=== PATIENT | male | born 1980 | race American Indian/Alaskan Native ===

== ENCOUNTER 2020-07-22 21:13 | Inpatient (IN) | payer OTHER ==
[2020-07-22] MEDS ORDERED: SODIUM CHLORIDE 0.9% 1000 ML 1,000 ML IV ONE ×2 (21:16→22:25)
--- NOTE | 2020-07-22 21:19 | Emergency Department Report ---
- General Chief complaint: Weakness Stated complaint: WEAKNESS/TIRED PUI?: No Time Seen by Provider: 07/22/20 21:15 Source: patient, EMS Mode of arrival: Stretcher Limitations: Altered Mental Status - History of Present Illness Initial comments: Patient is a 39-year-old male that presents emergency room with complaints of weakness and lethargy. Patient's family called 911. Patient brought to the ER by EMS. EMS report received. EMS states that the call came out as patient was lethargic. EMS states when they arrived the patient was in the bathtub and unable to get out due to global weakness. EMS states that the patient sugar was checked and and the machine just read high. Patient states he is just been tired all day today. Patient states he has not had energy all day. Patient states his symptoms are worsening. Patient states that he is also been increased urination for 2 weeks. Patient states he has had nocturia for 2 weeks. Patient states she has had increased thirst and hunger as well. Patient denies fall. Patient denies trauma. Patient denies head injury. Patient denies loss of consciousness or syncope. Patient states he does not have a history of diabetes. Patient states he has no past medical history and takes no medications. Patient denies recent travel. Patient denies recent international travel. Patient denies exposure to the novel coronavirus. Patient denies sick contacts. Patient denies fever and chills. Patient denies cough. Patient denies diarrhea. Patient denies coming in contact with anybody with symptoms of the novel coronavirus. MD Complaint: generalized weakness -: Sudden Location: generalized Severity: severe Consistency: constant Improves with: rest Worsens with: movement, exertion Associated Symptoms: loss of appetite. denies: chest pain, confusion, dark stools, diaphoresis, dysuria, easy bruising, fever/chills, headaches, rash, shortness of breath, syncope - Related Data Home Medications Medication Instructions Recorded Confirmed Last Taken Amoxicillin CAP 125 mg PO BID 07/23/20 07/23/20 07/22/20 125 mg Allergies Allergy/AdvReac Type Severity Reaction Status Date / Time No Known Allergies Allergy Unverified 07/22/20 22:27 ED Review of Systems ROS: Stated complaint: WEAKNESS/TIRED Other details as noted in HPI Constitutional: malaise, weakness. denies: chills, fever Eyes: denies: eye pain, eye discharge, vision change ENT: denies: ear pain, throat pain Respiratory: denies: cough, shortness of breath, wheezing Cardiovascular: denies: chest pain, palpitations Endocrine: no symptoms reported, increased hunger, increased thirst, increased urine Gastrointestinal: denies: abdominal pain, nausea, diarrhea Genitourinary: denies: urgency, dysuria Musculoskeletal: denies: back pain, joint swelling, arthralgia Skin: denies: rash, lesions Neurological: denies: headache, weakness, paresthesias Psychiatric: denies: anxiety, depression Hematological/Lymphatic: denies: easy bleeding, easy bruising ED Past Medical Hx - Past Medical History Previous Medical History?: No - Surgical History Past Surgical History?: No - Family History Family history: no significant - Social History Smoking Status: Never Smoker Substance Use Type: None - Medications Home Medications: Home Medications Medication Instructions Recorded Confirmed Last Taken Type Amoxicillin CAP 125 mg PO BID 07/23/20 07/23/20 07/22/20 History 125 mg ED Physical Exam - General General appearance: in no apparent distress, lethargic (But easily arousable) - Head Head exam: Present: atraumatic, normocephalic - Eye Eye exam: Present: normal appearance, PERRL Pupils: Present: normal accommodation - ENT ENT exam: Present: mucous membranes moist - Neck Neck exam: Present: normal inspection - Respiratory Respiratory exam: Present: normal lung sounds bilaterally. Absent: respiratory distress - Cardiovascular Cardiovascular Exam: Present: regular rate, normal rhythm. Absent: systolic murmur, diastolic murmur, rubs, gallop - GI/Abdominal GI/Abdominal exam: Present: soft, normal bowel sounds. Absent: distended, tenderness - Rectal Rectal exam: Present: deferred - Extremities Exam Extremities exam: Present: normal inspection - Back Exam Back exam: Present: normal inspection - Neurological Exam Neurological exam: Present: altered, oriented X3, CN II-XII intact. Absent: motor sensory deficit - Psychiatric Psychiatric exam: Present: normal affect, normal mood - Skin Skin exam: Present: warm, dry, intact, normal color. Absent: rash - Assessment Assessment Interval: Baseline - Level of Consciousness 1a. Level of Consciousness: alert/keenly responsive - LOC Questions 1b. LOC Questions: answers both correctly - LOC Command 1c. LOC Commands: performs tasks correctly - Best Gaze 2. Best Gaze: normal - Visual 3. Visual: no visual loss - Facial Palsy 4. Facial Palsy: normal symmetrical movement - Motor Arm 5a. Motor Arm Left: no drift 5b. Motor Arm Right: no drift - Motor Leg 6a. Motor Leg Left: no drift 6b. Motor Leg Right: no drift - Limb Ataxia 7. Limb Ataxia: absent - Sensory 8. Sensory: normal - Best Language 9. Best Language: no aphasia - Dysarthria 10. Dysarthria: normal - Extinction and Inattention 11. Extinction/Inattention: no abnormality - Scoring Total Score: 0 Stroke Severity: No Stroke Symptoms ED Course Vital Signs 07/22/20 07/22/20 07/22/20 21:26 21:32 21:46 Temperature 98.4 F Pulse Rate 125 H 130 H 126 H Respiratory 22 24 16 Rate Blood Pressure 136/100 Blood Pressure 136/100 [right arm] O2 Sat by Pulse 95 96 Oximetry 07/22/20 07/22/20 07/22/20 22:15 22:30 22:46 Temperature Pulse Rate 130 H 134 H 128 H Respiratory 14 24 16 Rate Blood Pressure 136/100 132/88 132/88 Blood Pressure [right arm] O2 Sat by Pulse 76 L 99 Oximetry 07/22/20 07/22/20 07/22/20 23:00 23:25 23:30 Temperature Pulse Rate 131 H 123 H 126 H Respiratory 19 13 12 Rate Blood Pressure 131/95 131/101 139/100 Blood Pressure [right arm] O2 Sat by Pulse 97 100 Oximetry 07/22/20 07/22/20 07/23/20 23:46 23:54 00:00 Temperature Pulse Rate 132 H 120 H 118 H Respiratory 19 22 28 H Rate Blood Pressure 139/100 139/100 139/100 Blood Pressure [right arm] O2 Sat by Pulse 95 98 98 Oximetry 07/23/20 07/23/20 07/23/20 00:16 00:30 00:45 Temperature Pulse Rate 127 H 115 H Respiratory 15 21 Rate Blood Pressure 131/95 131/95 131/95 Blood Pressure [right arm] O2 Sat by Pulse 99 99 97 Oximetry - Reevaluation(s) Reevaluation #1: Patient receiving fluids. Patient more lucid. Patient more easily aroused. Patient still tachycardic on the pillowcase cleaner. 07/22/20 22:05 Reevaluation #2: Labs reviewed. Patient will be started on insulin drip. Patient agrees with plan of care. 07/22/20 22:20 Reevaluation #3: I discussed all results with patient. I discussed plan of care with patient. Patient agrees with plan of care and admission. Patient to be admitted to the hospitalist service. 07/22/20 22:57 Reevaluation #4: Calcium chloride ordered for hyperkalemia. Patient will also be given a dose of Kayexalate. 07/22/20 23:49 - Consultations Consultation #1: Hospitalist consulted for admission. Hospitalist to admit patient. 07/22/20 22:48 ED Medical Decision Making - Lab Data Result diagrams: 07/22/20 21:21 07/22/20 22:37 - EKG Data -: EKG Interpreted by Me EKG shows normal: sinus rhythm, axis, intervals, QRS complexes, ST-T waves Rate: tachycardia - Radiology Data Radiology results: report reviewed CT HEAD WITHOUT CONTRAST INDICATION : Weakness. TECHNIQUE: Axial, coronal and sagittal CT imaging was performed from the skull apex through the skull base without contrast. All CT scans at this location are performed using CT dose reduction for ALARA by means of automated exposure control. COMPARISON: None available. FINDINGS: PARENCHYMA: No mass, midline shift, hemorrhage, extraaxial collection or acute territorial infarction. VENTRICLES: Symmetric and normal in size. SOFT TISSUES: No significant abnormality of the included soft tissues/orbits. BONES: No acute osseous abnormality. SINUSES: No significant abnormality. ADDITIONAL FINDINGS: None. IMPRESSION: 1. No acute intracranial abnormality. - Medical Decision Making Patient is a 39-year-old male that presents emergency room with complaints of weakness, lethargy, hyperglycemia. Patient brought in by EMS. Patient D stick by EMS was read as high. Patient had fluids started by EMS. Patient given 2 L of fluid in the ER. Patient had labs done which were consistent with renal failure, electrolyte imbalance, DKA, hyperglycemia, dehydration. Patient started on a DKA protocol to include fluids and insulin drip. Patient had a head CT which was negative for acute findings. Patient admitted to the ICU. Patient admitted to the hospitalist service for further evaluation and treatment. - Differential Diagnosis DKA, hyperglycemia, dehydration, electrolyte imbalance, renal failure Critical Care Time: Yes Critical care time in (mins) excluding proc time.: 40 Critical care attestation.: If time is entered above; I have spent that time in minutes in the direct care of this critically ill patient, excluding procedure time. Critical Care Time: 40 minutes ED Disposition Clinical Impression: Lethargic, Metabolic encephalopathy, Weakness, Hyperkalemia DKA (diabetic ketoacidoses) Qualifiers: Diabetes mellitus type: type 2 Diabetes mellitus complication detail: with coma Qualified Code(s): E11.11 - Type 2 diabetes mellitus with ketoacidosis with coma Renal failure Qualifiers: Renal failure chronicity: acute Acute renal failure type: unspecified Qualified Code(s): N17.9 - Acute kidney failure, unspecified Rhabdomyolysis Qualifiers: Rhabdomyolysis type: non-traumatic Qualified Code(s): M62.82 - Rhabdomyolysis Disposition: DC-09 OP ADMIT IP TO THIS HOSP Is pt being admited?: Yes Does the pt Need Aspirin: No Condition: Critical Time of Disposition: 23:52
[2020-07-22 21:34] LABS: Hemoglobin 19.6 gm/dl (11.8-15.2); Mean Corpuscular HGB Conc 34 % (32-34); Mean Corpuscular Volume 85 fl (84-94); Platelet Count 138 K/mm3 (140-440); Red Cell Distribution Width 13.4 % (13.2-15.2)
[2020-07-22 21:55] LABS: Albumin 4.4 g/dL (3.9-5); Calcium 9.5 mg/dL (8.4-10.2)
[2020-07-22 21:59] LABS: Bacteria,Urine 1+ /HPF (Negative); Bilirubin,Urine NEG (Negative); Blood,Urine LG (Negative); Color,Urine Straw (Yellow); Mucus,Urine FEW /HPF; Urobilinogen,Urine < 2.0 mg/dL (<2.0)
--- NOTE | 2020-07-22 22:24 | Cat Scan Report ---
CT HEAD WITHOUT CONTRAST INDICATION : Weakness. TECHNIQUE: Axial, coronal and sagittal CT imaging was performed from the skull apex through the skul l base without contrast. All CT scans at this location are performed using CT dose reduction for ALA RA by means of automated exposure control. COMPARISON: None available. FINDINGS: PARENCHYMA: No mass, midline shift, hemorrhage, extraaxial collection or acute territorial infarctio n. VENTRICLES: Symmetric and normal in size. SOFT TISSUES: No significant abnormality of the included soft tissues/orbits. BONES: No acute osseous abnormality. SINUSES: No significant abnormality. ADDITIONAL FINDINGS: None. IMPRESSION: 1. No acute intracranial abnormality. Signer Name: Major Blake MD Signed: 07/22/2020 10:19 PM Workstation Name: [id number]
[2020-07-22 22:25] LABS: Basophils % (Manual) 0 % (0.0-1.8); Eosinophils % (Manual) 0 % (0.0-4.3); RBC Morphology Normal; Total Cells Counted 100
[2020-07-22] MEDS ORDERED: DEXTROSE 50% IN WATER (25GM) 50 ML SYRINGE IV PRN (22:25)
[2020-07-22] MEDS ORDERED: D5W/0.45% NACL/KCL 20 MEQ 20 MEQ/1,000 ML BAG IV SCH (23:00)
[2020-07-22] MEDS: INSULIN REGULAR, HUMAN 100 UNITS in SODIUM CHLORIDE 0.9% 99 ML IV SCH ×2 (23:20→23:59)
[2020-07-22 23:26] LABS: Calcium 9.3 mg/dL (8.4-10.2)
[2020-07-22] MEDS ORDERED: CALCIUM CHLORIDE 1,000 MG/10 ML SYRINGE IV ONE ×2 (23:45→23:52)
[2020-07-22] MEDS ORDERED: CALCIUM CHLORIDE 1,000 MG/10 ML SDV IVP ONE (23:47)
[2020-07-22] MEDS ORDERED: SODIUM POLYSTYRENE 15 GM/60 ML ORAL LIQD PO ONE (23:50)
[2020-07-23] MEDS ORDERED: SODIUM CHLORIDE 0.9% 1000 ML 1,000 ML IV SCH (01:45)
--- NOTE | 2020-07-23 01:49 | History and Physical Report ---
History of Present Illness Date of examination: 07/23/20 Date of admission: 07/22/20 23:23 Chief complaint: Lethargy Altered mental Status History of present illness: Patient is a 39-year-old -French male with no significant past medical history complaining of weakness and lethargy.. Patient was said to be in his bathtub and was unable to to get out due to his weakness. Family was said to have called EMS and was subsequently brought to the emergency room. Patient states that he has just been tired and no energy. He has had increased urination for about 2 weeks and has also had nocturia for about 2 weeks. He has had increased thirst and hunger. Patient was not quite coherent and not a good historian during my examination. Work-up in the emergency room reveals that patient is in DKA and he also had hyperkalemia. He has been started on IV fluid and insulin drip. Patient also had calcium chloride and Kayexalate in the emergency room for the hyperkalemia. He will be closely monitored in the intensive care unit. Past History Past Medical History: No medical history Past Surgical History: No surgical history Social history: no significant social history Family history: no significant family history Medications and Allergies Allergies Allergy/AdvReac Type Severity Reaction Status Date / Time No Known Allergies Allergy Unverified 07/22/20 22:27 Home Medications Medication Instructions Recorded Confirmed Last Taken Type Amoxicillin CAP 125 mg PO BID 07/23/20 07/23/20 07/22/20 History 125 mg Active Meds: Active Medications Dextrose (D50w (25gm) Syringe) 50 ml IV Q30MIN PRN; Protocol PRN Reason: Hypoglycemia Insulin Human Regular 100 (units/ Sodium Chloride) 100 mls @ 1 mls/hr IV TITR BR[facility]; Protocol Last Admin: 07/22/20 23:59 Dose: 8 units/hr, 8 mls/hr Documented by: Potassium Chloride/Dextrose/Sod Cl (D5w/0.45% Nacl/Kcl 20 Meq) 20 meq in 1,000 mls @ 125 mls/hr IV DIRECT BR[facility] Review of Systems ROS unobtainable: due to mental status Exam - Constitutional Vitals: Temp Pulse Resp BP Pulse Ox 98.9 F 123 H 20 151/101 99 07/23/20 01:20 07/23/20 01:20 07/23/20 01:20 07/23/20 01:20 07/23/20 01:20 General appearance: Present: no acute distress, well-nourished - EENT Eyes: Present: PERRL, EOM intact. Absent: scleral icterus ENT: hearing intact, clear oral mucosa, dentition normal - Neck Neck: Present: supple, normal ROM - Respiratory Respiratory effort: normal Respiratory: bilateral: CTA - Cardiovascular Rhythm: regular Heart Sounds: Present: S1 & S2. Absent: gallop, systolic murmur, diastolic murmur, rub - Extremities Extremities: no ischemia, pulses intact, pulses symmetrical, No edema, Full ROM Peripheral Pulses: within normal limits - Abdominal General gastrointestinal: Present: soft, non-tender, non-distended, normal bowel sounds. Absent: mass - Integumentary Integumentary: Present: clear, warm, dry - Musculoskeletal Musculoskeletal: strength equal bilaterally - Psychiatric Psychiatric: cooperative, other (confused) - Neurologic Neurologic: CNII-XII intact, no focal deficits, moves all extremities HEART Score - HEART Score Troponin: Troponin T 0.015 ng/mL (0.00-0.029) 07/22/20 21:21 Results - Labs CBC & Chem 7: 07/22/20 21:21 07/23/20 02:26 Labs: Abnormal lab results 07/22/20 07/22/20 07/22/20 Range/Units 21:21 21:21 21:21 WBC 14.9 H (4.5-11.0) K/mm3 RBC 6.80 H (3.65-5.03) M/mm3 Hgb 19.6 H (11.8-15.2) gm/dl Hct 58.0 H (35.5-45.6) % Plt Count 138 L (140-440) K/mm3 Seg Neuts % (Manual) 90.0 H (40.0-70.0) % Lymphocytes % (Manual) 5.0 L (13.4-35.0) % Seg Neutrophils # Man 13.4 H (1.8-7.7) K/mm3 Lymphocytes # (Manual) 0.7 L (1.2-5.4) K/mm3 VBG pH 7.269 L (7.320-7.420) Sodium 156 H (137-145) mmol/L Potassium 5.6 H (3.6-5.0) mmol/L Chloride (98-107) mmol/L Carbon Dioxide 17 L (22-30) mmol/L BUN 47 H (9-20) mg/dL Creatinine 2.1 H (0.8-1.3) mg/dL Glucose 740 H* (75-100) mg/dL POC Glucose (70-105) Phosphorus (2.5-4.5) mg/dL Magnesium 4.10 H (1.7-2.3) mg/dL AST 54 H (5-40) units/L Total Creatine Kinase 4587 H (55-170) units/L Total Protein 8.5 H (6.3-8.2) g/dL Urine WBC (Auto) (0.0-6.0) /HPF 07/22/20 07/22/20 07/22/20 Range/Units 21:31 22:37 22:37 WBC (4.5-11.0) K/mm3 RBC (3.65-5.03) M/mm3 Hgb (11.8-15.2) gm/dl Hct (35.5-45.6) % Plt Count (140-440) K/mm3 Seg Neuts % (Manual) (40.0-70.0) % Lymphocytes % (Manual) (13.4-35.0) % Seg Neutrophils # Man (1.8-7.7) K/mm3 Lymphocytes # (Manual) (1.2-5.4) K/mm3 VBG pH (7.320-7.420) Sodium 148 H D (137-145) mmol/L Potassium 7.2 H* D (3.6-5.0) mmol/L Chloride 108.5 H (98-107) mmol/L Carbon Dioxide 8 L* D (22-30) mmol/L BUN 47 H (9-20) mg/dL Creatinine 1.8 H (0.8-1.3) mg/dL Glucose 684 H* (75-100) mg/dL POC Glucose (70-105) Phosphorus 6.30 H (2.5-4.5) mg/dL Magnesium 4.50 H (1.7-2.3) mg/dL AST (5-40) units/L Total Creatine Kinase (55-170) units/L Total Protein (6.3-8.2) g/dL Urine WBC (Auto) 10.0 H (0.0-6.0) /HPF 07/22/20 07/23/20 07/23/20 Range/Units 22:50 00:14 01:17 WBC (4.5-11.0) K/mm3 RBC (3.65-5.03) M/mm3 Hgb (11.8-15.2) gm/dl Hct (35.5-45.6) % Plt Count (140-440) K/mm3 Seg Neuts % (Manual) (40.0-70.0) % Lymphocytes % (Manual) (13.4-35.0) % Seg Neutrophils # Man (1.8-7.7) K/mm3 Lymphocytes # (Manual) (1.2-5.4) K/mm3 VBG pH (7.320-7.420) Sodium (137-145) mmol/L Potassium (3.6-5.0) mmol/L Chloride (98-107) mmol/L Carbon Dioxide (22-30) mmol/L BUN (9-20) mg/dL Creatinine (0.8-1.3) mg/dL Glucose (75-100) mg/dL POC Glucose 477 H 465 H > 500 H (70-105) Phosphorus (2.5-4.5) mg/dL Magnesium (1.7-2.3) mg/dL AST (5-40) units/L Total Creatine Kinase (55-170) units/L Total Protein (6.3-8.2) g/dL Urine WBC (Auto) (0.0-6.0) /HPF Assessment and Plan - Patient Problems (1) DKA (diabetic ketoacidoses) Current Visit: Yes Status: Acute Qualifiers: Diabetes mellitus type: type 2 Diabetes mellitus complication detail: with coma Qualified Code(s): E11.11 - Type 2 diabetes mellitus with ketoacidosis with coma Plan to address problem: Patient started on IV fluid and insulin drip. We will monitor blood glucose according to protocol. (2) Hyperkalemia Current Visit: Yes Status: Acute Plan to address problem: Patient has been given IV fluid, calcium chloride and Kayexalate. Will monitor potassium levels. (3) DVT prophylaxis Current Visit: Yes Status: Acute Plan to address problem: We will place patient on subcutaneous heparin. (4) Full code status Current Visit: Yes Status: Acute
[2020-07-23 03:24] LABS: BUN/Creatinine Ratio 30; Blood Urea Nitrogen 45 mg/dL (9-20); Calcium 10.3 mg/dL (8.4-10.2); Hemolysis Index 31
[2020-07-23] MEDS: HEPARIN 5,000 UNIT/1 ML VIAL SUB-Q SCH ×3 (05:58→22:42)
[2020-07-23 06:11] LABS: BUN/Creatinine Ratio 29; Blood Urea Nitrogen 40 mg/dL (9-20); Hemolysis Index 13
[2020-07-23] MEDS: INSULIN REGULAR, HUMAN 100 UNITS in SODIUM CHLORIDE 0.9% 99 ML IV SCH (08:22)
[2020-07-23] MEDS: DEXTROSE 5% IN WATER 1,000 ML IV SCH ×3 (09:40→21:35)
[2020-07-23] MEDS ORDERED: LACTATED RINGERS 1,000 ML IV ONE (10:58)
--- NOTE | 2020-07-23 14:23 | Consultation ---
History of Present Illness Consult date: 07/23/20 Requesting physician: YANG EVANS Reason for consult: other (DKA, severe hypernatremia, acute metabolic encephalopathy) History of present illness: Patient is a 39-year-old -[place] male with no significant past medical history complaining of weakness and lethargy.. Patient was said to be in his bathtub and was unable to to get out due to his weakness. Family was said to have called EMS and was subsequently brought to the emergency room. Patient states that he has just been tired and no energy. He has had increased urination for about 2 weeks and has also had nocturia for about 2 weeks. He has had increased thirst and hunger. Patient was not quite coherent and not a good historian during my examination. Work-up in the emergency room reveals that patient is in DKA and he also had hyperkalemia. He has been started on IV fluid and insulin drip. Patient also had calcium chloride and Kayexalate in the emergency room for the hyperkalemia. He will be closely monitored in the intensive care unit. Patient was seen and examined. Vitals, labs,medications ,chart reviewed. Remains extremely confused, unable to get a good history from him. Currently on insulin infusion and D5 1/2NS Past History Past Medical History: No medical history Past Surgical History: No surgical history Social history: no significant social history Family history: no significant family history Medications and Allergies Allergies Allergy/AdvReac Type Severity Reaction Status Date / Time No Known Allergies Allergy Unverified 07/22/20 22:27 Home Medications Medication Instructions Recorded Confirmed Last Taken Type Amoxicillin CAP 125 mg PO BID 07/23/20 07/23/20 07/22/20 History 125 mg Active Meds: Active Medications Dextrose (D50w (25gm) Syringe) 50 ml IV Q30MIN PRN; Protocol PRN Reason: Hypoglycemia Heparin Sodium (Porcine) (Heparin) 5,000 unit SUB-Q Q8HR [facility] Last Admin: 07/23/20 05:58 Dose: 5,000 unit Documented by: Insulin Human Regular 100 (units/ Sodium Chloride) 100 mls @ 1 mls/hr IV TITR [facility]; Protocol Last Titration: 07/23/20 13:19 Dose: 10 units/hr, 10 mls/hr Documented by: Dextrose (D5w) 1,000 mls @ 100 mls/hr IV DIRECT [facility] Last Admin: 07/23/20 09:40 Dose: 100 mls/hr Documented by: Sodium Chloride (Sodium Chloride Flush Syringe 10 Ml) 10 ml IV BID [facility] Last Admin: 07/23/20 09:52 Dose: 10 ml Documented by: Sodium Chloride (Sodium Chloride Flush Syringe 10 Ml) 10 ml IV PRN PRN PRN Reason: LINE FLUSH Review of Systems ROS unobtainable: due to mental status Physical Examination Vital signs: Vital Signs Temp Pulse Resp BP Pulse Ox 98.4 F 125 H 22 136/100 95 07/22/20 21:26 07/22/20 21:26 07/22/20 21:26 07/22/20 21:26 07/22/20 21:26 General appearance: agitated, appears uncomfortable Eyes: non-icteric ENT: oropharynx dry Neck: supple, no lymphadenopathy, no JVD Effort: mildly labored Ascultation: Bilateral: clear, diminished breath sounds Cardiovascular: other (Tachycardia, S1,S2) Gastrointestinal: normoactive bowel sounds, soft, non-tender, non-distended Integumentary: normal Extremities: no cyanosis, no edema, pink and warm, pulses normal non-focal exam (moves all extemities), pupils equal and round anxious Results - Laboratory Findings CBC and BMP: 07/24/20 04:43 07/25/20 05:48 Abnormal lab findings: Abnormal Labs 07/22/20 07/22/20 07/22/20 21:21 21:21 21:21 WBC 14.9 H RBC 6.80 H Hgb 19.6 H Hct 58.0 H Plt Count 138 L Seg Neuts % (Manual) 90.0 H Lymphocytes % (Manual) 5.0 L Seg Neutrophils # Man 13.4 H Lymphocytes # (Manual) 0.7 L VBG pH 7.269 L Sodium 156 H Potassium 5.6 H Chloride Carbon Dioxide 17 L BUN 47 H Creatinine 2.1 H Glucose 740 H* POC Glucose Hemoglobin A1c Calcium Phosphorus Magnesium 4.10 H AST 54 H Total Creatine Kinase 4587 H Total Protein 8.5 H Urine WBC (Auto) 07/22/20 07/22/20 07/22/20 21:31 22:37 22:37 WBC RBC Hgb Hct Plt Count Seg Neuts % (Manual) Lymphocytes % (Manual) Seg Neutrophils # Man Lymphocytes # (Manual) VBG pH Sodium 148 H D Potassium 7.2 H* D Chloride 108.5 H Carbon Dioxide 8 L* D BUN 47 H Creatinine 1.8 H Glucose 684 H* POC Glucose Hemoglobin A1c Calcium Phosphorus 6.30 H Magnesium 4.50 H AST Total Creatine Kinase Total Protein Urine WBC (Auto) 10.0 H 07/22/20 07/23/20 07/23/20 22:50 00:14 01:17 WBC RBC Hgb Hct Plt Count Seg Neuts % (Manual) Lymphocytes % (Manual) Seg Neutrophils # Man Lymphocytes # (Manual) VBG pH Sodium Potassium Chloride Carbon Dioxide BUN Creatinine Glucose POC Glucose 477 H 465 H > 500 H Hemoglobin A1c Calcium Phosphorus Magnesium AST Total Creatine Kinase Total Protein Urine WBC (Auto) 07/23/20 07/23/20 07/23/20 02:26 02:26 02:26 WBC RBC Hgb Hct Plt Count Seg Neuts % (Manual) Lymphocytes % (Manual) Seg Neutrophils # Man Lymphocytes # (Manual) VBG pH Sodium 164 H* D Potassium 5.2 H D Chloride 120.6 H Carbon Dioxide 18 L D BUN 45 H Creatinine 1.5 H Glucose 497 H POC Glucose Hemoglobin A1c 11.7 H Calcium 10.3 H Phosphorus Magnesium 3.90 H AST Total Creatine Kinase Total Protein Urine WBC (Auto) 07/23/20 07/23/20 07/23/20 02:27 03:15 04:31 WBC RBC Hgb Hct Plt Count Seg Neuts % (Manual) Lymphocytes % (Manual) Seg Neutrophils # Man Lymphocytes # (Manual) VBG pH Sodium Potassium Chloride Carbon Dioxide BUN Creatinine Glucose POC Glucose 406 H 392 H 369 H Hemoglobin A1c Calcium Phosphorus Magnesium AST Total Creatine Kinase Total Protein Urine WBC (Auto) 07/23/20 07/23/20 07/23/20 05:21 05:34 06:14 WBC RBC Hgb Hct Plt Count Seg Neuts % (Manual) Lymphocytes % (Manual) Seg Neutrophils # Man Lymphocytes # (Manual) VBG pH Sodium 166 H* Potassium Chloride 129.4 H Carbon Dioxide BUN 40 H Creatinine 1.4 H Glucose 340 H POC Glucose 280 H 140 H Hemoglobin A1c Calcium Phosphorus Magnesium AST Total Creatine Kinase Total Protein Urine WBC (Auto) 07/23/20 07/23/20 07/23/20 06:37 08:02 10:17 WBC RBC Hgb Hct Plt Count Seg Neuts % (Manual) Lymphocytes % (Manual) Seg Neutrophils # Man Lymphocytes # (Manual) VBG pH Sodium Potassium Chloride Carbon Dioxide BUN Creatinine Glucose POC Glucose 290 H 285 H 107 H Hemoglobin A1c Calcium Phosphorus Magnesium AST Total Creatine Kinase Total Protein Urine WBC (Auto) 07/23/20 11:18 WBC RBC Hgb Hct Plt Count Seg Neuts % (Manual) Lymphocytes % (Manual) Seg Neutrophils # Man Lymphocytes # (Manual) VBG pH Sodium Potassium Chloride Carbon Dioxide BUN Creatinine Glucose POC Glucose 267 H Hemoglobin A1c Calcium Phosphorus Magnesium AST Total Creatine Kinase Total Protein Urine WBC (Auto) Assessment and Plan -DKA (diabetic ketoacidoses) -Acute metabolic encephalopathy -Hypernatremia -Hyperkalemia -SHANICE, likely vasomotor nephropathy -Leukocytosis -Continue ICU care -Change IVF to D5 Water, may need small bowel feeding tube for free water flushes -Continue IV insulin therapy per protocol -Serial BMPS -Medical management of hyperkalemia, redistribution therapies -Fluid bolus 1L LR -Monitor and trend leukocytosis, currently does not appear to have a focus of infection, this is probably hemoconcentration -VTE prophylaxis -Aspiration precautions, anti-emetics as indicated -Avoid nephrotoxins, renally dose all medications -Once he is more awake, alert and is able to participate in discussions, needs diabetic education -RD consult placed -All other care per primary and consulting physicians Discussed with the ICU team-RN, Life threatening condition- Diabetic ketaoacidosis, acute renal failure, severe hypernatremia, acute metabolic encephalopathy Mortality/Morbidity- High Complexity of medical decision making- High CONDITION: CRITICAL PROGNOSIS: GUARDED CODE STATUS: FULL CODE The high probability of a clinically significant, sudden or life-threatening deterioration of the [endocrine, neurology, renal ] system(s) required my full and direct attention, intervention and personal management. The aggregate critical care time was [32] minutes without overlap. Time includes spent on; [x] Data Review and interpretation [x] Patient assessment and monitoring of vital signs [x] Documentation [x] Medication orders and management
[2020-07-23 15:41] LABS: ABG Base Excess 1.4 mmol/L (-2.0-3.0); ABG HCO3 24.9 mmol/L (20.0-26.0); ABG Methemoglobin 0.6 % (0.0-1.5); ABG Oxygen Saturation 96.8 % (95.0-99.0); ABG PCO2 36.5 mm Hg; ABG PH 7.451 pH Units (7.350-7.450); ABG PO2 84.1 mm Hg (80.0-90.0)
[2020-07-23 15:48] LABS: BUN/Creatinine Ratio TNR; Blood Urea Nitrogen TNR mg/dL (9-20)
[2020-07-23 15:50] LABS: Calcium TNR mg/dL (8.4-10.2)
[2020-07-23 15:51] LABS: Hemolysis Index TNR
--- NOTE | 2020-07-23 16:20 | Progress Note ---
Assessment and Plan --DKA (diabetic ketoacidoses) Patient started on IV fluid and insulin drip. We will monitor blood glucose according to protocol. --Acute metabolic encephalopathy Likely from DKA and hyponatremia Continue to monitor clinically with frequent neuro exam --hypernatremia change fluid to D5w, monitor BMP consult nephrology -- Hyperkalemia Patient has been given IV fluid, calcium chloride and Kayexalate. Will monitor potassium levels. --SHANICE, likely vasomotor nephropathy cont iv fluid and monitor BMP -- DVT prophylaxis patient on subcutaneous heparin. -- Full code status 07/23: Na 166 today, change iv fluid to d5w, monitor BMP, cont insulin drip. Subjective Date of service: 07/23/20 Interval history: Patient seen and examined. Medical records and medication list reviewed. No acute event overnight noted by the RN. Patient denies any chest pain or difficulty breathing. Patient states that he wants to eat, patient appears to be intermittently confu sed and lethargic Discussed plan of care at bedside with patient's RN. Objective - Exam Narrative Exam: GENERAL: well-developed and well-nourished lying on bed appeared to be in no discomfort. HEENT: Normocephalic. Atraumatic. No conjunctival congestion or icterus. Patient has moist mucous membranes. NECK: Supple. Trachea midline. CHEST/LUNGS: Clear to auscultated bilaterally, breathing nonlabored. No wheezes crackles or rhonchi. HEART/CARDIOVASCULAR: Regular in rate and rhythm. S1 and S2 positive. ABDOMEN: Abdomen is soft, nontender. Patient has normal bowel sounds. SKIN: There is no rash. Warm and dry. NEURO: No focal motor deficit. Follows command. Patient appears to be slightly confused and lethargic MUSCULOSKELETAL: No joint effusion or tenderness. EXTRIMITY: No edema, no cyanosis or clubbing. PSYCH: Cooperative. - Constitutional Vitals: Vital Signs - 12hr 07/23/20 07/23/20 07/23/20 04:10 04:20 04:30 Pulse Rate 129 H 128 H 127 H Respiratory Rate Blood Pressure 133/92 133/92 138/92 O2 Sat by Pulse 100 98 98 Oximetry 07/23/20 07/23/20 07/23/20 04:35 04:40 04:50 Pulse Rate 127 H 127 H 125 H Respiratory 20 Rate Blood Pressure 138/92 138/92 O2 Sat by Pulse 99 98 100 Oximetry 07/23/20 07/23/20 07/23/20 05:00 05:10 05:20 Pulse Rate 129 H 126 H 125 H Respiratory Rate Blood Pressure 126/89 126/89 126/89 O2 Sat by Pulse 99 98 100 Oximetry 07/23/20 07/23/20 07/23/20 05:30 05:40 05:50 Pulse Rate 125 H 128 H 126 H Respiratory Rate Blood Pressure 130/90 130/90 130/90 O2 Sat by Pulse 99 100 100 Oximetry 07/23/20 07/23/20 07/23/20 06:00 06:02 06:10 Pulse Rate 126 H 126 H Respiratory 20 Rate Blood Pressure 122/97 122/97 O2 Sat by Pulse 100 99 99 Oximetry 07/23/20 07/23/20 07/23/20 06:20 06:30 06:40 Pulse Rate 127 H 128 H 126 H Respiratory Rate Blood Pressure 122/97 132/93 132/93 O2 Sat by Pulse 100 100 100 Oximetry 07/23/20 07/23/20 07/23/20 06:50 08:00 12:00 Pulse Rate 125 H 121 H 126 H Respiratory 20 Rate Blood Pressure 132/93 O2 Sat by Pulse 100 100 Oximetry - Labs CBC & Chem 7: 07/24/20 04:43 07/25/20 05:48 Labs: Abnormal lab results 07/22/20 07/22/20 07/22/20 Range/Units 21:21 21:21 21:21 WBC 14.9 H (4.5-11.0) K/mm3 RBC 6.80 H (3.65-5.03) M/mm3 Hgb 19.6 H (11.8-15.2) gm/dl Hct 58.0 H (35.5-45.6) % Plt Count 138 L (140-440) K/mm3 Seg Neuts % (Manual) 90.0 H (40.0-70.0) % Lymphocytes % (Manual) 5.0 L (13.4-35.0) % Seg Neutrophils # Man 13.4 H (1.8-7.7) K/mm3 Lymphocytes # (Manual) 0.7 L (1.2-5.4) K/mm3 ABG pH (7.350-7.450) pH Units ABG Hemoglobin (14.0-18.0) gm/dl VBG pH 7.269 L (7.320-7.420) Oxyhemoglobin (95.0-99.0) % Sodium 156 H (137-145) mmol/L Potassium 5.6 H (3.6-5.0) mmol/L Chloride (98-107) mmol/L Carbon Dioxide 17 L (22-30) mmol/L BUN 47 H (9-20) mg/dL Creatinine 2.1 H (0.8-1.3) mg/dL Glucose 740 H* (75-100) mg/dL POC Glucose (70-105) Hemoglobin A1c (4-6) % Calcium (8.4-10.2) mg/dL Phosphorus (2.5-4.5) mg/dL Magnesium 4.10 H (1.7-2.3) mg/dL AST 54 H (5-40) units/L Total Creatine Kinase 4587 H (55-170) units/L Total Protein 8.5 H (6.3-8.2) g/dL Urine WBC (Auto) (0.0-6.0) /HPF 07/22/20 07/22/20 07/22/20 Range/Units 21:31 22:37 22:37 WBC (4.5-11.0) K/mm3 RBC (3.65-5.03) M/mm3 Hgb (11.8-15.2) gm/dl Hct (35.5-45.6) % Plt Count (140-440) K/mm3 Seg Neuts % (Manual) (40.0-70.0) % Lymphocytes % (Manual) (13.4-35.0) % Seg Neutrophils # Man (1.8-7.7) K/mm3 Lymphocytes # (Manual) (1.2-5.4) K/mm3 ABG pH (7.350-7.450) pH Units ABG Hemoglobin (14.0-18.0) gm/dl VBG pH (7.320-7.420) Oxyhemoglobin (95.0-99.0) % Sodium 148 H D (137-145) mmol/L Potassium 7.2 H* D (3.6-5.0) mmol/L Chloride 108.5 H (98-107) mmol/L Carbon Dioxide 8 L* D (22-30) mmol/L BUN 47 H (9-20) mg/dL Creatinine 1.8 H (0.8-1.3) mg/dL Glucose 684 H* (75-100) mg/dL POC Glucose (70-105) Hemoglobin A1c (4-6) % Calcium (8.4-10.2) mg/dL Phosphorus 6.30 H (2.5-4.5) mg/dL Magnesium 4.50 H (1.7-2.3) mg/dL AST (5-40) units/L Total Creatine Kinase (55-170) units/L Total Protein (6.3-8.2) g/dL Urine WBC (Auto) 10.0 H (0.0-6.0) /HPF 07/22/20 07/23/20 07/23/20 Range/Units 22:50 00:14 01:17 WBC (4.5-11.0) K/mm3 RBC (3.65-5.03) M/mm3 Hgb (11.8-15.2) gm/dl Hct (35.5-45.6) % Plt Count (140-440) K/mm3 Seg Neuts % (Manual) (40.0-70.0) % Lymphocytes % (Manual) (13.4-35.0) % Seg Neutrophils # Man (1.8-7.7) K/mm3 Lymphocytes # (Manual) (1.2-5.4) K/mm3 ABG pH (7.350-7.450) pH Units ABG Hemoglobin (14.0-18.0) gm/dl VBG pH (7.320-7.420) Oxyhemoglobin (95.0-99.0) % Sodium (137-145) mmol/L Potassium (3.6-5.0) mmol/L Chloride (98-107) mmol/L Carbon Dioxide (22-30) mmol/L BUN (9-20) mg/dL Creatinine (0.8-1.3) mg/dL Glucose (75-100) mg/dL POC Glucose 477 H 465 H > 500 H (70-105) Hemoglobin A1c (4-6) % Calcium (8.4-10.2) mg/dL Phosphorus (2.5-4.5) mg/dL Magnesium (1.7-2.3) mg/dL AST (5-40) units/L Total Creatine Kinase (55-170) units/L Total Protein (6.3-8.2) g/dL Urine WBC (Auto) (0.0-6.0) /HPF 07/23/20 07/23/20 07/23/20 Range/Units 02:26 02:26 02:26 WBC (4.5-11.0) K/mm3 RBC (3.65-5.03) M/mm3 Hgb (11.8-15.2) gm/dl Hct (35.5-45.6) % Plt Count (140-440) K/mm3 Seg Neuts % (Manual) (40.0-70.0) % Lymphocytes % (Manual) (13.4-35.0) % Seg Neutrophils # Man (1.8-7.7) K/mm3 Lymphocytes # (Manual) (1.2-5.4) K/mm3 ABG pH (7.350-7.450) pH Units ABG Hemoglobin (14.0-18.0) gm/dl VBG pH (7.320-7.420) Oxyhemoglobin (95.0-99.0) % Sodium 164 H* D (137-145) mmol/L Potassium 5.2 H D (3.6-5.0) mmol/L Chloride 120.6 H (98-107) mmol/L Carbon Dioxide 18 L D (22-30) mmol/L BUN 45 H (9-20) mg/dL Creatinine 1.5 H (0.8-1.3) mg/dL Glucose 497 H (75-100) mg/dL POC Glucose (70-105) Hemoglobin A1c 11.7 H (4-6) % Calcium 10.3 H (8.4-10.2) mg/dL Phosphorus (2.5-4.5) mg/dL Magnesium 3.90 H (1.7-2.3) mg/dL AST (5-40) units/L Total Creatine Kinase (55-170) units/L Total Protein (6.3-8.2) g/dL Urine WBC (Auto) (0.0-6.0) /HPF 07/23/20 07/23/20 07/23/20 Range/Units 02:27 03:15 04:31 WBC (4.5-11.0) K/mm3 RBC (3.65-5.03) M/mm3 Hgb (11.8-15.2) gm/dl Hct (35.5-45.6) % Plt Count (140-440) K/mm3 Seg Neuts % (Manual) (40.0-70.0) % Lymphocytes % (Manual) (13.4-35.0) % Seg Neutrophils # Man (1.8-7.7) K/mm3 Lymphocytes # (Manual) (1.2-5.4) K/mm3 ABG pH (7.350-7.450) pH Units ABG Hemoglobin (14.0-18.0) gm/dl VBG pH (7.320-7.420) Oxyhemoglobin (95.0-99.0) % Sodium (137-145) mmol/L Potassium (3.6-5.0) mmol/L Chloride (98-107) mmol/L Carbon Dioxide (22-30) mmol/L BUN (9-20) mg/dL Creatinine (0.8-1.3) mg/dL Glucose (75-100) mg/dL POC Glucose 406 H 392 H 369 H (70-105) Hemoglobin A1c (4-6) % Calcium (8.4-10.2) mg/dL Phosphorus (2.5-4.5) mg/dL Magnesium (1.7-2.3) mg/dL AST (5-40) units/L Total Creatine Kinase (55-170) units/L Total Protein (6.3-8.2) g/dL Urine WBC (Auto) (0.0-6.0) /HPF 07/23/20 07/23/20 07/23/20 Range/Units 05:21 05:34 06:14 WBC (4.5-11.0) K/mm3 RBC (3.65-5.03) M/mm3 Hgb (11.8-15.2) gm/dl Hct (35.5-45.6) % Plt Count (140-440) K/mm3 Seg Neuts % (Manual) (40.0-70.0) % Lymphocytes % (Manual) (13.4-35.0) % Seg Neutrophils # Man (1.8-7.7) K/mm3 Lymphocytes # (Manual) (1.2-5.4) K/mm3 ABG pH (7.350-7.450) pH Units ABG Hemoglobin (14.0-18.0) gm/dl VBG pH (7.320-7.420) Oxyhemoglobin (95.0-99.0) % Sodium 166 H* (137-145) mmol/L Potassium (3.6-5.0) mmol/L Chloride 129.4 H (98-107) mmol/L Carbon Dioxide (22-30) mmol/L BUN 40 H (9-20) mg/dL Creatinine 1.4 H (0.8-1.3) mg/dL Glucose 340 H (75-100) mg/dL POC Glucose 280 H 140 H (70-105) Hemoglobin A1c (4-6) % Calcium (8.4-10.2) mg/dL Phosphorus (2.5-4.5) mg/dL Magnesium (1.7-2.3) mg/dL AST (5-40) units/L Total Creatine Kinase (55-170) units/L Total Protein (6.3-8.2) g/dL Urine WBC (Auto) (0.0-6.0) /HPF 07/23/20 07/23/20 07/23/20 Range/Units 06:37 08:02 10:17 WBC (4.5-11.0) K/mm3 RBC (3.65-5.03) M/mm3 Hgb (11.8-15.2) gm/dl Hct (35.5-45.6) % Plt Count (140-440) K/mm3 Seg Neuts % (Manual) (40.0-70.0) % Lymphocytes % (Manual) (13.4-35.0) % Seg Neutrophils # Man (1.8-7.7) K/mm3 Lymphocytes # (Manual) (1.2-5.4) K/mm3 ABG pH (7.350-7.450) pH Units ABG Hemoglobin (14.0-18.0) gm/dl VBG pH (7.320-7.420) Oxyhemoglobin (95.0-99.0) % Sodium (137-145) mmol/L Potassium (3.6-5.0) mmol/L Chloride (98-107) mmol/L Carbon Dioxide (22-30) mmol/L BUN (9-20) mg/dL Creatinine (0.8-1.3) mg/dL Glucose (75-100) mg/dL POC Glucose 290 H 285 H 107 H (70-105) Hemoglobin A1c (4-6) % Calcium (8.4-10.2) mg/dL Phosphorus (2.5-4.5) mg/dL Magnesium (1.7-2.3) mg/dL AST (5-40) units/L Total Creatine Kinase (55-170) units/L Total Protein (6.3-8.2) g/dL Urine WBC (Auto) (0.0-6.0) /HPF 07/23/20 07/23/20 07/23/20 Range/Units 11:18 13:34 14:17 WBC (4.5-11.0) K/mm3 RBC (3.65-5.03) M/mm3 Hgb (11.8-15.2) gm/dl Hct (35.5-45.6) % Plt Count (140-440) K/mm3 Seg Neuts % (Manual) (40.0-70.0) % Lymphocytes % (Manual) (13.4-35.0) % Seg Neutrophils # Man (1.8-7.7) K/mm3 Lymphocytes # (Manual) (1.2-5.4) K/mm3 ABG pH (7.350-7.450) pH Units ABG Hemoglobin (14.0-18.0) gm/dl VBG pH (7.320-7.420) Oxyhemoglobin (95.0-99.0) % Sodium (137-145) mmol/L Potassium (3.6-5.0) mmol/L Chloride (98-107) mmol/L Carbon Dioxide (22-30) mmol/L BUN (9-20) mg/dL Creatinine (0.8-1.3) mg/dL Glucose (75-100) mg/dL POC Glucose 267 H 221 H 167 H (70-105) Hemoglobin A1c (4-6) % Calcium (8.4-10.2) mg/dL Phosphorus (2.5-4.5) mg/dL Magnesium (1.7-2.3) mg/dL AST (5-40) units/L Total Creatine Kinase (55-170) units/L Total Protein (6.3-8.2) g/dL Urine WBC (Auto) (0.0-6.0) /HPF 07/23/20 07/23/20 Range/Units 15:08 15:15 WBC (4.5-11.0) K/mm3 RBC (3.65-5.03) M/mm3 Hgb (11.8-15.2) gm/dl Hct (35.5-45.6) % Plt Count (140-440) K/mm3 Seg Neuts % (Manual) (40.0-70.0) % Lymphocytes % (Manual) (13.4-35.0) % Seg Neutrophils # Man (1.8-7.7) K/mm3 Lymphocytes # (Manual) (1.2-5.4) K/mm3 ABG pH 7.451 H (7.350-7.450) pH Units ABG Hemoglobin 18.8 H (14.0-18.0) gm/dl VBG pH (7.320-7.420) Oxyhemoglobin 94.5 L (95.0-99.0) % Sodium (137-145) mmol/L Potassium (3.6-5.0) mmol/L Chloride (98-107) mmol/L Carbon Dioxide (22-30) mmol/L BUN (9-20) mg/dL Creatinine (0.8-1.3) mg/dL Glucose (75-100) mg/dL POC Glucose 148 H (70-105) Hemoglobin A1c (4-6) % Calcium (8.4-10.2) mg/dL Phosphorus (2.5-4.5) mg/dL Magnesium (1.7-2.3) mg/dL AST (5-40) units/L Total Creatine Kinase (55-170) units/L Total Protein (6.3-8.2) g/dL Urine WBC (Auto) (0.0-6.0) /HPF HEART Score - HEART Score Troponin: Troponin T 0.015 ng/mL (0.00-0.029) 07/22/20 21:21
[2020-07-23] MEDS: cefTRIAXone/NS 2 GM/100 ML 2 GM/100 ML BAG IV SCH (17:55)
[2020-07-23 18:33] LABS: BUN/Creatinine Ratio 27; Blood Urea Nitrogen 32 mg/dL (9-20); Calcium 9.8 mg/dL (8.4-10.2); Hemolysis Index 126
[2020-07-23] MEDS ORDERED: cefTRIAXone/NS 1 GM/50 ML 1 GM/50 ML BAG IV SCH (22:00)
[2020-07-23 23:51] LABS: BUN/Creatinine Ratio 25; Blood Urea Nitrogen 32 mg/dL (9-20); Calcium 9.5 mg/dL (8.4-10.2); Hemolysis Index 209
[2020-07-24] MEDS ORDERED: SODIUM POLYSTYRENE 15 GM/60 ML ORAL LIQD PO ONE (00:20)
[2020-07-24] MEDS: DEXTROSE 5% IN WATER 1,000 ML IV SCH ×4 (00:45→22:27)
[2020-07-24] MEDS: INSULIN REGULAR, HUMAN 100 UNITS in SODIUM CHLORIDE 0.9% 99 ML IV SCH ×2 (00:46→11:17)
[2020-07-24 01:33] LABS: BUN/Creatinine Ratio 22; Blood Urea Nitrogen 31 mg/dL (9-20); Calcium 9.6 mg/dL (8.4-10.2); Hemolysis Index 20
[2020-07-24] MEDS ORDERED: MORPHINE 2 MG/1 ML INJ IV ONE (05:10)
[2020-07-24] MEDS: HEPARIN 5,000 UNIT/1 ML VIAL SUB-Q SCH ×3 (05:13→22:27)
[2020-07-24 05:24] LABS: Basophils # (Auto) 0.2 K/mm3 (0.0-0.1); Basophils % (Auto) 1.2 % (0.0-1.8); Hematocrit 54.2 % (35.5-45.6); Hemoglobin 18.5 gm/dl (11.8-15.2); Lymphocytes # (Auto) 0.9 K/mm3 (1.2-5.4); Lymphocytes % (Auto) 6.7 % (13.4-35.0); Mean Corpuscular HGB Conc 34 % (32-34); Mean Corpuscular Volume 85 fl (84-94); Monocytes # (Auto) 0.7 K/mm3 (0.0-0.8); Monocytes % (Auto) 5.1 % (0.0-7.3); Platelet Count 147 K/mm3 (140-440); Red Cell Distribution Width 13.6 % (13.2-15.2)
[2020-07-24 05:32] LABS: INR 1.17 (0.87-1.13)
[2020-07-24 05:35] LABS: BUN/Creatinine Ratio 22; Blood Urea Nitrogen 29 mg/dL (9-20); Calcium 9.6 mg/dL (8.4-10.2); Hemolysis Index 15
[2020-07-24] MEDS: D5W/0.2% NACL 1,000 ML IV SCH ×2 (06:43→11:17)
[2020-07-24 07:59] LABS: BUN/Creatinine Ratio 23; Blood Urea Nitrogen 27 mg/dL (9-20); Calcium 9.4 mg/dL (8.4-10.2); Hemolysis Index 78
--- NOTE | 2020-07-24 08:39 | Consultation ---
History of Present Illness - Reason for Consult Consult date: 07/24/20 hypernatremia - History of Present Illness The patient is a 39 YO AAM with no significant medical history who presented to [facility] ED 07/24 with complain of weakness and lethargy. Patient was not quite coherent and not a good historian during my examination. Family called EMS and was subsequently brought to the emergency room. Patient states that he has just been tired and no energy. He has had increased urination for about 2 weeks and has also had nocturia for about 2 weeks. He has had increased thirst and hunger. Work-up in the emergency room revealed DKA, SHANICE, Hypernatremia and hyperkalemia. Nephrology was consulted for further evaluation. Past History Past Medical History: No medical history Past Surgical History: No surgical history Social history: no significant social history Family history: no significant family history Medications and Allergies Allergies Allergy/AdvReac Type Severity Reaction Status Date / Time No Known Allergies Allergy Unverified 07/22/20 22:27 Home Medications Medication Instructions Recorded Confirmed Last Taken Type Amoxicillin CAP 125 mg PO BID 07/23/20 07/23/20 07/22/20 History 125 mg Active Meds: Active Medications Dextrose (D50w (25gm) Syringe) 50 ml IV Q30MIN PRN; Protocol PRN Reason: Hypoglycemia Heparin Sodium (Porcine) (Heparin) 5,000 unit SUB-Q Q8HR [facility] Last Admin: 07/24/20 05:13 Dose: 5,000 unit Documented by: Insulin Human Regular 100 (units/ Sodium Chloride) 100 mls @ 1 mls/hr IV TITR [facility]; Protocol Last Titration: 07/24/20 08:15 Dose: 7 units/hr, 7 mls/hr Documented by: Ceftriaxone Sodium (Rocephin/Ns 2 Gm/100 Ml) 2 gm in 100 mls @ 200 mls/hr IV Q24HR [facility] Last Admin: 07/23/20 17:55 Dose: 200 mls/hr Documented by: Dextrose/Sodium Chloride (D5ns 0.2%) 1,000 mls @ 250 mls/hr IV DIRECT [facility] Last Admin: 07/24/20 06:43 Dose: 250 mls/hr Documented by: Sodium Chloride (Sodium Chloride Flush Syringe 10 Ml) 10 ml IV BID [facility] Last Admin: 07/23/20 20:30 Dose: 10 ml Documented by: Sodium Chloride (Sodium Chloride Flush Syringe 10 Ml) 10 ml IV PRN PRN PRN Reason: LINE FLUSH Review of Systems ROS unobtainable: due to mental status Exam - Vital Signs Vital signs: Vital Signs Temp Pulse Resp BP Pulse Ox 98.4 F 125 H 22 136/100 95 07/22/20 21:26 07/22/20 21:26 07/22/20 21:26 07/22/20 21:26 07/22/20 21:26 Results - Lab Results 07/24/20 04:43 07/24/20 07:28 Most recent lab results ABG pH 7.451 pH Units (7.350-7.450) H 07/23/20 15:15 ABG pCO2 36.5 mm Hg 07/23/20 15:15 ABG pO2 84.1 mm Hg (80.0-90.0) 07/23/20 15:15 ABG HCO3 24.9 mmol/L (20.0-26.0) 07/23/20 15:15 ABG O2 Saturation 96.8 % (95.0-99.0) 07/23/20 15:15 Calcium 9.4 mg/dL (8.4-10.2) 07/24/20 07:28 Phosphorus 4.50 mg/dL (2.5-4.5) D 07/23/20 02:26 Magnesium 3.90 mg/dL (1.7-2.3) H 07/23/20 02:26 Assessment and Plan 1. Acute kidney injury: Charmaineley vasomotor SHANICE in the setting of volume depletion and DKA. CT abdomen was negative for hydronephrosis. Continue IV fluids. Renal function has improved. Monitor renal function. Avoid nephrotoxic agents. Meds dosage based on GFR. 2. Hypernatremia: Secondary to dehydration. Currently on D5 1/4NS. Sodium level is improving. Encouraged PO fluids. Monitor levels. 3. FEN: Hyperkalemia, improved. Metabolic acidosis, improved. Monitor lytes and volume status. 4. DKA: On Insulin drip. Monitor glucose levels. 5. Acute metabolic encephalopathy, POA: Improved. - Subjective: Patient was seen and examined at the bedside. - General Appearance General appearance: well-developed, appears stated age, not in distress HEENT: ATNC, pupils appears equal Neck: Trachea midline Respiratory: ctab Cardiology: regular, S1S2, tachycardia, no murmur Gastrointestinal: soft, not tender, not distended Integumentary: no obvious rash Neurologic: non-focal, slight confusion Ext: no edema noted
[2020-07-24] MEDS: cefTRIAXone/NS 2 GM/100 ML 2 GM/100 ML BAG IV SCH (09:22)
[2020-07-24 13:12] LABS: BUN/Creatinine Ratio 19; Blood Urea Nitrogen 25 mg/dL (9-20); Calcium 9.5 mg/dL (8.4-10.2); Hemolysis Index 17
--- NOTE | 2020-07-24 14:53 | Progress Note ---
Assessment and Plan --DKA (diabetic ketoacidoses) Patient started on IV fluid and insulin drip. We will monitor blood glucose according to protocol. --Acute metabolic encephalopathy Likely from DKA and hyponatremia Continue to monitor clinically with frequent neuro exam --hypernatremia Continue hypotonic fluid, monitor BMP consulted nephrology -- Hyperkalemia Patient has been given IV fluid, calcium chloride and Kayexalate. Will monitor potassium levels. --SHANICE, likely vasomotor nephropathy cont iv fluid and monitor BMP -- DVT prophylaxis patient on subcutaneous heparin. -- Full code status 07/23: Na 166 today, change iv fluid to d5w, monitor BMP, cont insulin drip. 07/24: Na level still 164- 165 today, cont hypotonic saline. called and updated Subjective Date of service: 07/24/20 Interval history: Patient seen and examined. Medical records and medication list reviewed. No acute event overnight noted by the RN. Patient denies any chest pain or difficulty breathing. Patient states that he wants to eat, patient remains confused and lethargic Discussed plan of care at bedside with patient's RN. Objective - Exam Narrative Exam: GENERAL: well-developed and well-nourished lying on bed appeared to be in no discomfort. HEENT: Normocephalic. Atraumatic. No conjunctival congestion or icterus. Patient has moist mucous membranes. NECK: Supple. Trachea midline. CHEST/LUNGS: Clear to auscultated bilaterally, breathing nonlabored. No wheezes crackles or rhonchi. HEART/CARDIOVASCULAR: Regular in rate and rhythm. S1 and S2 positive. ABDOMEN: Abdomen is soft, nontender. Patient has normal bowel sounds. SKIN: There is no rash. Warm and dry. NEURO: No focal motor deficit. Follows command. Patient appears to be slightly confused and lethargic MUSCULOSKELETAL: No joint effusion or tenderness. EXTRIMITY: No edema, no cyanosis or clubbing. PSYCH: Cooperative. - Constitutional Vitals: Vital Signs - 12hr 07/24/20 07/24/20 07/24/20 03:00 03:10 03:13 Temperature 97.8 F Pulse Rate 128 H 126 H Pulse Rate [ From Monitor] Respiratory 15 13 Rate Blood Pressure 126/94 126/94 O2 Sat by Pulse 100 100 Oximetry 07/24/20 07/24/20 07/24/20 03:16 03:20 03:30 Temperature Pulse Rate 126 H 122 H 123 H Pulse Rate [ 122 H From Monitor] Respiratory 20 12 19 Rate Blood Pressure 126/94 124/96 O2 Sat by Pulse 100 100 100 Oximetry 07/24/20 07/24/20 07/24/20 03:40 03:50 04:00 Temperature Pulse Rate 128 H 128 H 126 H Pulse Rate [ From Monitor] Respiratory 14 17 27 H Rate Blood Pressure 124/96 126/94 134/94 O2 Sat by Pulse 100 100 100 Oximetry 07/24/20 07/24/20 07/24/20 04:10 04:20 04:30 Temperature Pulse Rate 128 H 126 H 124 H Pulse Rate [ From Monitor] Respiratory 16 15 19 Rate Blood Pressure 134/94 134/94 134/94 O2 Sat by Pulse 100 99 99 Oximetry 07/24/20 07/24/20 07/24/20 04:40 04:50 05:00 Temperature Pulse Rate 132 H 131 H 131 H Pulse Rate [ From Monitor] Respiratory 20 23 16 Rate Blood Pressure 104/84 134/94 134/94 O2 Sat by Pulse 100 100 100 Oximetry 07/24/20 07/24/20 07/24/20 05:07 05:10 05:15 Temperature Pulse Rate 126 H 123 H Pulse Rate [ 122 H From Monitor] Respiratory 16 14 20 Rate Blood Pressure 134/94 O2 Sat by Pulse 100 100 Oximetry 07/24/20 07/24/20 07/24/20 05:20 05:30 05:37 Temperature Pulse Rate 123 H 120 H Pulse Rate [ From Monitor] Respiratory 16 20 20 Rate Blood Pressure 116/83 123/87 O2 Sat by Pulse 99 100 Oximetry 07/24/20 07/24/20 07/24/20 05:40 05:50 06:00 Temperature Pulse Rate 120 H 121 H 118 H Pulse Rate [ From Monitor] Respiratory 18 29 H 23 Rate Blood Pressure 123/87 123/87 110/89 O2 Sat by Pulse 100 100 100 Oximetry 07/24/20 07/24/20 07/24/20 06:10 06:20 06:30 Temperature Pulse Rate 119 H 117 H 121 H Pulse Rate [ From Monitor] Respiratory 33 H 27 H 15 Rate Blood Pressure 110/89 110/89 128/98 O2 Sat by Pulse 99 99 100 Oximetry 07/24/20 07/24/20 07/24/20 06:40 06:50 07:00 Temperature Pulse Rate 121 H 118 H 117 H Pulse Rate [ From Monitor] Respiratory 18 27 H 22 Rate Blood Pressure 128/98 128/98 131/100 O2 Sat by Pulse 100 100 100 Oximetry 07/24/20 07/24/20 07/24/20 07:10 07:20 07:30 Temperature Pulse Rate 116 H 120 H 129 H Pulse Rate [ From Monitor] Respiratory 25 H 25 H 33 H Rate Blood Pressure 131/100 131/100 141/95 O2 Sat by Pulse 100 100 100 Oximetry 07/24/20 07/24/20 07/24/20 07:40 07:50 08:00 Temperature 98.4 F Pulse Rate 115 H 118 H 117 H Pulse Rate [ 120 H From Monitor] Respiratory 28 H 21 25 H Rate Blood Pressure 141/95 141/95 132/98 O2 Sat by Pulse 100 100 100 Oximetry 07/24/20 07/24/20 07/24/20 08:10 08:20 08:30 Temperature Pulse Rate 120 H 128 H 122 H Pulse Rate [ From Monitor] Respiratory 19 18 14 Rate Blood Pressure 132/98 132/98 133/97 O2 Sat by Pulse 100 100 99 Oximetry 07/24/20 07/24/20 07/24/20 08:40 08:50 09:00 Temperature Pulse Rate 125 H 123 H 130 H Pulse Rate [ From Monitor] Respiratory 22 19 23 Rate Blood Pressure 133/97 133/97 124/87 O2 Sat by Pulse 100 100 99 Oximetry 07/24/20 07/24/20 07/24/20 09:10 09:20 09:30 Temperature Pulse Rate 126 H 113 H 114 H Pulse Rate [ From Monitor] Respiratory 27 H 24 14 Rate Blood Pressure 124/87 124/87 112/85 O2 Sat by Pulse 100 100 100 Oximetry 07/24/20 07/24/20 07/24/20 09:40 09:50 10:00 Temperature Pulse Rate 112 H 111 H 115 H Pulse Rate [ From Monitor] Respiratory 27 H 22 22 Rate Blood Pressure 112/85 112/85 128/92 O2 Sat by Pulse 100 100 100 Oximetry 07/24/20 07/24/20 07/24/20 10:10 10:20 10:30 Temperature Pulse Rate 112 H 117 H 113 H Pulse Rate [ From Monitor] Respiratory 27 H 24 23 Rate Blood Pressure 128/92 128/92 129/93 O2 Sat by Pulse 100 100 100 Oximetry 07/24/20 07/24/20 07/24/20 10:40 10:50 11:00 Temperature Pulse Rate 115 H 118 H 113 H Pulse Rate [ From Monitor] Respiratory 23 11 L 15 Rate Blood Pressure 129/93 129/93 128/92 O2 Sat by Pulse 100 100 100 Oximetry 07/24/20 07/24/20 07/24/20 11:10 11:20 11:30 Temperature Pulse Rate 115 H 120 H 112 H Pulse Rate [ From Monitor] Respiratory 18 11 L 14 Rate Blood Pressure 122/88 122/88 120/96 O2 Sat by Pulse 100 100 100 Oximetry 07/24/20 07/24/20 07/24/20 11:40 11:50 12:00 Temperature 98.2 F Pulse Rate 105 H 110 H 111 H Pulse Rate [ 111 H From Monitor] Respiratory 24 21 22 Rate Blood Pressure 120/96 120/96 123/87 O2 Sat by Pulse 99 100 99 Oximetry 07/24/20 07/24/20 07/24/20 12:10 12:20 12:30 Temperature Pulse Rate 113 H 109 H 113 H Pulse Rate [ From Monitor] Respiratory 28 H 23 20 Rate Blood Pressure 123/87 123/87 115/86 O2 Sat by Pulse 100 99 100 Oximetry 07/24/20 07/24/20 07/24/20 12:40 12:50 13:00 Temperature Pulse Rate 109 H 109 H 114 H Pulse Rate [ From Monitor] Respiratory 23 24 27 H Rate Blood Pressure 115/86 115/86 113/87 O2 Sat by Pulse 100 100 94 Oximetry 07/24/20 07/24/20 07/24/20 13:10 13:20 13:30 Temperature Pulse Rate 103 H 98 H 98 H Pulse Rate [ From Monitor] Respiratory 18 23 10 L Rate Blood Pressure 113/87 113/87 120/83 O2 Sat by Pulse 100 99 98 Oximetry 07/24/20 07/24/20 07/24/20 13:40 13:50 14:00 Temperature Pulse Rate 109 H 110 H 107 H Pulse Rate [ From Monitor] Respiratory 17 15 9 L Rate Blood Pressure 120/83 120/83 125/96 O2 Sat by Pulse 98 99 100 Oximetry 07/24/20 07/24/20 07/24/20 14:10 14:20 14:30 Temperature Pulse Rate 108 H 99 H 105 H Pulse Rate [ From Monitor] Respiratory 13 28 H 20 Rate Blood Pressure 125/96 125/96 134/88 O2 Sat by Pulse 100 100 100 Oximetry - Labs CBC & Chem 7: 07/24/20 04:43 07/25/20 05:48 Labs: Abnormal lab results 07/23/20 07/23/20 07/23/20 Range/Units 09:16 13:34 14:17 WBC (4.5-11.0) K/mm3 RBC (3.65-5.03) M/mm3 Hgb (11.8-15.2) gm/dl Hct (35.5-45.6) % Lymph % (Auto) (13.4-35.0) % Lymph # (1.2-5.4) K/mm3 Baso # (0.0-0.1) K/mm3 Seg Neutrophils % (40.0-70.0) % Seg Neutrophils # (1.8-7.7) K/mm3 PT (12.2-14.9) Sec. INR (0.87-1.13) ABG pH (7.350-7.450) pH Units ABG Hemoglobin (14.0-18.0) gm/dl Oxyhemoglobin (95.0-99.0) % Sodium (137-145) mmol/L Potassium (3.6-5.0) mmol/L Chloride (98-107) mmol/L Carbon Dioxide (22-30) mmol/L BUN (9-20) mg/dL Creatinine (0.8-1.3) mg/dL Glucose (75-100) mg/dL POC Glucose 258 H 221 H 167 H (70-105) 07/23/20 07/23/20 07/23/20 Range/Units 14:40 15:08 15:15 WBC (4.5-11.0) K/mm3 RBC (3.65-5.03) M/mm3 Hgb (11.8-15.2) gm/dl Hct (35.5-45.6) % Lymph % (Auto) (13.4-35.0) % Lymph # (1.2-5.4) K/mm3 Baso # (0.0-0.1) K/mm3 Seg Neutrophils % (40.0-70.0) % Seg Neutrophils # (1.8-7.7) K/mm3 PT (12.2-14.9) Sec. INR (0.87-1.13) ABG pH 7.451 H (7.350-7.450) pH Units ABG Hemoglobin 18.8 H (14.0-18.0) gm/dl Oxyhemoglobin 94.5 L (95.0-99.0) % Sodium 165 H* (137-145) mmol/L Potassium (3.6-5.0) mmol/L Chloride 131.2 H (98-107) mmol/L Carbon Dioxide 21 L (22-30) mmol/L BUN 32 H (9-20) mg/dL Creatinine (0.8-1.3) mg/dL Glucose 133 H (75-100) mg/dL POC Glucose 148 H (70-105) 07/23/20 07/23/20 07/23/20 Range/Units 20:14 21:09 22:22 WBC (4.5-11.0) K/mm3 RBC (3.65-5.03) M/mm3 Hgb (11.8-15.2) gm/dl Hct (35.5-45.6) % Lymph % (Auto) (13.4-35.0) % Lymph # (1.2-5.4) K/mm3 Baso # (0.0-0.1) K/mm3 Seg Neutrophils % (40.0-70.0) % Seg Neutrophils # (1.8-7.7) K/mm3 PT (12.2-14.9) Sec. INR (0.87-1.13) ABG pH (7.350-7.450) pH Units ABG Hemoglobin (14.0-18.0) gm/dl Oxyhemoglobin (95.0-99.0) % Sodium (137-145) mmol/L Potassium (3.6-5.0) mmol/L Chloride (98-107) mmol/L Carbon Dioxide (22-30) mmol/L BUN (9-20) mg/dL Creatinine (0.8-1.3) mg/dL Glucose (75-100) mg/dL POC Glucose 159 H 154 H 145 H (70-105) 07/23/20 07/23/20 07/24/20 Range/Units 23:04 23:35 00:16 WBC (4.5-11.0) K/mm3 RBC (3.65-5.03) M/mm3 Hgb (11.8-15.2) gm/dl Hct (35.5-45.6) % Lymph % (Auto) (13.4-35.0) % Lymph # (1.2-5.4) K/mm3 Baso # (0.0-0.1) K/mm3 Seg Neutrophils % (40.0-70.0) % Seg Neutrophils # (1.8-7.7) K/mm3 PT (12.2-14.9) Sec. INR (0.87-1.13) ABG pH (7.350-7.450) pH Units ABG Hemoglobin (14.0-18.0) gm/dl Oxyhemoglobin (95.0-99.0) % Sodium 163 H* (137-145) mmol/L Potassium 5.6 H (3.6-5.0) mmol/L Chloride 129.2 H (98-107) mmol/L Carbon Dioxide 21 L (22-30) mmol/L BUN 32 H (9-20) mg/dL Creatinine (0.8-1.3) mg/dL Glucose 175 H (75-100) mg/dL POC Glucose 176 H 157 H (70-105) 07/24/20 07/24/20 07/24/20 Range/Units 00:55 01:02 01:57 WBC (4.5-11.0) K/mm3 RBC (3.65-5.03) M/mm3 Hgb (11.8-15.2) gm/dl Hct (35.5-45.6) % Lymph % (Auto) (13.4-35.0) % Lymph # (1.2-5.4) K/mm3 Baso # (0.0-0.1) K/mm3 Seg Neutrophils % (40.0-70.0) % Seg Neutrophils # (1.8-7.7) K/mm3 PT (12.2-14.9) Sec. INR (0.87-1.13) ABG pH (7.350-7.450) pH Units ABG Hemoglobin (14.0-18.0) gm/dl Oxyhemoglobin (95.0-99.0) % Sodium 166 H* (137-145) mmol/L Potassium (3.6-5.0) mmol/L Chloride 128.6 H (98-107) mmol/L Carbon Dioxide (22-30) mmol/L BUN 31 H (9-20) mg/dL Creatinine 1.4 H (0.8-1.3) mg/dL Glucose 216 H (75-100) mg/dL POC Glucose 207 H 235 H (70-105) 07/24/20 07/24/20 07/24/20 Range/Units 03:03 04:18 04:43 WBC 13.0 H (4.5-11.0) K/mm3 RBC 6.40 H (3.65-5.03) M/mm3 Hgb 18.5 H (11.8-15.2) gm/dl Hct 54.2 H (35.5-45.6) % Lymph % (Auto) 6.7 L (13.4-35.0) % Lymph # 0.9 L (1.2-5.4) K/mm3 Baso # 0.2 H (0.0-0.1) K/mm3 Seg Neutrophils % 87.0 H (40.0-70.0) % Seg Neutrophils # 11.3 H (1.8-7.7) K/mm3 PT (12.2-14.9) Sec. INR (0.87-1.13) ABG pH (7.350-7.450) pH Units ABG Hemoglobin (14.0-18.0) gm/dl Oxyhemoglobin (95.0-99.0) % Sodium (137-145) mmol/L Potassium (3.6-5.0) mmol/L Chloride (98-107) mmol/L Carbon Dioxide (22-30) mmol/L BUN (9-20) mg/dL Creatinine (0.8-1.3) mg/dL Glucose (75-100) mg/dL POC Glucose 174 H 149 H (70-105) 07/24/20 07/24/20 07/24/20 Range/Units 04:43 04:43 05:23 WBC (4.5-11.0) K/mm3 RBC (3.65-5.03) M/mm3 Hgb (11.8-15.2) gm/dl Hct (35.5-45.6) % Lymph % (Auto) (13.4-35.0) % Lymph # (1.2-5.4) K/mm3 Baso # (0.0-0.1) K/mm3 Seg Neutrophils % (40.0-70.0) % Seg Neutrophils # (1.8-7.7) K/mm3 PT 15.2 H (12.2-14.9) Sec. INR 1.17 H (0.87-1.13) ABG pH (7.350-7.450) pH Units ABG Hemoglobin (14.0-18.0) gm/dl Oxyhemoglobin (95.0-99.0) % Sodium 167 H* (137-145) mmol/L Potassium (3.6-5.0) mmol/L Chloride 127.0 H (98-107) mmol/L Carbon Dioxide (22-30) mmol/L BUN 29 H (9-20) mg/dL Creatinine (0.8-1.3) mg/dL Glucose 149 H (75-100) mg/dL POC Glucose 125 H (70-105) 07/24/20 07/24/20 07/24/20 Range/Units 06:25 07:28 07:30 WBC (4.5-11.0) K/mm3 RBC (3.65-5.03) M/mm3 Hgb (11.8-15.2) gm/dl Hct (35.5-45.6) % Lymph % (Auto) (13.4-35.0) % Lymph # (1.2-5.4) K/mm3 Baso # (0.0-0.1) K/mm3 Seg Neutrophils % (40.0-70.0) % Seg Neutrophils # (1.8-7.7) K/mm3 PT (12.2-14.9) Sec. INR (0.87-1.13) ABG pH (7.350-7.450) pH Units ABG Hemoglobin (14.0-18.0) gm/dl Oxyhemoglobin (95.0-99.0) % Sodium 164 H* (137-145) mmol/L Potassium (3.6-5.0) mmol/L Chloride 126.0 H (98-107) mmol/L Carbon Dioxide (22-30) mmol/L BUN 27 H (9-20) mg/dL Creatinine (0.8-1.3) mg/dL Glucose 167 H (75-100) mg/dL POC Glucose 140 H 140 H (70-105) 07/24/20 07/24/20 07/24/20 Range/Units 08:29 09:33 10:12 WBC (4.5-11.0) K/mm3 RBC (3.65-5.03) M/mm3 Hgb (11.8-15.2) gm/dl Hct (35.5-45.6) % Lymph % (Auto) (13.4-35.0) % Lymph # (1.2-5.4) K/mm3 Baso # (0.0-0.1) K/mm3 Seg Neutrophils % (40.0-70.0) % Seg Neutrophils # (1.8-7.7) K/mm3 PT (12.2-14.9) Sec. INR (0.87-1.13) ABG pH (7.350-7.450) pH Units ABG Hemoglobin (14.0-18.0) gm/dl Oxyhemoglobin (95.0-99.0) % Sodium (137-145) mmol/L Potassium (3.6-5.0) mmol/L Chloride (98-107) mmol/L Carbon Dioxide (22-30) mmol/L BUN (9-20) mg/dL Creatinine (0.8-1.3) mg/dL Glucose (75-100) mg/dL POC Glucose 146 H 161 H 151 H (70-105) 07/24/20 07/24/20 07/24/20 Range/Units 11:20 12:12 13:13 WBC (4.5-11.0) K/mm3 RBC (3.65-5.03) M/mm3 Hgb (11.8-15.2) gm/dl Hct (35.5-45.6) % Lymph % (Auto) (13.4-35.0) % Lymph # (1.2-5.4) K/mm3 Baso # (0.0-0.1) K/mm3 Seg Neutrophils % (40.0-70.0) % Seg Neutrophils # (1.8-7.7) K/mm3 PT (12.2-14.9) Sec. INR (0.87-1.13) ABG pH (7.350-7.450) pH Units ABG Hemoglobin (14.0-18.0) gm/dl Oxyhemoglobin (95.0-99.0) % Sodium 165 H* (137-145) mmol/L Potassium (3.6-5.0) mmol/L Chloride 124.4 H (98-107) mmol/L Carbon Dioxide (22-30) mmol/L BUN 25 H (9-20) mg/dL Creatinine (0.8-1.3) mg/dL Glucose 107 H (75-100) mg/dL POC Glucose 131 H 126 H (70-105) 07/24/20 Range/Units 14:15 WBC (4.5-11.0) K/mm3 RBC (3.65-5.03) M/mm3 Hgb (11.8-15.2) gm/dl Hct (35.5-45.6) % Lymph % (Auto) (13.4-35.0) % Lymph # (1.2-5.4) K/mm3 Baso # (0.0-0.1) K/mm3 Seg Neutrophils % (40.0-70.0) % Seg Neutrophils # (1.8-7.7) K/mm3 PT (12.2-14.9) Sec. INR (0.87-1.13) ABG pH (7.350-7.450) pH Units ABG Hemoglobin (14.0-18.0) gm/dl Oxyhemoglobin (95.0-99.0) % Sodium (137-145) mmol/L Potassium (3.6-5.0) mmol/L Chloride (98-107) mmol/L Carbon Dioxide (22-30) mmol/L BUN (9-20) mg/dL Creatinine (0.8-1.3) mg/dL Glucose (75-100) mg/dL POC Glucose 143 H (70-105) HEART Score - HEART Score Troponin: Troponin T 0.015 ng/mL (0.00-0.029) 07/22/20 21:21
[2020-07-24] MEDS ORDERED: D5W/0.9% NACL 1,000 ML IV SCH (15:00)
--- NOTE | 2020-07-24 15:27 | XRay Report ---
CHEST 1 VIEW INDICATION / CLINICAL INFORMATION: possible aspiration. COMPARISON: None available. FINDINGS: SUPPORT DEVICES: None. HEART / MEDIASTINUM: No significant abnormality. LUNGS / PLEURA: No significant pulmonary or pleural abnormality. No pneumothorax. ADDITIONAL FINDINGS: No significant additional findings. IMPRESSION: No acute cardiopulmonary abnormality. Signer Name: Carlos Aldrich MD Signed: 07/24/2020 3:23 PM Workstation Name: [id number]
--- NOTE | 2020-07-24 16:01 | Progress Note ---
Assessment and Plan DKA Severe Hypervatremia Acute metabolic encephalopathy SHANICE - Lantus 20 units SQ X 1 now (reevaluate in am for daily dose) - stop IV insulin - continue D5W @ 150 mls/hr - SSI high dose scale q4h X 24 hours then reassess - begin consistent carbs diet Subjective Date of service: 07/24/20 Principal diagnosis: DKA; Severe Hypervatremia; Acute metabolic encephalopathy; SHANICE Interval history: Patient is seen today for: DKA; Severe Hypervatremia; Acute metabolic encephalopathy; SHANICE Seen and examined at bedside; 24hour events reviewed; nursing and respiratory care staff consulted; no adverse overnight events reported to me; resting peaceful;ly in bed; much more appropriate; Objective Vital Signs - 12hr 07/24/20 07/24/20 07/24/20 04:00 04:10 04:20 Temperature Pulse Rate 126 H 128 H 126 H Pulse Rate [ From Monitor] Respiratory 27 H 16 15 Rate Blood Pressure 134/94 134/94 134/94 O2 Sat by Pulse 100 100 99 Oximetry 07/24/20 07/24/20 07/24/20 04:30 04:40 04:50 Temperature Pulse Rate 124 H 132 H 131 H Pulse Rate [ From Monitor] Respiratory 19 20 23 Rate Blood Pressure 134/94 104/84 134/94 O2 Sat by Pulse 99 100 100 Oximetry 07/24/20 07/24/20 07/24/20 05:00 05:07 05:10 Temperature Pulse Rate 131 H 126 H Pulse Rate [ From Monitor] Respiratory 16 16 14 Rate Blood Pressure 134/94 134/94 O2 Sat by Pulse 100 100 Oximetry 07/24/20 07/24/20 07/24/20 05:15 05:20 05:30 Temperature Pulse Rate 123 H 123 H 120 H Pulse Rate [ 122 H From Monitor] Respiratory 20 16 20 Rate Blood Pressure 116/83 123/87 O2 Sat by Pulse 100 99 100 Oximetry 07/24/20 07/24/20 07/24/20 05:37 05:40 05:50 Temperature Pulse Rate 120 H 121 H Pulse Rate [ From Monitor] Respiratory 20 18 29 H Rate Blood Pressure 123/87 123/87 O2 Sat by Pulse 100 100 Oximetry 07/24/20 07/24/20 07/24/20 06:00 06:10 06:20 Temperature Pulse Rate 118 H 119 H 117 H Pulse Rate [ From Monitor] Respiratory 23 33 H 27 H Rate Blood Pressure 110/89 110/89 110/89 O2 Sat by Pulse 100 99 99 Oximetry 07/24/20 07/24/20 07/24/20 06:30 06:40 06:50 Temperature Pulse Rate 121 H 121 H 118 H Pulse Rate [ From Monitor] Respiratory 15 18 27 H Rate Blood Pressure 128/98 128/98 128/98 O2 Sat by Pulse 100 100 100 Oximetry 07/24/20 07/24/20 07/24/20 07:00 07:10 07:20 Temperature Pulse Rate 117 H 116 H 120 H Pulse Rate [ From Monitor] Respiratory 22 25 H 25 H Rate Blood Pressure 131/100 131/100 131/100 O2 Sat by Pulse 100 100 100 Oximetry 07/24/20 07/24/20 07/24/20 07:30 07:40 07:50 Temperature Pulse Rate 129 H 115 H 118 H Pulse Rate [ From Monitor] Respiratory 33 H 28 H 21 Rate Blood Pressure 141/95 141/95 141/95 O2 Sat by Pulse 100 100 100 Oximetry 07/24/20 07/24/20 07/24/20 08:00 08:10 08:20 Temperature 98.4 F Pulse Rate 117 H 120 H 128 H Pulse Rate [ 120 H From Monitor] Respiratory 25 H 19 18 Rate Blood Pressure 132/98 132/98 132/98 O2 Sat by Pulse 100 100 100 Oximetry 07/24/20 07/24/20 07/24/20 08:30 08:40 08:50 Temperature Pulse Rate 122 H 125 H 123 H Pulse Rate [ From Monitor] Respiratory 14 22 19 Rate Blood Pressure 133/97 133/97 133/97 O2 Sat by Pulse 99 100 100 Oximetry 07/24/20 07/24/20 07/24/20 09:00 09:10 09:20 Temperature Pulse Rate 130 H 126 H 113 H Pulse Rate [ From Monitor] Respiratory 23 27 H 24 Rate Blood Pressure 124/87 124/87 124/87 O2 Sat by Pulse 99 100 100 Oximetry 07/24/20 07/24/20 07/24/20 09:30 09:40 09:50 Temperature Pulse Rate 114 H 112 H 111 H Pulse Rate [ From Monitor] Respiratory 14 27 H 22 Rate Blood Pressure 112/85 112/85 112/85 O2 Sat by Pulse 100 100 100 Oximetry 07/24/20 07/24/2007/24/20 10:00 10:10 10:20 Temperature Pulse Rate 115 H 112 H 117 H Pulse Rate [ From Monitor] Respiratory 22 27 H 24 Rate Blood Pressure 128/92 128/92 128/92 O2 Sat by Pulse 100 100 100 Oximetry 07/24/20 07/24/20 07/24/20 10:30 10:40 10:50 Temperature Pulse Rate 113 H 115 H 118 H Pulse Rate [ From Monitor] Respiratory 23 23 11 L Rate Blood Pressure 129/93 129/93 129/93 O2 Sat by Pulse 100 100 100 Oximetry 07/24/20 07/24/20 07/24/20 11:00 11:10 11:20 Temperature Pulse Rate 113 H 115 H 120 H Pulse Rate [ From Monitor] Respiratory 15 18 11 L Rate Blood Pressure 128/92 122/88 122/88 O2 Sat by Pulse 100 100 100 Oximetry 07/24/20 07/24/20 07/24/20 11:30 11:40 11:50 Temperature Pulse Rate 112 H 105 H 110 H Pulse Rate [ From Monitor] Respiratory 14 24 21 Rate Blood Pressure 120/96 120/96 120/96 O2 Sat by Pulse 100 99 100 Oximetry 07/24/20 07/24/20 07/24/20 12:00 12:10 12:20 Temperature 98.2 F Pulse Rate 111 H 113 H 109 H Pulse Rate [ 111 H From Monitor] Respiratory 22 28 H 23 Rate Blood Pressure 123/87 123/87 123/87 O2 Sat by Pulse 99 100 99 Oximetry 07/24/20 07/24/20 07/24/20 12:30 12:40 12:50 Temperature Pulse Rate 113 H 109 H 109 H Pulse Rate [ From Monitor] Respiratory 20 23 24 Rate Blood Pressure 115/86 115/86 115/86 O2 Sat by Pulse 100 100 100 Oximetry 07/24/20 07/24/20 07/24/20 13:00 13:10 13:20 Temperature Pulse Rate 114 H 103 H 98 H Pulse Rate [ From Monitor] Respiratory 27 H 18 23 Rate Blood Pressure 113/87 113/87 113/87 O2 Sat by Pulse 94 100 99 Oximetry 07/24/20 07/24/20 07/24/20 13:30 13:40 13:50 Temperature Pulse Rate 98 H 109 H 110 H Pulse Rate [ From Monitor] Respiratory 10 L 17 15 Rate Blood Pressure 120/83 120/83 120/83 O2 Sat by Pulse 98 98 99 Oximetry 07/24/20 07/24/20 07/24/20 14:00 14:10 14:20 Temperature Pulse Rate 107 H 108 H 99 H Pulse Rate [ From Monitor] Respiratory 9 L 13 28 H Rate Blood Pressure 125/96 125/96 125/96 O2 Sat by Pulse 100 100 100 Oximetry 07/24/20 14:30 Temperature Pulse Rate 105 H Pulse Rate [ From Monitor] Respiratory 20 Rate Blood Pressure 134/88 O2 Sat by Pulse 100 Oximetry Constitutional: no acute distress, alert, other (young male with normal respiratory effort at rest) Eyes: non-icteric ENT: oropharynx dry Neck: supple, no lymphadenopathy, no JVD Effort: normal Ascultation: Bilateral: clear Percussion: Bilateral: not dull Cardiovascular: regular rate and rhythm Gastrointestinal: normoactive bowel sounds, soft, non-tender, non-distended Integumentary: normal Extremities: no cyanosis, no edema, pulses normal, no ischemia or petechiae Neurologic: normal mental status, non-focal exam, pupils equal and round, motor strength normal and, other (somnolent) CBC and BMP: 07/24/20 04:43 07/24/20 12:12 ABG, PT/INR, D-dimer: ABG ABG pH 7.451 pH Units (7.350-7.450) H 07/23/20 15:15 ABG pCO2 36.5 mm Hg 07/23/20 15:15 ABG pO2 84.1 mm Hg (80.0-90.0) 07/23/20 15:15 ABG O2 Saturation 96.8 % (95.0-99.0) 07/23/20 15:15 PT/INR, D-dimer PT 15.2 Sec. (12.2-14.9) H 07/24/20 04:43 INR 1.17 (0.87-1.13) H 07/24/20 04:43 Abnormal lab findings: Abnormal Labs 07/22/20 07/22/20 07/22/20 21:21 21:21 21:21 WBC 14.9 H RBC 6.80 H Hgb 19.6 H Hct 58.0 H Plt Count 138 L Lymph % (Auto) Lymph # Baso # Seg Neutrophils % Seg Neuts % (Manual) 90.0 H Lymphocytes % (Manual) 5.0 L Seg Neutrophils # Seg Neutrophils # Man 13.4 H Lymphocytes # (Manual) 0.7 L PT INR ABG pH ABG Hemoglobin VBG pH 7.269 L Oxyhemoglobin Sodium 156 H Potassium 5.6 H Chloride Carbon Dioxide 17 L BUN 47 H Creatinine 2.1 H Glucose 740 H* POC Glucose Hemoglobin A1c Calcium Phosphorus Magnesium 4.10 H AST 54 H Total Creatine Kinase 4587 H Total Protein 8.5 H Urine WBC (Auto) 07/22/20 07/22/20 07/22/20 21:31 22:37 22:37 WBC RBC Hgb Hct Plt Count Lymph % (Auto) Lymph # Baso # Seg Neutrophils % Seg Neuts % (Manual) Lymphocytes % (Manual) Seg Neutrophils # Seg Neutrophils # Man Lymphocytes # (Manual) PT INR ABG pH ABG Hemoglobin VBG pH Oxyhemoglobin Sodium 148 H D Potassium 7.2 H* D Chloride 108.5 H Carbon Dioxide 8 L* D BUN 47 H Creatinine 1.8 H Glucose 684 H* POC Glucose Hemoglobin A1c Calcium Phosphorus 6.30 H Magnesium 4.50 H AST Total Creatine Kinase Total Protein Urine WBC (Auto) 10.0 H 07/22/20 07/23/20 07/23/20 22:50 00:14 01:17 WBC RBC Hgb Hct Plt Count Lymph % (Auto) Lymph # Baso # Seg Neutrophils % Seg Neuts % (Manual) Lymphocytes % (Manual) Seg Neutrophils # Seg Neutrophils # Man Lymphocytes # (Manual) PT INR ABG pH ABG Hemoglobin VBG pH Oxyhemoglobin Sodium Potassium Chloride Carbon Dioxide BUN Creatinine Glucose POC Glucose 477 H 465 H > 500 H Hemoglobin A1c Calcium Phosphorus Magnesium AST Total Creatine Kinase Total Protein Urine WBC (Auto) 07/23/20 07/23/20 07/23/20 02:26 02:26 02:26 WBC RBC Hgb Hct Plt Count Lymph % (Auto) Lymph # Baso # Seg Neutrophils % Seg Neuts % (Manual) Lymphocytes % (Manual) Seg Neutrophils # Seg Neutrophils # Man Lymphocytes # (Manual) PT INR ABG pH ABG Hemoglobin VBG pH Oxyhemoglobin Sodium 164 H* D Potassium 5.2 H D Chloride 120.6 H Carbon Dioxide 18 L D BUN 45 H Creatinine 1.5 H Glucose 497 H POC Glucose Hemoglobin A1c 11.7 H Calcium 10.3 H Phosphorus Magnesium 3.90 H AST Total Creatine Kinase Total Protein Urine WBC (Auto) 07/23/20 07/23/20 07/23/20 02:27 03:15 04:31 WBC RBC Hgb Hct Plt Count Lymph % (Auto) Lymph # Baso # Seg Neutrophils % Seg Neuts % (Manual) Lymphocytes % (Manual) Seg Neutrophils # Seg Neutrophils # Man Lymphocytes # (Manual) PT INR ABG pH ABG Hemoglobin VBG pH Oxyhemoglobin Sodium Potassium Chloride Carbon Dioxide BUN Creatinine Glucose POC Glucose 406 H 392 H 369 H Hemoglobin A1c Calcium Phosphorus Magnesium AST Total Creatine Kinase Total Protein Urine WBC (Auto) 07/23/20 07/23/20 07/23/20 05:21 05:34 06:14 WBC RBC Hgb Hct Plt Count Lymph % (Auto) Lymph # Baso # Seg Neutrophils % Seg Neuts % (Manual) Lymphocytes % (Manual) Seg Neutrophils # Seg Neutrophils # Man Lymphocytes # (Manual) PT INR ABG pH ABG Hemoglobin VBG pH Oxyhemoglobin Sodium 166 H* Potassium Chloride 129.4 H Carbon Dioxide BUN 40 H Creatinine 1.4 H Glucose 340 H POC Glucose 280 H 140 H Hemoglobin A1c Calcium Phosphorus Magnesium AST Total Creatine Kinase Total Protein Urine WBC (Auto) 07/23/20 07/23/20 07/23/20 06:37 08:02 09:16 WBC RBC Hgb Hct Plt Count Lymph % (Auto) Lymph # Baso # Seg Neutrophils % Seg Neuts % (Manual) Lymphocytes % (Manual) Seg Neutrophils # Seg Neutrophils # Man Lymphocytes # (Manual) PT INR ABG pH ABG Hemoglobin VBG pH Oxyhemoglobin Sodium Potassium Chloride Carbon Dioxide BUN Creatinine Glucose POC Glucose 290 H 285 H 258 H Hemoglobin A1c Calcium Phosphorus Magnesium AST Total Creatine Kinase Total Protein Urine WBC (Auto) 07/23/20 07/23/20 07/23/20 10:17 11:18 13:34 WBC RBC Hgb Hct Plt Count Lymph % (Auto) Lymph # Baso # Seg Neutrophils % Seg Neuts % (Manual) Lymphocytes % (Manual) Seg Neutrophils # Seg Neutrophils # Man Lymphocytes # (Manual) PT INR ABG pH ABG Hemoglobin VBG pH Oxyhemoglobin Sodium Potassium Chloride Carbon Dioxide BUN Creatinine Glucose POC Glucose 107 H 267 H 221 H Hemoglobin A1c Calcium Phosphorus Magnesium AST Total Creatine Kinase Total Protein Urine WBC (Auto) 07/23/20 07/23/20 07/23/20 14:17 14:40 15:08 WBC RBC Hgb Hct Plt Count Lymph % (Auto) Lymph # Baso # Seg Neutrophils % Seg Neuts % (Manual) Lymphocytes % (Manual) Seg Neutrophils # Seg Neutrophils # Man Lymphocytes # (Manual) PT INR ABG pH ABG Hemoglobin VBG pH Oxyhemoglobin Sodium 165 H* Potassium Chloride 131.2 H Carbon Dioxide 21 L BUN 32 H Creatinine Glucose 133 H POC Glucose 167 H 148 H Hemoglobin A1c Calcium Phosphorus Magnesium AST Total Creatine Kinase Total Protein Urine WBC (Auto) 07/23/20 07/23/20 07/23/20 15:15 20:14 21:09 WBC RBC Hgb Hct Plt Count Lymph % (Auto) Lymph # Baso # Seg Neutrophils % Seg Neuts % (Manual) Lymphocytes % (Manual) Seg Neutrophils # Seg Neutrophils # Man Lymphocytes # (Manual) PT INR ABG pH 7.451 H ABG Hemoglobin 18.8 H VBG pH Oxyhemoglobin 94.5 L Sodium Potassium Chloride Carbon Dioxide BUN Creatinine Glucose POC Glucose 159 H 154 H Hemoglobin A1c Calcium Phosphorus Magnesium AST Total Creatine Kinase Total Protein Urine WBC (Auto) 07/23/20 07/23/20 07/23/20 22:22 23:04 23:35 WBC RBC Hgb Hct Plt Count Lymph % (Auto) Lymph # Baso # Seg Neutrophils % Seg Neuts % (Manual) Lymphocytes % (Manual) Seg Neutrophils # Seg Neutrophils # Man Lymphocytes # (Manual) PT INR ABG pH ABG Hemoglobin VBG pH Oxyhemoglobin Sodium 163 H* Potassium 5.6 H Chloride 129.2 H Carbon Dioxide 21 L BUN 32 H Creatinine Glucose 175 H POC Glucose 145 H 176 H Hemoglobin A1c Calcium Phosphorus Magnesium AST Total Creatine Kinase Total Protein Urine WBC (Auto) 07/24/20 07/24/20 07/24/20 00:16 00:55 01:02 WBC RBC Hgb Hct Plt Count Lymph % (Auto) Lymph # Baso # Seg Neutrophils % Seg Neuts % (Manual) Lymphocytes % (Manual) Seg Neutrophils # Seg Neutrophils # Man Lymphocytes # (Manual) PT INR ABG pH ABG Hemoglobin VBG pH Oxyhemoglobin Sodium 166 H* Potassium Chloride 128.6 H Carbon Dioxide BUN 31 H Creatinine 1.4 H Glucose 216 H POC Glucose 157 H 207 H Hemoglobin A1c Calcium Phosphorus Magnesium AST Total Creatine Kinase Total Protein Urine WBC (Auto) 0907/24/20 07/24/20 01:57 03:03 04:18 WBC RBC Hgb Hct Plt Count Lymph % (Auto) Lymph # Baso # Seg Neutrophils % Seg Neuts % (Manual) Lymphocytes % (Manual) Seg Neutrophils # Seg Neutrophils # Man Lymphocytes # (Manual) PT INR ABG pH ABG Hemoglobin VBG pH Oxyhemoglobin Sodium Potassium Chloride Carbon Dioxide BUN Creatinine Glucose POC Glucose 235 H 174 H 149 H Hemoglobin A1c Calcium Phosphorus Magnesium AST Total Creatine Kinase Total Protein Urine WBC (Auto) 07/24/20 07/24/20 07/24/20 04:43 04:43 04:43 WBC 13.0 H RBC 6.40 H Hgb 18.5 H Hct 54.2 H Plt Count Lymph % (Auto) 6.7 L Lymph # 0.9 L Baso # 0.2 H Seg Neutrophils % 87.0 H Seg Neuts % (Manual) Lymphocytes % (Manual) Seg Neutrophils # 11.3 H Seg Neutrophils # Man Lymphocytes # (Manual) PT 15.2 H INR 1.17 H ABG pH ABG Hemoglobin VBG pH Oxyhemoglobin Sodium 167 H* Potassium Chloride 127.0 H Carbon Dioxide BUN 29 H Creatinine Glucose 149 H POC Glucose Hemoglobin A1c Calcium Phosphorus Magnesium AST Total Creatine Kinase Total Protein Urine WBC (Auto) 07/24/20 07/24/20 07/24/20 05:23 06:25 07:28 WBC RBC Hgb Hct Plt Count Lymph % (Auto) Lymph # Baso # Seg Neutrophils % Seg Neuts % (Manual) Lymphocytes % (Manual) Seg Neutrophils # Seg Neutrophils # Man Lymphocytes # (Manual) PT INR ABG pH ABG Hemoglobin VBG pH Oxyhemoglobin Sodium 164 H* Potassium Chloride 126.0 H Carbon Dioxide BUN 27 H Creatinine Glucose 167 H POC Glucose 125 H 140 H Hemoglobin A1c Calcium Phosphorus Magnesium AST Total Creatine Kinase Total Protein Urine WBC (Auto) 07/24/20 07/24/20 07/24/20 07:30 08:29 09:33 WBC RBC Hgb Hct Plt Count Lymph % (Auto) Lymph # Baso # Seg Neutrophils % Seg Neuts % (Manual) Lymphocytes % (Manual) Seg Neutrophils # Seg Neutrophils # Man Lymphocytes # (Manual) PT INR ABG pH ABG Hemoglobin VBG pH Oxyhemoglobin Sodium Potassium Chloride Carbon Dioxide BUN Creatinine Glucose POC Glucose 140 H 146 H 161 H Hemoglobin A1c Calcium Phosphorus Magnesium AST Total Creatine Kinase Total Protein Urine WBC (Auto) 07/24/20 07/24/20 07/24/20 10:12 11:20 12:12 WBC RBC Hgb Hct Plt Count Lymph % (Auto) Lymph # Baso # Seg Neutrophils % Seg Neuts % (Manual) Lymphocytes % (Manual) Seg Neutrophils # Seg Neutrophils # Man Lymphocytes # (Manual) PT INR ABG pH ABG Hemoglobin VBG pH Oxyhemoglobin Sodium 165 H* Potassium Chloride 124.4 H Carbon Dioxide BUN 25 H Creatinine Glucose 107 H POC Glucose 151 H 131 H Hemoglobin A1c Calcium Phosphorus Magnesium AST Total Creatine Kinase Total Protein Urine WBC (Auto) 07/24/20 07/24/20 07/24/20 13:13 14:15 15:26 WBC RBC Hgb Hct Plt Count Lymph % (Auto) Lymph # Baso # Seg Neutrophils % Seg Neuts % (Manual) Lymphocytes % (Manual) Seg Neutrophils # Seg Neutrophils # Man Lymphocytes # (Manual) PT INR ABG pH ABG Hemoglobin VBG pH Oxyhemoglobin Sodium Potassium Chloride Carbon Dioxide BUN Creatinine Glucose POC Glucose 126 H 143 H 144 H Hemoglobin A1c Calcium Phosphorus Magnesium AST Total Creatine Kinase Total Protein Urine WBC (Auto) Chest x-ray: image reviewed (normal) Allied health notes reviewed: nursing
[2020-07-24] MEDS ORDERED: DEXTROSE 50% IN WATER (25GM) 50 ML SYRINGE IV PRN (16:11)
[2020-07-24] MEDS ORDERED: INSULIN GLARGINE 100 UNITS/ML SUB-Q ONE (17:00)
[2020-07-24] MEDS: INSULIN LISPRO 100 UNIT/ML VIAL 3 mL SUB-Q SCH ×2 (17:17→20:47)
[2020-07-24 21:59] LABS: BUN/Creatinine Ratio 19; Blood Urea Nitrogen 21 mg/dL (9-20); Calcium 8.7 mg/dL (8.4-10.2); Hemolysis Index 31
[2020-07-25 02:03] LABS: BUN/Creatinine Ratio 19; Blood Urea Nitrogen 21 mg/dL (9-20); Calcium 8.7 mg/dL (8.4-10.2); Hemolysis Index 31
[2020-07-25] MEDS: INSULIN LISPRO 100 UNIT/ML VIAL 3 mL SUB-Q SCH ×6 (02:25→22:13)
[2020-07-25] MEDS: DEXTROSE 5% IN WATER 1,000 ML IV SCH ×4 (04:38→22:14)
[2020-07-25 06:48] LABS: BUN/Creatinine Ratio 19; Blood Urea Nitrogen 19 mg/dL (9-20); Calcium 8.6 mg/dL (8.4-10.2); Hemolysis Index 233
[2020-07-25] MEDS: HEPARIN 5,000 UNIT/1 ML VIAL SUB-Q SCH ×3 (07:22→22:13)
[2020-07-25] MEDS: FAMOTIDINE 20 MG TAB PO SCH (09:03)
[2020-07-25] MEDS: cefTRIAXone/NS 2 GM/100 ML 2 GM/100 ML BAG IV SCH (09:04)
--- NOTE | 2020-07-25 09:30 | Progress Note ---
Assessment and Plan 1. Acute kidney injury: [place]armaineley vasomotor SHANICE in the setting of volume depletion and DKA. CT abdomen was negative for hydronephrosis. Continue IV fluids. Renal function has improved. Monitor renal function. Avoid nephrotoxic agents. Meds dosage based on GFR. 2. Hypernatremia: Secondary to dehydration. Increase D5W to 200 ml/hr. Sodium level is improving. Encouraged PO fluids. Monitor levels. 3. FEN: Hyperkalemia, improved. Metabolic acidosis, improved. Monitor lytes and volume status. 4. DKA: Monitor glucose levels. 5. Acute metabolic encephalopathy, POA: Monitor. - Subjective: Patient was seen and examined at the bedside. - General Appearance General appearance: well-developed, appears stated age, not in distress HEENT: ATNC, pupils appears equal Neck: Trachea midline Respiratory: ctab Cardiology: regular, S1S2, tachycardia, no murmur Gastrointestinal: soft, not tender, not distended Integumentary: no obvious rash Neurologic: non-focal, slight confusion Ext: no edema noted Subjective Date of service: 07/25/20 Principal diagnosis: DKA; Severe Hypervatremia; Acute metabolic encephalopathy; SHANICE Objective - Vital Signs Vital signs: Vital Signs - 12hr 07/24/20 07/24/20 07/24/20 22:00 23:00 23:54 Temperature 98.9 F Pulse Rate 100 H 103 H Respiratory 25 H 29 H Rate Blood Pressure 129/90 129/90 O2 Sat by Pulse 97 100 Oximetry 07/25/20 07/25/20 07/25/20 00:00 01:00 02:00 Temperature Pulse Rate 109 H 106 H 105 H Respiratory 30 H 21 21 Rate Blood Pressure 129/90 125/85 102/75 O2 Sat by Pulse 100 99 99 Oximetry 07/25/20 07/25/20 07/25/20 03:00 03:43 04:00 Temperature 98.2 F Pulse Rate 104 H 108 H Respiratory 25 H 20 Rate Blood Pressure 123/71 131/81 O2 Sat by Pulse 99 100 Oximetry 07/25/20 07/25/20 07/25/20 05:00 06:00 07:00 Temperature Pulse Rate 105 H 104 H 100 H Respiratory 16 15 15 Rate Blood Pressure 120/85 117/90 126/91 O2 Sat by Pulse 100 100 100 Oximetry 07/25/20 08:00 Temperature 99.0 F Pulse Rate 97 H Respiratory 17 Rate Blood Pressure 126/91 O2 Sat by Pulse 99 Oximetry - Lab 07/24/20 04:43 07/25/20 05:48 Most recent lab results ABG pH 7.451 pH Units (7.350-7.450) H 07/23/20 15:15 ABG pCO2 36.5 mm Hg 07/23/20 15:15 ABG pO2 84.1 mm Hg (80.0-90.0) 07/23/20 15:15 ABG HCO3 24.9 mmol/L (20.0-26.0) 07/23/20 15:15 ABG O2 Saturation 96.8 % (95.0-99.0) 07/23/20 15:15 Calcium 8.6 mg/dL (8.4-10.2) 07/25/20 05:48 Phosphorus 3.00 mg/dL (2.5-4.5) D 07/24/20 12:12 Magnesium 3.90 mg/dL (1.7-2.3) H 07/23/20 02:26 Medications & Allergies - Medications Allergies/Adverse Reactions: Allergies No Known Allergies Allergy (Unverified 07/22/20 22:27) Home Medications: Home Medications Medication Instructions Recorded Confirmed Last Taken Type Amoxicillin CAP 125 mg PO BID 07/23/20 07/23/20 07/22/20 History 125 mg Active Medications: Generic Name Dose Route Start Last Admin Trade Name Freq PRN Reason Stop Dose Admin Dextrose 50 ml 07/24/20 16:11 D50w (25gm) Syringe IV Q30MIN PRN Hypoglycemia Protocol Famotidine 20 mg 07/25/20 10:00 07/25/20 09:03 Pepcid PO 20 mg QDAY BRADFORD Administration Heparin Sodium (Porcine) 5,000 unit 07/23/20 06:00 07/25/20 07:22 Heparin SUB-Q 5,000 unit Q8HR BRADFORD Administration Ceftriaxone Sodium 2 gm in 100 mls @ 200 mls/hr 07/23/20 18:00 07/25/20 09:04 Rocephin/Ns 2 Gm/100 Ml IV 200 mls/hr Q24HR BRADFORD Administration Dextrose 1,000 mls @ 150 mls/hr 07/24/20 16:00 07/25/20 04:38 D5w IV 150 mls/hr DIRECT BRADFORD Administration Insulin Glargine 20 units 07/25/20 10:00 Lantus SUB-Q QAMDIAB BRADFORD Insulin Human Lispro 0 unit 07/24/20 17:00 07/25/20 09:03 Humalog SUB-Q 6 unit Q4H BRADFORD Administration Protocol Sodium Chloride 10 ml 07/23/20 10:00 07/25/20 09:03 Sodium Chloride Flush Syringe 10 Ml IV 10 ml BID BRADFORD Administration Sodium Chloride 10 ml 07/23/20 01:34 Sodium Chloride Flush Syringe 10 Ml IV PRN PRN LINE FLUSH
[2020-07-25] MEDS: INSULIN GLARGINE 100 UNITS/ML SUB-Q SCH (10:15)
--- NOTE | 2020-07-25 11:36 | Progress Note ---
Assessment and Plan -DKA (diabetic ketoacidoses) -Acute metabolic encephalopathy, improving -Hypernatremia -Hyperkalemia, resolved -SHANICE, resolved -Leukocytosis, improving -Continue IVF, D5 Water -Long acting and basal bolus insulin therapy -Serial BMP, fro hypernatremia -Monitor and trend leukocytosis, currently does not appear to have a focus of infection, this is probably hemoconcentration -VTE prophylaxis -Avoid nephrotoxins -Steady carb diet, 1800 kcal -All other care per primary and consulting physicians -Stable for transfer out of the ICU Discussed with the ICU team-RN, CONDITION:FAIR PROGNOSIS: FAIR CODE STATUS: FULL CODE Subjective Date of service: 07/25/20 Principal diagnosis: DKA; Severe Hypernatremia; Acute metabolic encephalopathy; SHANICE Interval history: Follow up for: DKA (diabetic ketoacidoses);Acute metabolic encephalopathy; Hypernatremia;Hyperkalemia;SHANICE, likely vasomotor nephropathy Leukocytosis Seen and examined. No adverse overnight events, off insulin infusion. He has a tray and is about to eat. Nursing staff consulted. Denies any chest pain, no shortness of breath, no nausea or vomiting, no diarrhea. No fevers, feels much better More coherent- states he was Glucovance as an outpatient. Objective Vital Signs - 12hr 07/24/20 07/25/20 07/25/20 23:54 00:00 01:00 Temperature 98.9 F Pulse Rate 109 H 106 H Respiratory 30 H 21 Rate Blood Pressure 129/90 125/85 O2 Sat by Pulse 100 99 Oximetry 07/25/20 07/25/20 07/25/20 02:00 03:00 03:43 Temperature 98.2 F Pulse Rate 105 H 104 H Respiratory 21 25 H Rate Blood Pressure 102/75 123/71 O2 Sat by Pulse 99 99 Oximetry 07/25/20 07/25/20 07/25/20 04:00 05:00 06:00 Temperature Pulse Rate 108 H 105 H 104 H Respiratory 20 16 15 Rate Blood Pressure 131/81 120/85 117/90 O2 Sat by Pulse 100 100 100 Oximetry 07/25/20 07/25/20 07/25/20 07:00 08:00 09:00 Temperature 99.0 F Pulse Rate 100 H 97 H 101 H Respiratory 15 17 19 Rate Blood Pressure 126/91 126/91 136/76 O2 Sat by Pulse 100 99 98 Oximetry 07/25/20 07/25/20 10:00 11:00 Temperature Pulse Rate 102 H 103 H Respiratory 16 25 H Rate Blood Pressure 138/97 137/102 O2 Sat by Pulse 100 100 Oximetry Constitutional: no acute distress, alert Eyes: non-icteric ENT: oropharynx moist Neck: supple, no lymphadenopathy, no JVD Effort: normal Ascultation: Bilateral: clear, diminished breath sounds Percussion: Bilateral: not dull Cardiovascular: regular rate and rhythm, other (S1,S2) Gastrointestinal: normoactive bowel sounds, soft, non-tender, non-distended Integumentary: normal Extremities: no cyanosis, no edema, pink and warm, pulses normal Neurologic: normal mental status, non-focal exam (moves all extemities), pupils equal and round, CN II-XII normal, motor strength normal and Psychiatric: mood appropriate, affect normal CBC and BMP: 07/24/20 04:43 07/25/20 05:48 ABG, PT/INR, D-dimer: ABG ABG pH 7.451 pH Units (7.350-7.450) H 07/23/20 15:15 ABG pCO2 36.5 mm Hg 07/23/20 15:15 ABG pO2 84.1 mm Hg (80.0-90.0) 07/23/20 15:15 ABG O2 Saturation 96.8 % (95.0-99.0) 07/23/20 15:15 PT/INR, D-dimer PT 15.2 Sec. (12.2-14.9) H 07/24/20 04:43 INR 1.17 (0.87-1.13) H 07/24/20 04:43 Abnormal lab findings: Abnormal Labs 07/22/20 07/22/20 07/22/20 21:21 21:21 21:21 WBC 14.9 H RBC 6.80 H Hgb 19.6 H Hct 58.0 H Plt Count 138 L Lymph % (Auto) Lymph # Baso # Seg Neutrophils % Seg Neuts % (Manual) 90.0 H Lymphocytes % (Manual) 5.0 L Seg Neutrophils # Seg Neutrophils # Man 13.4 H Lymphocytes # (Manual) 0.7 L PT INR ABG pH ABG Hemoglobin VBG pH 7.269 L Oxyhemoglobin Sodium 156 H Potassium 5.6 H Chloride Carbon Dioxide 17 L BUN 47 H Creatinine 2.1 H Glucose 740 H* POC Glucose Hemoglobin A1c Calcium Phosphorus Magnesium 4.10 H AST 54 H Total Creatine Kinase 4587 H Total Protein 8.5 H Urine WBC (Auto) 07/22/20 07/22/20 07/22/20 21:31 22:37 22:37 WBC RBC Hgb Hct Plt Count Lymph % (Auto) Lymph # Baso # Seg Neutrophils % Seg Neuts % (Manual) Lymphocytes % (Manual) Seg Neutrophils # Seg Neutrophils # Man Lymphocytes # (Manual) PT INR ABG pH ABG Hemoglobin VBG pH Oxyhemoglobin Sodium 148 H D Potassium 7.2 H* D Chloride 108.5 H Carbon Dioxide 8 L* D BUN 47 H Creatinine 1.8 H Glucose 684 H* POC Glucose Hemoglobin A1c Calcium Phosphorus 6.30 H Magnesium 4.50 H AST Total Creatine Kinase Total Protein Urine WBC (Auto) 10.0 H 07/22/20 07/23/20 07/23/20 22:50 00:14 01:17 WBC RBC Hgb Hct Plt Count Lymph % (Auto) Lymph # Baso # Seg Neutrophils % Seg Neuts % (Manual) Lymphocytes % (Manual) Seg Neutrophils # Seg Neutrophils # Man Lymphocytes # (Manual) PT INR ABG pH ABG Hemoglobin VBG pH Oxyhemoglobin Sodium Potassium Chloride Carbon Dioxide BUN Creatinine Glucose POC Glucose 477 H 465 H > 500 H Hemoglobin A1c Calcium Phosphorus Magnesium AST Total Creatine Kinase Total Protein Urine WBC (Auto) 07/23/20 07/23/20 07/23/20 02:26 02:26 02:26 WBC RBC Hgb Hct Plt Count Lymph % (Auto) Lymph # Baso # Seg Neutrophils % Seg Neuts % (Manual) Lymphocytes % (Manual) Seg Neutrophils # Seg Neutrophils # Man Lymphocytes # (Manual) PT INR ABG pH ABG Hemoglobin VBG pH Oxyhemoglobin Sodium 164 H* D Potassium 5.2 H D Chloride 120.6 H Carbon Dioxide 18 L D BUN 45 H Creatinine 1.5 H Glucose 497 H POC Glucose Hemoglobin A1c 11.7 H Calcium 10.3 H Phosphorus Magnesium 3.90 H AST Total Creatine Kinase Total Protein Urine WBC (Auto) 07/23/20 07/23/20 07/23/20 02:27 03:15 04:31 WBC RBC Hgb Hct Plt Count Lymph % (Auto) Lymph # Baso # Seg Neutrophils % Seg Neuts % (Manual) Lymphocytes % (Manual) Seg Neutrophils # Seg Neutrophils # Man Lymphocytes # (Manual) PT INR ABG pH ABG Hemoglobin VBG pH Oxyhemoglobin Sodium Potassium Chloride Carbon Dioxide BUN Creatinine Glucose POC Glucose 406 H 392 H 369 H Hemoglobin A1c Calcium Phosphorus Magnesium AST Total Creatine Kinase Total Protein Urine WBC (Auto) 07/23/20 07/23/20 07/23/20 05:21 05:34 06:14 WBC RBC Hgb Hct Plt Count Lymph % (Auto) Lymph # Baso # Seg Neutrophils % Seg Neuts % (Manual) Lymphocytes % (Manual) Seg Neutrophils # Seg Neutrophils # Man Lymphocytes # (Manual) PT INR ABG pH ABG Hemoglobin VBG pH Oxyhemoglobin Sodium 166 H* Potassium Chloride 129.4 H Carbon Dioxide BUN 40 H Creatinine 1.4 H Glucose 340 H POC Glucose 280 H 140 H Hemoglobin A1c Calcium Phosphorus Magnesium AST Total Creatine Kinase Total Protein Urine WBC (Auto) 07/23/20 07/23/20 07/23/20 06:37 08:02 09:16 WBC RBC Hgb Hct Plt Count Lymph % (Auto) Lymph # Baso # Seg Neutrophils % Seg Neuts % (Manual) Lymphocytes % (Manual) Seg Neutrophils # Seg Neutrophils # Man Lymphocytes # (Manual) PT INR ABG pH ABG Hemoglobin VBG pH Oxyhemoglobin Sodium Potassium Chloride Carbon Dioxide BUN Creatinine Glucose POC Glucose 290 H 285 H 258 H Hemoglobin A1c Calcium Phosphorus Magnesium AST Total Creatine Kinase Total Protein Urine WBC (Auto) 07/23/20 07/23/20 07/23/20 10:17 11:18 13:34 WBC RBC Hgb Hct Plt Count Lymph % (Auto) Lymph # Baso # Seg Neutrophils % Seg Neuts % (Manual) Lymphocytes % (Manual) Seg Neutrophils # Seg Neutrophils # Man Lymphocytes # (Manual) PT INR ABG pH ABG Hemoglobin VBG pH Oxyhemoglobin Sodium Potassium Chloride Carbon Dioxide BUN Creatinine Glucose POC Glucose 107 H 267 H 221 H Hemoglobin A1c Calcium Phosphorus Magnesium AST Total Creatine Kinase Total Protein Urine WBC (Auto) 07/23/20 07/23/20 07/23/20 14:17 14:40 15:08 WBC RBC Hgb Hct Plt Count Lymph % (Auto) Lymph # Baso # Seg Neutrophils % Seg Neuts % (Manual) Lymphocytes % (Manual) Seg Neutrophils # Seg Neutrophils # Man Lymphocytes # (Manual) PT INR ABG pH ABG Hemoglobin VBG pH Oxyhemoglobin Sodium 165 H* Potassium Chloride 131.2 H Carbon Dioxide 21 L BUN 32 H Creatinine Glucose 133 H POC Glucose 167 H 148 H Hemoglobin A1c Calcium Phosphorus Magnesium AST Total Creatine Kinase Total Protein Urine WBC (Auto) 07/23/20 07/23/20 07/23/20 15:15 20:14 21:09 WBC RBC Hgb Hct Plt Count Lymph % (Auto) Lymph # Baso # Seg Neutrophils % Seg Neuts % (Manual) Lymphocytes % (Manual) Seg Neutrophils # Seg Neutrophils # Man Lymphocytes # (Manual) PT INR ABG pH 7.451 H ABG Hemoglobin 18.8 H VBG pH Oxyhemoglobin 94.5 L Sodium Potassium Chloride Carbon Dioxide BUN Creatinine Glucose POC Glucose 159 H 154 H Hemoglobin A1c Calcium Phosphorus Magnesium AST Total Creatine Kinase Total Protein Urine WBC (Auto) 07/23/20 07/23/20 07/23/20 22:22 23:04 23:35 WBC RBC Hgb Hct Plt Count Lymph % (Auto) Lymph # Baso # Seg Neutrophils % Seg Neuts % (Manual) Lymphocytes % (Manual) Seg Neutrophils # Seg Neutrophils # Man Lymphocytes # (Manual) PT INR ABG pH ABG Hemoglobin VBG pH Oxyhemoglobin Sodium 163 H* Potassium 5.6 H Chloride 129.2 H Carbon Dioxide 21 L BUN 32 H Creatinine Glucose 175 H POC Glucose 145 H 176 H Hemoglobin A1c Calcium Phosphorus Magnesium AST Total Creatine Kinase Total Protein Urine WBC (Auto) 07/24/20 07/24/20 07/24/20 00:16 00:55 01:02 WBC RBC Hgb Hct Plt Count Lymph % (Auto) Lymph # Baso # Seg Neutrophils % Seg Neuts % (Manual) Lymphocytes % (Manual) Seg Neutrophils # Seg Neutrophils # Man Lymphocytes # (Manual) PT INR ABG pH ABG Hemoglobin VBG pH Oxyhemoglobin Sodium 166 H* Potassium Chloride 128.6 H Carbon Dioxide BUN 31 H Creatinine 1.4 H Glucose 216 H POC Glucose 157 H 207 H Hemoglobin A1c Calcium Phosphorus Magnesium AST Total Creatine Kinase Total Protein Urine WBC (Auto) 07/24/20 07/24/20 07/24/20 01:57 03:03 04:18 WBC RBC Hgb Hct Plt Count Lymph % (Auto) Lymph # Baso # Seg Neutrophils % Seg Neuts % (Manual) Lymphocytes % (Manual) Seg Neutrophils # Seg Neutrophils # Man Lymphocytes # (Manual) PT INR ABG pH ABG Hemoglobin VBG pH Oxyhemoglobin Sodium Potassium Chloride Carbon Dioxide BUN Creatinine Glucose POC Glucose 235 H 174 H 149 H Hemoglobin A1c Calcium Phosphorus Magnesium AST Total Creatine Kinase Total Protein Urine WBC (Auto) 07/24/20 07/24/20 07/24/20 04:43 04:43 04:43 WBC 13.0 H RBC 6.40 H Hgb 18.5 H Hct 54.2 H Plt Count Lymph % (Auto) 6.7 L Lymph # 0.9 L Baso # 0.2 H Seg Neutrophils % 87.0 H Seg Neuts % (Manual) Lymphocytes % (Manual) Seg Neutrophils # 11.3 H Seg Neutrophils # Man Lymphocytes # (Manual) PT 15.2 H INR 1.17 H ABG pH ABG Hemoglobin VBG pH Oxyhemoglobin Sodium 167 H* Potassium Chloride 127.0 H Carbon Dioxide BUN 29 H Creatinine Glucose 149 H POC Glucose Hemoglobin A1c Calcium Phosphorus Magnesium AST Total Creatine Kinase Total Protein Urine WBC (Auto) 07/24/20 07/24/20 07/24/20 05:23 06:25 07:28 WBC RBC Hgb Hct Plt Count Lymph % (Auto) Lymph # Baso # Seg Neutrophils % Seg Neuts % (Manual) Lymphocytes % (Manual) Seg Neutrophils # Seg Neutrophils # Man Lymphocytes # (Manual) PT INR ABG pH ABG Hemoglobin VBG pH Oxyhemoglobin Sodium 164 H* Potassium Chloride 126.0 H Carbon Dioxide BUN 27 H Creatinine Glucose 167 H POC Glucose 125 H 140 H Hemoglobin A1c Calcium Phosphorus Magnesium AST Total Creatine Kinase Total Protein Urine WBC (Auto) 07/24/20 07/24/20 07/24/20 07:30 08:29 09:33 WBC RBC Hgb Hct Plt Count Lymph % (Auto) Lymph # Baso # Seg Neutrophils % Seg Neuts % (Manual) Lymphocytes % (Manual) Seg Neutrophils # Seg Neutrophils # Man Lymphocytes # (Manual) PT INR ABG pH ABG Hemoglobin VBG pH Oxyhemoglobin Sodium Potassium Chloride Carbon Dioxide BUN Creatinine Glucose POC Glucose 140 H 146 H 161 H Hemoglobin A1c Calcium Phosphorus Magnesium AST Total Creatine Kinase Total Protein Urine WBC (Auto) 07/24/20 07/24/20 07/24/20 10:12 11:20 12:12 WBC RBC Hgb Hct Plt Count Lymph % (Auto) Lymph # Baso # Seg Neutrophils % Seg Neuts % (Manual) Lymphocytes % (Manual) Seg Neutrophils # Seg Neutrophils # Man Lymphocytes # (Manual) PT INR ABG pH ABG Hemoglobin VBG pH Oxyhemoglobin Sodium 165 H* Potassium Chloride 124.4 H Carbon Dioxide BUN 25 H Creatinine Glucose 107 H POC Glucose 151 H 131 H Hemoglobin A1c Calcium Phosphorus Magnesium AST Total Creatine Kinase Total Protein Urine WBC (Auto) 07/24/20 07/24/20 07/24/20 13:13 14:15 15:26 WBC RBC Hgb Hct Plt Count Lymph % (Auto) Lymph # Baso # Seg Neutrophils % Seg Neuts % (Manual) Lymphocytes % (Manual) Seg Neutrophils # Seg Neutrophils # Man Lymphocytes # (Manual) PT INR ABG pH ABG Hemoglobin VBG pH Oxyhemoglobin Sodium Potassium Chloride Carbon Dioxide BUN Creatinine Glucose POC Glucose 126 H 143 H 144 H Hemoglobin A1c Calcium Phosphorus Magnesium AST Total Creatine Kinase Total Protein Urine WBC (Auto) 07/24/20 07/24/20 07/24/20 17:03 17:27 20:11 WBC RBC Hgb Hct Plt Count Lymph % (Auto) Lymph # Baso # Seg Neutrophils % Seg Neuts % (Manual) Lymphocytes % (Manual) Seg Neutrophils # Seg Neutrophils # Man Lymphocytes # (Manual) PT INR ABG pH ABG Hemoglobin VBG pH Oxyhemoglobin Sodium Potassium Chloride Carbon Dioxide BUN Creatinine Glucose POC Glucose 121 H 151 H 227 H Hemoglobin A1c Calcium Phosphorus Magnesium AST Total Creatine Kinase Total Protein Urine WBC (Auto) 07/24/20 07/25/20 07/25/20 20:42 00:52 02:13 WBC RBC Hgb Hct Plt Count Lymph % (Auto) Lymph # Baso # Seg Neutrophils % Seg Neuts % (Manual) Lymphocytes % (Manual) Seg Neutrophils # Seg Neutrophils # Man Lymphocytes # (Manual) PT INR ABG pH ABG Hemoglobin VBG pH Oxyhemoglobin Sodium 160 H 158 H Potassium Chloride 121.2 H 118.8 H Carbon Dioxide BUN 21 H 21 H Creatinine Glucose 252 H 296 H POC Glucose 318 H Hemoglobin A1c Calcium Phosphorus Magnesium AST Total Creatine Kinase Total Protein Urine WBC (Auto) 07/25/20 07/25/20 07/25/20 05:48 05:51 08:34 WBC RBC Hgb Hct Plt Count Lymph % (Auto) Lymph # Baso # Seg Neutrophils % Seg Neuts % (Manual) Lymphocytes % (Manual) Seg Neutrophils # Seg Neutrophils # Man Lymphocytes # (Manual) PT INR ABG pH ABG Hemoglobin VBG pH Oxyhemoglobin Sodium 157 H Potassium Chloride 118.7 H Carbon Dioxide BUN Creatinine Glucose 286 H POC Glucose 265 H 263 H Hemoglobin A1c Calcium Phosphorus Magnesium AST Total Creatine Kinase Total Protein Urine WBC (Auto) Allied health notes reviewed: nursing
--- NOTE | 2020-07-25 14:20 | Progress Note ---
Assessment and Plan --DKA (diabetic ketoacidoses) Patient started on IV fluid and insulin drip. Anion gap close, patient started on long-acting insulin along with sliding scale Start on consistent carb diet --Acute metabolic encephalopathy, now resolved Likely from DKA and hyponatremia Continue to monitor clinically with frequent neuro exam --hypernatremia, improving Continue hypotonic fluid, monitor BMP consulted nephrology -- Hyperkalemia, resolved Patient has been given IV fluid, calcium chloride and Kayexalate. Will monitor potassium levels. --SHANICE, likely vasomotor nephropathy, resolved cont iv fluid and monitor BMP -- DVT prophylaxis patient on subcutaneous heparin. -- Full code status 07/23: Na 166 today, change iv fluid to d5w, monitor BMP, cont insulin drip. 07/24: Na level still 164- 165 today, cont hypotonic saline. called and updated 07/25: Mental status much improved, sodium level 157 today, continue hypotonic saline, start consistent carb diet, DC insulin drip and placed on long-acting insulin along with sliding scale. Continue to adjust insulin dose for better control blood glucose level. Subjective Date of service: 07/25/20 Principal diagnosis: DKA; Severe Hypernatremia; Acute metabolic encephalopathy; SHANICE Interval history: Patient seen and examined. Medical records and medication list reviewed. No acute event overnight noted by the RN. Patient denies any chest pain or difficulty breathing. Patient appears more coherent and oriented today Discussed plan of care at bedside with patient's RN. Objective - Exam Narrative Exam: GENERAL: well-developed and well-nourished black male lying on bed appeared to be in no discomfort. HEENT: Normocephalic. Atraumatic. No conjunctival congestion or icterus. Patient has moist mucous membranes. NECK: Supple. Trachea midline. CHEST/LUNGS: Clear to auscultated bilaterally, breathing nonlabored. No wheezes crackles or rhonchi. HEART/CARDIOVASCULAR: Regular in rate and rhythm. S1 and S2 positive. ABDOMEN: Abdomen is soft, nontender. Patient has normal bowel sounds. SKIN: There is no rash. Warm and dry. NEURO: No focal motor deficit. Follows command. AAo x3 MUSCULOSKELETAL: No joint effusion or tenderness. EXTRIMITY: No edema, no cyanosis or clubbing. PSYCH: Cooperative. - Constitutional Vitals: Vital Signs - 12hr 0907/25/20 07/25/20 03:00 03:43 04:00 Temperature 98.2 F Pulse Rate 104 H 108 H Respiratory 25 H 20 Rate Blood Pressure 123/71 131/81 O2 Sat by Pulse 99 100 Oximetry 07/25/20 07/25/20 07/25/20 05:00 06:00 07:00 Temperature Pulse Rate 105 H 104 H 100 H Respiratory 16 15 15 Rate Blood Pressure 120/85 117/90 126/91 O2 Sat by Pulse 100 100 100 Oximetry 07/25/20 07/25/20 07/25/20 08:00 09:00 10:00 Temperature 99.0 F Pulse Rate 97 H 101 H 102 H Respiratory 17 19 16 Rate Blood Pressure 126/91 136/76 138/97 O2 Sat by Pulse 99 98 100 Oximetry 07/25/20 07/25/20 07/25/20 11:00 11:42 12:00 Temperature 98.4 F Pulse Rate 103 H 97 H Respiratory 25 H Rate Blood Pressure 137/102 O2 Sat by Pulse 100 Oximetry 07/25/20 07/25/20 07/25/20 12:01 13:32 13:34 Temperature 98.3 F Pulse Rate 97 H 98 H Respiratory 23 Rate Blood Pressure 138/97 115/78 O2 Sat by Pulse 99 97 Oximetry - Labs CBC & Chem 7: 07/24/20 04:43 07/25/20 05:48 Labs: Abnormal lab results 07/24/20 07/24/20 07/24/20 Range/Units 15:26 17:03 17:27 Sodium (137-145) mmol/L Chloride (98-107) mmol/L BUN (9-20) mg/dL Glucose (75-100) mg/dL POC Glucose 144 H 121 H 151 H (70-105) 07/24/20 07/24/20 07/25/20 Range/Units 20:11 20:42 00:52 Sodium 160 H 158 H (137-145) mmol/L Chloride 121.2 H 118.8 H (98-107) mmol/L BUN 21 H 21 H (9-20) mg/dL Glucose 252 H 296 H (75-100) mg/dL POC Glucose 227 H (70-105) 07/25/20 07/25/20 07/25/20 Range/Units 02:13 05:48 05:51 Sodium 157 H (137-145) mmol/L Chloride 118.7 H (98-107) mmol/L BUN (9-20) mg/dL Glucose 286 H (75-100) mg/dL POC Glucose 318 H 265 H (70-105) 07/25/20 07/25/20 Range/Units 08:34 13:33 Sodium (137-145) mmol/L Chloride (98-107) mmol/L BUN (9-20) mg/dL Glucose (75-100) mg/dL POC Glucose 263 H 229 H (70-105) HEART Score - HEART Score Troponin: Troponin T 0.015 ng/mL (0.00-0.029) 07/22/20 21:21
[2020-07-26] MEDS: INSULIN LISPRO 100 UNIT/ML VIAL 3 mL SUB-Q SCH ×6 (01:35→21:35)
[2020-07-26] MEDS: DEXTROSE 5% IN WATER 1,000 ML IV SCH ×3 (03:46→21:35)
[2020-07-26] MEDS: HEPARIN 5,000 UNIT/1 ML VIAL SUB-Q SCH ×3 (05:12→21:35)
[2020-07-26 07:29] LABS: BUN/Creatinine Ratio 17; Blood Urea Nitrogen 15 mg/dL (9-20); Calcium 8.6 mg/dL (8.4-10.2); Hemolysis Index 8
[2020-07-26 07:35] LABS: Basophils # (Auto) 0.1 K/mm3 (0.0-0.1); Basophils % (Auto) 0.9 % (0.0-1.8); Eosinophils % (Auto) 0.6 % (0.0-4.3); Hematocrit 46.3 % (35.5-45.6); Hemoglobin 15.6 gm/dl (11.8-15.2); Lymphocytes # (Auto) 1.1 K/mm3 (1.2-5.4); Mean Corpuscular HGB Conc 34 % (32-34); Mean Corpuscular Volume 86 fl (84-94); Monocytes # (Auto) 0.3 K/mm3 (0.0-0.8); Red Blood Count 5.41 M/mm3 (3.65-5.03); Red Cell Distribution Width 13.6 % (13.2-15.2)
[2020-07-26 07:39] LABS: Platelet Count 91 K/mm3 (140-440)
[2020-07-26] MEDS: cefTRIAXone/NS 2 GM/100 ML 2 GM/100 ML BAG IV SCH (09:23)
[2020-07-26] MEDS: FAMOTIDINE 20 MG TAB PO SCH (09:23)
[2020-07-26] MEDS: INSULIN GLARGINE 100 UNITS/ML SUB-Q SCH (09:23)
[2020-07-26] MEDS: INSULIN NPH/REGULAR 70/30 INJ SUB-Q SCH ×2 (09:53→18:01)
[2020-07-26] MEDS ORDERED: INSULIN GLARGINE 100 UNITS/ML SUB-Q SCH (10:00)
--- NOTE | 2020-07-26 12:37 | Progress Note ---
Assessment and Plan --DKA (diabetic ketoacidoses) Blood glucose was 740 on admission Patient started on IV fluid and insulin drip. Anion gap close, patient started on long-acting insulin along with sliding scale, DC insulin drip Started on consistent carb diet --New onset diabetes mellitus likely type II -A1c 11.7 -Provide diabetic education -Continue consistent carb diet and continue to adjust insulin dose to better control blood glucose level --Acute metabolic encephalopathy, now resolved Likely from DKA and hyponatremia Continue to monitor clinically with frequent neuro exam --hypernatremia, improving Continue hypotonic fluid, monitor BMP consulted nephrology -- Hyperkalemia, resolved Patient has been given IV fluid, calcium chloride and Kayexalate. Will monitor potassium levels. --SHANICE, likely vasomotor nephropathy, resolved cont iv fluid and monitor BMP -- DVT prophylaxis patient on subcutaneous heparin. -- Full code status 07/23: Na 166 today, change iv fluid to d5w, monitor BMP, cont insulin drip. 07/24: Na level still 164- 165 today, cont hypotonic saline. called and updated 07/25: Mental status much improved, sodium level 157 today, continue hypotonic saline, start consistent carb diet, DC insulin drip and placed on long-acting insulin along with sliding scale. Continue to adjust insulin dose for better control blood glucose level. 07/26: Na 151 today, other electrolytes are stable. Continue consistent carb d iet. Continue to adjust long-acting insulin dose along with sliding scale. If sodium level continue to improves possible discharge tomorrow. Provide dietary and diabetic education Subjective Date of service: 07/26/20 Principal diagnosis: DKA; Severe Hypernatremia; Acute metabolic encephalopathy; SHANICE Interval history: Patient seen and examined. Medical records and medication list reviewed. No acute event overnight noted by the RN. Patient denies any chest pain or difficulty breathing. Patient appears coherent and oriented c/o mild headache Discussed plan of care at bedside with patient's RN. Objective - Exam Narrative Exam: GENERAL: well-developed and well-nourished black male lying on bed appeared to be in no discomfort. HEENT: Normocephalic. Atraumatic. No conjunctival congestion or icterus. Patient has moist mucous membranes. NECK: Supple. Trachea midline. CHEST/LUNGS: Clear to auscultated bilaterally, breathing nonlabored. No wheezes crackles or rhonchi. HEART/CARDIOVASCULAR: Regular in rate and rhythm. S1 and S2 positive. ABDOMEN: Abdomen is soft, nontender. Patient has normal bowel sounds. SKIN: There is no rash. Warm and dry. NEURO: No focal motor deficit. Follows command. AAo x3 MUSCULOSKELETAL: No joint effusion or tenderness. EXTRIMITY: No edema, no cyanosis or clubbing. PSYCH: Cooperative. - Constitutional Vitals: Vital Signs - 12hr 07/26/20 07/26/20 07/26/20 03:30 04:00 07:49 Temperature 99.0 F 98.9 F Pulse Rate 100 H 100 H 96 H Respiratory 16 16 Rate Blood Pressure 135/92 129/81 O2 Sat by Pulse 98 98 Oximetry 07/26/20 07/26/20 08:00 08:47 Temperature Pulse Rate 95 H Respiratory 18 Rate Blood Pressure O2 Sat by Pulse 99 Oximetry - Labs CBC & Chem 7: 07/26/20 06:49 07/27/20 05:41 Labs: Abnormal lab results 07/25/20 07/25/20 07/25/20 Range/Units 11:17 13:33 17:52 RBC (3.65-5.03) M/mm3 Hgb (11.8-15.2) gm/dl Hct (35.5-45.6) % Plt Count (140-440) K/mm3 Lymph # (1.2-5.4) K/mm3 Seg Neutrophils % (40.0-70.0) % Sodium (137-145) mmol/L Chloride (98-107) mmol/L Glucose (75-100) mg/dL POC Glucose 285 H 229 H 308 H (70-105) 07/25/20 07/26/20 07/26/20 Range/Units 21:10 01:27 05:27 RBC (3.65-5.03) M/mm3 Hgb (11.8-15.2) gm/dl Hct (35.5-45.6) % Plt Count (140-440) K/mm3 Lymph # (1.2-5.4) K/mm3 Seg Neutrophils % (40.0-70.0) % Sodium (137-145) mmol/L Chloride (98-107) mmol/L Glucose (75-100) mg/dL POC Glucose 328 H 366 H 313 H (70-105) 07/26/20 07/26/20 07/26/20 Range/Units 06:49 06:49 08:58 RBC 5.41 H (3.65-5.03) M/mm3 Hgb 15.6 H (11.8-15.2) gm/dl Hct 46.3 H D (35.5-45.6) % Plt Count 91 L (140-440) K/mm3 Lymph # 1.1 L (1.2-5.4) K/mm3 Seg Neutrophils % 75.5 H (40.0-70.0) % Sodium 151 H (137-145) mmol/L Chloride 110.7 H (98-107) mmol/L Glucose 288 H (75-100) mg/dL POC Glucose 247 H (70-105) 07/26/20 Range/Units 11:53 RBC (3.65-5.03) M/mm3 Hgb (11.8-15.2) gm/dl Hct (35.5-45.6) % Plt Count (140-440) K/mm3 Lymph # (1.2-5.4) K/mm3 Seg Neutrophils % (40.0-70.0) % Sodium (137-145) mmol/L Chloride (98-107) mmol/L Glucose (75-100) mg/dL POC Glucose 247 H (70-105) HEART Score - HEART Score Troponin: Troponin T 0.015 ng/mL (0.00-0.029) 07/22/20 21:21
--- NOTE | 2020-07-26 12:55 | Progress Note ---
Assessment and Plan 1. Acute kidney injury: Charmaineley vasomotor SHANICE in the setting of volume depletion and DKA. CT abdomen was negative for hydronephrosis. Continue IV fluids. Renal function has improved. Monitor renal function. Avoid nephrotoxic agents. Meds dosage based on GFR. 2. Hypernatremia: Secondary to dehydration. Sodium level is improving with IV D5W. Encouraged PO fluids. Monitor levels. 3. FEN: Hyperkalemia, improved. Metabolic acidosis, improved. Monitor lytes and volume status. 4. DKA: Monitor glucose levels. 5. Acute metabolic encephalopathy, POA: Monitor. Will sign off. Please call with any questions. - Subjective: Patient was seen and examined at the bedside. Doing ok. - General Appearance General appearance: well-developed, appears stated age, not in distress HEENT: ATNC, pupils appears equal Neck: Trachea midline Respiratory: ctab Cardiology: regular, S1S2, tachycardia, no murmur Gastrointestinal: soft, not tender, not distended Integumentary: no obvious rash Neurologic: non-focal, oriented Ext: no edema noted Subjective Date of service: 07/26/20 Principal diagnosis: DKA; Severe Hypernatremia; Acute metabolic encephalopathy; SHANICE Objective - Vital Signs Vital signs: Vital Signs - 12hr 07/26/20 07/26/20 07/26/20 03:30 04:00 07:49 Temperature 99.0 F 98.9 F Pulse Rate 100 H 100 H 96 H Respiratory 16 16 Rate Blood Pressure 135/92 129/81 Blood Pressure [right arm] O2 Sat by Pulse 98 98 Oximetry 07/26/20 07/26/20 07/26/20 08:00 08:47 12:34 Temperature 98.6 F Pulse Rate 95 H 94 H Respiratory 18 18 Rate Blood Pressure Blood Pressure 126/82 [right arm] O2 Sat by Pulse 99 100 Oximetry - Lab 07/26/20 06:49 07/26/20 06:49 Most recent lab results ABG pH 7.451 pH Units (7.350-7.450) H 07/23/20 15:15 ABG pCO2 36.5 mm Hg 07/23/20 15:15 ABG pO2 84.1 mm Hg (80.0-90.0) 07/23/20 15:15 ABG HCO3 24.9 mmol/L (20.0-26.0) 07/23/20 15:15 ABG O2 Saturation 96.8 % (95.0-99.0) 07/23/20 15:15 Calcium 8.6 mg/dL (8.4-10.2) 07/26/20 06:49 Phosphorus 2.80 mg/dL (2.5-4.5) 07/26/20 06:49 Magnesium 3.90 mg/dL (1.7-2.3) H 07/23/20 02:26 Medications & Allergies - Medications Allergies/Adverse Reactions: Allergies No Known Allergies Allergy (Unverified 07/22/20 22:27) Home Medications: Home Medications Medication Instructions Recorded Confirmed Last Taken Type Amoxicillin CAP 125 mg PO BID 07/23/20 07/23/20 07/22/20 History 125 mg Active Medications: Generic Name Dose Route Start Last Admin Trade Name Freq PRN Reason Stop Dose Admin Dextrose 50 ml 07/24/20 16:11 D50w (25gm) Syringe IV Q30MIN PRN Hypoglycemia Protocol Famotidine 20 mg 07/25/20 10:00 07/26/20 09:23 Pepcid PO 20 mg QDAY BRADFORD Administration Heparin Sodium (Porcine) 5,000 unit 07/23/20 06:00 07/26/20 05:12 Heparin SUB-Q 5,000 unit Q8HR BRADFORD Administration Dextrose 1,000 mls @ 200 mls/hr 07/24/20 16:00 07/26/20 03:46 D5w IV 200 mls/hr DIRECT BRADFORD Administration Insulin Human Isoph/Insulin Regular 20 unit 07/26/20 10:00 07/26/20 09:53 Humulin 70/30 SUB-Q 20 unit BIDDIAB BRADFORD Administration Insulin Human Lispro 0 unit 07/24/20 17:00 07/26/20 09:23 Humalog SUB-Q 4 unit Q4H BRADFORD Administration Protocol Sodium Chloride 10 ml 07/23/20 10:00 07/26/20 09:34 Sodium Chloride Flush Syringe 10 Ml IV 10 ml BID BRADFORD Administration Sodium Chloride 10 ml 07/23/20 01:34 Sodium Chloride Flush Syringe 10 Ml IV PRN PRN LINE FLUSH
[2020-07-26] MEDS ORDERED: ACETAMINOPHEN 325 MG TAB PO PRN (17:08)
--- NOTE | 2020-07-26 17:51 | Progress Note ---
Assessment and Plan Patient awake. Resting on room air. O2 saturation 98%. No respiratory distress. Patient afebrile. No leukocytosis. Patient admitted for DKA. Blood sugur 288. Anion gap 16. - Patient Problems (1) DKA (diabetic ketoacidoses) Current Visit: Yes Status: Acute Qualifiers: Diabetes mellitus type: type 2 Diabetes mellitus complication detail: with coma Qualified Code(s): E11.11 - Type 2 diabetes mellitus with ketoacidosis with coma Plan to address problem: Anion gap improving 16. Management as per primary care. (2) Hyperkalemia Current Visit: Yes Status: Acute Plan to address problem: Improved. To days K+ 3.6. (3) Metabolic encephalopathy Current Visit: Yes Status: Acute Plan to address problem: Management as per Primary care. (4) Rhabdomyolysis Current Visit: Yes Status: Acute Qualifiers: Rhabdomyolysis type: non-traumatic Plan to address problem: CPK 4,587. Patient is on I/V fluids. Continue monitor CPK levels. Subjective Date of service: 07/26/20 Principal diagnosis: DKA; Severe Hypernatremia; Acute metabolic encephalopathy; SHANICE Interval history: Patient awake. Resting on room air. O2 saturation 98%. No respiratory distress. Patient afebrile. No leukocytosis. Patient admitted for DKA. Blood sugur 288. Anion gap 16. Objective Vital Signs - 12hr 07/26/20 07/26/20 07/26/20 07:49 08:00 08:47 Temperature 98.9 F Pulse Rate 96 H 95 H Respiratory 16 18 Rate Blood Pressure 129/81 Blood Pressure [right arm] O2 Sat by Pulse 98 99 Oximetry 07/26/20 07/26/20 12:34 16:33 Temperature 98.6 F 98.7 F Pulse Rate 94 H 93 H Respiratory 18 18 Rate Blood Pressure 145/93 Blood Pressure 126/82 [right arm] O2 Sat by Pulse 100 98 Oximetry Constitutional: no acute distress, alert Eyes: non-icteric ENT: oropharynx moist Neck: supple, no lymphadenopathy, no JVD Effort: normal Ascultation: Bilateral: diminished breath sounds Percussion: Bilateral: not dull Cardiovascular: regular rate and rhythm, other (S1,S2) Gastrointestinal: normoactive bowel sounds, soft, non-tender, non-distended Integumentary: normal Extremities: no cyanosis, no edema, pink and warm, pulses normal Neurologic: normal mental status, non-focal exam (moves all extemities), pupils equal and round, CN II-XII normal, motor strength normal and Psychiatric: mood appropriate, affect normal CBC and BMP: 07/26/20 06:49 07/26/20 06:49 ABG, PT/INR, D-dimer: ABG ABG pH 7.451 pH Units (7.350-7.450) H 07/23/20 15:15 ABG pCO2 36.5 mm Hg 07/23/20 15:15 ABG pO2 84.1 mm Hg (80.0-90.0) 07/23/20 15:15 ABG O2 Saturation 96.8 % (95.0-99.0) 07/23/20 15:15 PT/INR, D-dimer PT 15.2 Sec. (12.2-14.9) H 07/24/20 04:43 INR 1.17 (0.87-1.13) H 07/24/20 04:43 Abnormal lab findings: Abnormal Labs 07/22/20 07/22/20 07/22/20 21:21 21:21 21:21 WBC 14.9 H RBC 6.80 H Hgb 19.6 H Hct 58.0 H Plt Count 138 L Lymph % (Auto) Lymph # Baso # Seg Neutrophils % Seg Neuts % (Manual) 90.0 H Lymphocytes % (Manual) 5.0 L Seg Neutrophils # Seg Neutrophils # Man 13.4 H Lymphocytes # (Manual) 0.7 L PT INR ABG pH ABG Hemoglobin VBG pH 7.269 L Oxyhemoglobin Sodium 156 H Potassium 5.6 H Chloride Carbon Dioxide 17 L BUN 47 H Creatinine 2.1 H Glucose 740 H* POC Glucose Hemoglobin A1c Calcium Phosphorus Magnesium 4.10 H AST 54 H Total Creatine Kinase 4587 H Total Protein 8.5 H Urine WBC (Auto) 07/22/20 07/22/20 07/22/20 21:31 22:37 22:37 WBC RBC Hgb Hct Plt Count Lymph % (Auto) Lymph # Baso # Seg Neutrophils % Seg Neuts % (Manual) Lymphocytes % (Manual) Seg Neutrophils # Seg Neutrophils # Man Lymphocytes # (Manual) PT INR ABG pH ABG Hemoglobin VBG pH Oxyhemoglobin Sodium 148 H D Potassium 7.2 H* D Chloride 108.5 H Carbon Dioxide 8 L* D BUN 47 H Creatinine 1.8 H Glucose 684 H* POC Glucose Hemoglobin A1c Calcium Phosphorus 6.30 H Magnesium 4.50 H AST Total Creatine Kinase Total Protein Urine WBC (Auto) 10.0 H 07/22/20 07/23/20 07/23/20 22:50 00:14 01:17 WBC RBC Hgb Hct Plt Count Lymph % (Auto) Lymph # Baso # Seg Neutrophils % Seg Neuts % (Manual) Lymphocytes % (Manual) Seg Neutrophils # Seg Neutrophils # Man Lymphocytes # (Manual) PT INR ABG pH ABG Hemoglobin VBG pH Oxyhemoglobin Sodium Potassium Chloride Carbon Dioxide BUN Creatinine Glucose POC Glucose 477 H 465 H > 500 H Hemoglobin A1c Calcium Phosphorus Magnesium AST Total Creatine Kinase Total Protein Urine WBC (Auto) 07/23/20 07/23/20 07/23/20 02:26 02:26 02:26 WBC RBC Hgb Hct Plt Count Lymph % (Auto) Lymph # Baso # Seg Neutrophils % Seg Neuts % (Manual) Lymphocytes % (Manual) Seg Neutrophils # Seg Neutrophils # Man Lymphocytes # (Manual) PT INR ABG pH ABG Hemoglobin VBG pH Oxyhemoglobin Sodium 164 H* D Potassium 5.2 H D Chloride 120.6 H Carbon Dioxide 18 L D BUN 45 H Creatinine 1.5 H Glucose 497 H POC Glucose Hemoglobin A1c 11.7 H Calcium 10.3 H Phosphorus Magnesium 3.90 H AST Total Creatine Kinase Total Protein Urine WBC (Auto) 07/23/20 07/23/20 07/23/20 02:27 03:15 04:31 WBC RBC Hgb Hct Plt Count Lymph % (Auto) Lymph # Baso # Seg Neutrophils % Seg Neuts % (Manual) Lymphocytes % (Manual) Seg Neutrophils # Seg Neutrophils # Man Lymphocytes # (Manual) PT INR ABG pH ABG Hemoglobin VBG pH Oxyhemoglobin Sodium Potassium Chloride Carbon Dioxide BUN Creatinine Glucose POC Glucose 406 H 392 H 369 H Hemoglobin A1c Calcium Phosphorus Magnesium AST Total Creatine Kinase Total Protein Urine WBC (Auto) 07/23/20 07/23/20 07/23/20 05:21 05:34 06:14 WBC RBC Hgb Hct Plt Count Lymph % (Auto) Lymph # Baso # Seg Neutrophils % Seg Neuts % (Manual) Lymphocytes % (Manual) Seg Neutrophils # Seg Neutrophils # Man Lymphocytes # (Manual) PT INR ABG pH ABG Hemoglobin VBG pH Oxyhemoglobin Sodium 166 H* Potassium Chloride 129.4 H Carbon Dioxide BUN 40 H Creatinine 1.4 H Glucose 340 H POC Glucose 280 H 140 H Hemoglobin A1c Calcium Phosphorus Magnesium AST Total Creatine Kinase Total Protein Urine WBC (Auto) 07/23/20 07/23/20 07/23/20 06:37 08:02 09:16 WBC RBC Hgb Hct Plt Count Lymph % (Auto) Lymph # Baso # Seg Neutrophils % Seg Neuts % (Manual) Lymphocytes % (Manual) Seg Neutrophils # Seg Neutrophils # Man Lymphocytes # (Manual) PT INR ABG pH ABG Hemoglobin VBG pH Oxyhemoglobin Sodium Potassium Chloride Carbon Dioxide BUN Creatinine Glucose POC Glucose 290 H 285 H 258 H Hemoglobin A1c Calcium Phosphorus Magnesium AST Total Creatine Kinase Total Protein Urine WBC (Auto) 07/23/20 07/23/20 07/23/20 10:17 11:18 13:34 WBC RBC Hgb Hct Plt Count Lymph % (Auto) Lymph # Baso # Seg Neutrophils % Seg Neuts % (Manual) Lymphocytes % (Manual) Seg Neutrophils # Seg Neutrophils # Man Lymphocytes # (Manual) PT INR ABG pH ABG Hemoglobin VBG pH Oxyhemoglobin Sodium Potassium Chloride Carbon Dioxide BUN Creatinine Glucose POC Glucose 107 H 267 H 221 H Hemoglobin A1c Calcium Phosphorus Magnesium AST Total Creatine Kinase Total Protein Urine WBC (Auto) 07/23/20 07/23/20 07/23/20 14:17 14:40 15:08 WBC RBC Hgb Hct Plt Count Lymph % (Auto) Lymph # Baso # Seg Neutrophils % Seg Neuts % (Manual) Lymphocytes % (Manual) Seg Neutrophils # Seg Neutrophils # Man Lymphocytes # (Manual) PT INR ABG pH ABG Hemoglobin VBG pH Oxyhemoglobin Sodium 165 H* Potassium Chloride 131.2 H Carbon Dioxide 21 L BUN 32 H Creatinine Glucose 133 H POC Glucose 167 H 148 H Hemoglobin A1c Calcium Phosphorus Magnesium AST Total Creatine Kinase Total Protein Urine WBC (Auto) 07/23/20 07/23/20 07/23/20 15:15 20:14 21:09 WBC RBC Hgb Hct Plt Count Lymph % (Auto) Lymph # Baso # Seg Neutrophils % Seg Neuts % (Manual) Lymphocytes % (Manual) Seg Neutrophils # Seg Neutrophils # Man Lymphocytes # (Manual) PT INR ABG pH 7.451 H ABG Hemoglobin 18.8 H VBG pH Oxyhemoglobin 94.5 L Sodium Potassium Chloride Carbon Dioxide BUN Creatinine Glucose POC Glucose 159 H 154 H Hemoglobin A1c Calcium Phosphorus Magnesium AST Total Creatine Kinase Total Protein Urine WBC (Auto) 07/23/20 07/23/20 07/23/20 22:22 23:04 23:35 WBC RBC Hgb Hct Plt Count Lymph % (Auto) Lymph # Baso # Seg Neutrophils % Seg Neuts % (Manual) Lymphocytes % (Manual) Seg Neutrophils # Seg Neutrophils # Man Lymphocytes # (Manual) PT INR ABG pH ABG Hemoglobin VBG pH Oxyhemoglobin Sodium 163 H* Potassium 5.6 H Chloride 129.2 H Carbon Dioxide 21 L BUN 32 H Creatinine Glucose 175 H POC Glucose 145 H 176 H Hemoglobin A1c Calcium Phosphorus Magnesium AST Total Creatine Kinase Total Protein Urine WBC (Auto) 07/24/20 07/24/20 07/24/20 00:16 00:55 01:02 WBC RBC Hgb Hct Plt Count Lymph % (Auto) Lymph # Baso # Seg Neutrophils % Seg Neuts % (Manual) Lymphocytes % (Manual) Seg Neutrophils # Seg Neutrophils # Man Lymphocytes # (Manual) PT INR ABG pH ABG Hemoglobin VBG pH Oxyhemoglobin Sodium 166 H* Potassium Chloride 128.6 H Carbon Dioxide BUN 31 H Creatinine 1.4 H Glucose 216 H POC Glucose 157 H 207 H Hemoglobin A1c Calcium Phosphorus Magnesium AST Total Creatine Kinase Total Protein Urine WBC (Auto) 07/24/20 07/24/20 07/24/20 01:57 03:03 04:18 WBC RBC Hgb Hct Plt Count Lymph % (Auto) Lymph # Baso # Seg Neutrophils % Seg Neuts % (Manual) Lymphocytes % (Manual) Seg Neutrophils # Seg Neutrophils # Man Lymphocytes # (Manual) PT INR ABG pH ABG Hemoglobin VBG pH Oxyhemoglobin Sodium Potassium Chloride Carbon Dioxide BUN Creatinine Glucose POC Glucose 235 H 174 H 149 H Hemoglobin A1c Calcium Phosphorus Magnesium AST Total Creatine Kinase Total Protein Urine WBC (Auto) 07/24/20 07/24/20 07/24/20 04:43 04:43 04:43 WBC 13.0 H RBC 6.40 H Hgb 18.5 H Hct 54.2 H Plt Count Lymph % (Auto) 6.7 L Lymph # 0.9 L Baso # 0.2 H Seg Neutrophils % 87.0 H Seg Neuts % (Manual) Lymphocytes % (Manual) Seg Neutrophils # 11.3 H Seg Neutrophils # Man Lymphocytes # (Manual) PT 15.2 H INR 1.17 H ABG pH ABG Hemoglobin VBG pH Oxyhemoglobin Sodium 167 H* Potassium Chloride 127.0 H Carbon Dioxide BUN 29 H Creatinine Glucose 149 H POC Glucose Hemoglobin A1c Calcium Phosphorus Magnesium AST Total Creatine Kinase Total Protein Urine WBC (Auto) 07/24/20 07/24/20 07/24/20 05:23 06:25 07:28 WBC RBC Hgb Hct Plt Count Lymph % (Auto) Lymph # Baso # Seg Neutrophils % Seg Neuts % (Manual) Lymphocytes % (Manual) Seg Neutrophils # Seg Neutrophils # Man Lymphocytes # (Manual) PT INR ABG pH ABG Hemoglobin VBG pH Oxyhemoglobin Sodium 164 H* Potassium Chloride 126.0 H Carbon Dioxide BUN 27 H Creatinine Glucose 167 H POC Glucose 125 H 140 H Hemoglobin A1c Calcium Phosphorus Magnesium AST Total Creatine Kinase Total Protein Urine WBC (Auto) 07/24/20 07/24/20 07/24/20 07:30 08:29 09:33 WBC RBC Hgb Hct Plt Count Lymph % (Auto) Lymph # Baso # Seg Neutrophils % Seg Neuts % (Manual) Lymphocytes % (Manual) Seg Neutrophils # Seg Neutrophils # Man Lymphocytes # (Manual) PT INR ABG pH ABG Hemoglobin VBG pH Oxyhemoglobin Sodium Potassium Chloride Carbon Dioxide BUN Creatinine Glucose POC Glucose 140 H 146 H 161 H Hemoglobin A1c Calcium Phosphorus Magnesium AST Total Creatine Kinase Total Protein Urine WBC (Auto) 07/24/20 07/24/20 07/24/20 10:12 11:20 12:12 WBC RBC Hgb Hct Plt Count Lymph % (Auto) Lymph # Baso # Seg Neutrophils % Seg Neuts % (Manual) Lymphocytes % (Manual) Seg Neutrophils # Seg Neutrophils # Man Lymphocytes # (Manual) PT INR ABG pH ABG Hemoglobin VBG pH Oxyhemoglobin Sodium 165 H* Potassium Chloride 124.4 H Carbon Dioxide BUN 25 H Creatinine Glucose 107 H POC Glucose 151 H 131 H Hemoglobin A1c Calcium Phosphorus Magnesium AST Total Creatine Kinase Total Protein Urine WBC (Auto) 07/24/20 07/24/20 07/24/20 13:13 14:15 15:26 WBC RBC Hgb Hct Plt Count Lymph % (Auto) Lymph # Baso # Seg Neutrophils % Seg Neuts % (Manual) Lymphocytes % (Manual) Seg Neutrophils # Seg Neutrophils # Man Lymphocytes # (Manual) PT INR ABG pH ABG Hemoglobin VBG pH Oxyhemoglobin Sodium Potassium Chloride Carbon Dioxide BUN Creatinine Glucose POC Glucose 126 H 143 H 144 H Hemoglobin A1c Calcium Phosphorus Magnesium AST Total Creatine Kinase Total Protein Urine WBC (Auto) 07/24/20 07/24/20 07/24/20 16:10 17:03 17:27 WBC RBC Hgb Hct Plt Count Lymph % (Auto) Lymph # Baso # Seg Neutrophils % Seg Neuts % (Manual) Lymphocytes % (Manual) Seg Neutrophils # Seg Neutrophils # Man Lymphocytes # (Manual) PT INR ABG pH ABG Hemoglobin VBG pH Oxyhemoglobin Sodium Potassium Chloride Carbon Dioxide BUN Creatinine Glucose POC Glucose 136 H 121 H 151 H Hemoglobin A1c Calcium Phosphorus Magnesium AST Total Creatine Kinase Total Protein Urine WBC (Auto) 07/24/20 07/24/20 07/24/20 17:50 20:11 20:42 WBC RBC Hgb Hct Plt Count Lymph % (Auto) Lymph # Baso # Seg Neutrophils % Seg Neuts % (Manual) Lymphocytes % (Manual) Seg Neutrophils # Seg Neutrophils # Man Lymphocytes # (Manual) PT INR ABG pH ABG Hemoglobin VBG pH Oxyhemoglobin Sodium 160 H Potassium Chloride 121.2 H Carbon Dioxide BUN 21 H Creatinine Glucose 252 H POC Glucose 141 H 227 H Hemoglobin A1c Calcium Phosphorus Magnesium AST Total Creatine Kinase Total Protein Urine WBC (Auto) 07/25/20 07/25/20 07/25/20 00:52 02:13 05:48 WBC RBC Hgb Hct Plt Count Lymph % (Auto) Lymph # Baso # Seg Neutrophils % Seg Neuts % (Manual) Lymphocytes % (Manual) Seg Neutrophils # Seg Neutrophils # Man Lymphocytes # (Manual) PT INR ABG pH ABG Hemoglobin VBG pH Oxyhemoglobin Sodium 158 H 157 H Potassium Chloride 118.8 H 118.7 H Carbon Dioxide BUN 21 H Creatinine Glucose 296 H 286 H POC Glucose 318 H Hemoglobin A1c Calcium Phosphorus Magnesium AST Total Creatine Kinase Total Protein Urine WBC (Auto) 07/25/20 07/25/20 07/25/20 05:51 08:34 11:17 WBC RBC Hgb Hct Plt Count Lymph % (Auto) Lymph # Baso # Seg Neutrophils % Seg Neuts % (Manual) Lymphocytes % (Manual) Seg Neutrophils # Seg Neutrophils # Man Lymphocytes # (Manual) PT INR ABG pH ABG Hemoglobin VBG pH Oxyhemoglobin Sodium Potassium Chloride Carbon Dioxide BUN Creatinine Glucose POC Glucose 265 H 263 H 285 H Hemoglobin A1c Calcium Phosphorus Magnesium AST Total Creatine Kinase Total Protein Urine WBC (Auto) 07/25/20 07/25/20 07/25/20 13:33 17:52 21:10 WBC RBC Hgb Hct Plt Count Lymph % (Auto) Lymph # Baso # Seg Neutrophils % Seg Neuts % (Manual) Lymphocytes % (Manual) Seg Neutrophils # Seg Neutrophils # Man Lymphocytes # (Manual) PT INR ABG pH ABG Hemoglobin VBG pH Oxyhemoglobin Sodium Potassium Chloride Carbon Dioxide BUN Creatinine Glucose POC Glucose 229 H 308 H 328 H Hemoglobin A1c Calcium Phosphorus Magnesium AST Total Creatine Kinase Total Protein Urine WBC (Auto) 07/26/20 07/26/20 07/26/20 01:27 05:27 06:49 WBC RBC Hgb Hct Plt Count Lymph % (Auto) Lymph # Baso # Seg Neutrophils % Seg Neuts % (Manual) Lymphocytes % (Manual) Seg Neutrophils # Seg Neutrophils # Man Lymphocytes # (Manual) PT INR ABG pH ABG Hemoglobin VBG pH Oxyhemoglobin Sodium 151 H Potassium Chloride 110.7 H Carbon Dioxide BUN Creatinine Glucose 288 H POC Glucose 366 H 313 H Hemoglobin A1c Calcium Phosphorus Magnesium AST Total Creatine Kinase Total Protein Urine WBC (Auto) 07/26/20 07/26/20 07/26/20 06:49 08:58 11:53 WBC RBC 5.41 H Hgb 15.6 H Hct 46.3 H D Plt Count 91 L Lymph % (Auto) Lymph # 1.1 L Baso # Seg Neutrophils % 75.5 H Seg Neuts % (Manual) Lymphocytes % (Manual) Seg Neutrophils # Seg Neutrophils # Man Lymphocytes # (Manual) PT INR ABG pH ABG Hemoglobin VBG pH Oxyhemoglobin Sodium Potassium Chloride Carbon Dioxide BUN Creatinine Glucose POC Glucose 247 H 247 H Hemoglobin A1c Calcium Phosphorus Magnesium AST Total Creatine Kinase Total Protein Urine WBC (Auto) 07/26/20 16:47 WBC RBC Hgb Hct Plt Count Lymph % (Auto) Lymph # Baso # Seg Neutrophils % Seg Neuts % (Manual) Lymphocytes % (Manual) Seg Neutrophils # Seg Neutrophils # Man Lymphocytes # (Manual) PT INR ABG pH ABG Hemoglobin VBG pH Oxyhemoglobin Sodium Potassium Chloride Carbon Dioxide BUN Creatinine Glucose POC Glucose 274 H Hemoglobin A1c Calcium Phosphorus Magnesium AST Total Creatine Kinase Total Protein Urine WBC (Auto) Chest x-ray: report reviewed, image reviewed Additional Studies: CHEST 1 VIEW 07/24/20 INDICATION / CLINICAL INFORMATION: possible aspiration. COMPARISON: None available. FINDINGS: SUPPORT DEVICES: None. HEART / MEDIASTINUM: No significant abnormality. LUNGS / PLEURA: No significant pulmonary or pleural abnormality. No pneumothorax. ADDITIONAL FINDINGS: No significant additional findings. IMPRESSION: No acute cardiopulmonary abnormality. Allied health notes reviewed: nursing
[2020-07-26] MEDS ORDERED: BUTALB/ACETAMINOPHEN/CAFFEINE TAB PO PRN (18:16)
[2020-07-27] MEDS: INSULIN LISPRO 100 UNIT/ML VIAL 3 mL SUB-Q SCH ×6 (01:15→21:34)
[2020-07-27] MEDS: HEPARIN 5,000 UNIT/1 ML VIAL SUB-Q SCH ×3 (05:55→22:33)
[2020-07-27 06:40] LABS: BUN/Creatinine Ratio 23; Blood Urea Nitrogen 18 mg/dL (9-20); Calcium 9.1 mg/dL (8.4-10.2); Hemolysis Index 3
[2020-07-27] MEDS: FAMOTIDINE 20 MG TAB PO SCH (09:22)
[2020-07-27] MEDS: INSULIN NPH/REGULAR 70/30 INJ SUB-Q SCH ×2 (09:26→17:30)
--- NOTE | 2020-07-27 11:47 | Progress Note ---
Assessment and Plan Patient awake. Resting on room air. O2 saturation 99%. No respiratory distress. Patient afebrile. No leukocytosis. Patient admitted for DKA. last Blood sugur 288. Anion gap 16. - Patient Problems (1) DKA (diabetic ketoacidoses) Current Visit: Yes Status: Acute Qualifiers: Diabetes mellitus type: type 2 Diabetes mellitus complication detail: with coma Qualified Code(s): E11.11 - Type 2 diabetes mellitus with ketoacidosis with coma Plan to address problem: Anion gap improving 16. Management as per primary care. (2) Hyperkalemia Current Visit: Yes Status: Acute Plan to address problem: Improved. To days K+ 3.6. (3) Metabolic encephalopathy Current Visit: Yes Status: Acute Plan to address problem: Management as per Primary care. (4) Rhabdomyolysis Current Visit: Yes Status: Acute Qualifiers: Rhabdomyolysis type: non-traumatic Qualified Code(s): M62.82 - Rhabdomyolysis Plan to address problem: CPK 4,587. Patient is on I/V fluids. Continue monitor CPK levels. Subjective Date of service: 07/27/20 Principal diagnosis: DKA; Severe Hypernatremia; Acute metabolic encephalopathy; SHANICE Interval history: Patient awake. Resting on room air. O2 saturation 99%. No respiratory distress. Patient afebrile. No leukocytosis. Patient admitted for DKA. Last Blood sugur 288. Anion gap 16. Objective Vital Signs - 12hr 07/27/20 07/27/20 07/27/20 00:00 03:29 04:00 Temperature 97.6 F Pulse Rate 90 92 H 92 H Respiratory 16 Rate Blood Pressure 133/85 O2 Sat by Pulse 97 Oximetry 07/27/20 07/27/20 08:31 10:00 Temperature 98.5 F Pulse Rate 90 Respiratory 18 20 Rate Blood Pressure 127/93 O2 Sat by Pulse 99 98 Oximetry Constitutional: no acute distress, alert Eyes: non-icteric ENT: oropharynx moist Neck: supple, no lymphadenopathy, no JVD Effort: normal Ascultation: Bilateral: diminished breath sounds Percussion: Bilateral: not dull Cardiovascular: regular rate and rhythm, other (S1,S2) Gastrointestinal: normoactive bowel sounds, soft, non-tender, non-distended Integumentary: normal Extremities: no cyanosis, no edema, pink and warm, pulses normal Neurologic: normal mental status, non-focal exam (moves all extemities), pupils equal and round, CN II-XII normal, motor strength normal and Psychiatric: mood appropriate, affect normal CBC and BMP: 07/26/20 06:49 07/28/20 05:04 ABG, PT/INR, D-dimer: ABG ABG pH 7.451 pH Units (7.350-7.450) H 07/23/20 15:15 ABG pCO2 36.5 mm Hg 07/23/20 15:15 ABG pO2 84.1 mm Hg (80.0-90.0) 07/23/20 15:15 ABG O2 Saturation 96.8 % (95.0-99.0) 07/23/20 15:15 PT/INR, D-dimer PT 15.2 Sec. (12.2-14.9) H 07/24/20 04:43 INR 1.17 (0.87-1.13) H 07/24/20 04:43 Abnormal lab findings: Abnormal Labs 07/22/20 07/22/20 07/22/20 21:21 21:21 21:21 WBC 14.9 H RBC 6.80 H Hgb 19.6 H Hct 58.0 H Plt Count 138 L Lymph % (Auto) Lymph # Baso # Seg Neutrophils % Seg Neuts % (Manual) 90.0 H Lymphocytes % (Manual) 5.0 L Seg Neutrophils # Seg Neutrophils # Man 13.4 H Lymphocytes # (Manual) 0.7 L PT INR ABG pH ABG Hemoglobin VBG pH 7.269 L Oxyhemoglobin Sodium 156 H Potassium 5.6 H Chloride Carbon Dioxide 17 L BUN 47 H Creatinine 2.1 H Glucose 740 H* POC Glucose Hemoglobin A1c Calcium Phosphorus Magnesium 4.10 H AST 54 H Total Creatine Kinase 4587 H Total Protein 8.5 H Urine WBC (Auto) 07/22/20 07/22/20 07/22/20 21:31 22:37 22:37 WBC RBC Hgb Hct Plt Count Lymph % (Auto) Lymph # Baso # Seg Neutrophils % Seg Neuts % (Manual) Lymphocytes % (Manual) Seg Neutrophils # Seg Neutrophils # Man Lymphocytes # (Manual) PT INR ABG pH ABG Hemoglobin VBG pH Oxyhemoglobin Sodium 148 H D Potassium 7.2 H* D Chloride 108.5 H Carbon Dioxide 8 L* D BUN 47 H Creatinine 1.8 H Glucose 684 H* POC Glucose Hemoglobin A1c Calcium Phosphorus 6.30 H Magnesium 4.50 H AST Total Creatine Kinase Total Protein Urine WBC (Auto) 10.0 H 07/22/20 07/23/20 07/23/20 22:50 00:14 01:17 WBC RBC Hgb Hct Plt Count Lymph % (Auto) Lymph # Baso # Seg Neutrophils % Seg Neuts % (Manual) Lymphocytes % (Manual) Seg Neutrophils # Seg Neutrophils # Man Lymphocytes # (Manual) PT INR ABG pH ABG Hemoglobin VBG pH Oxyhemoglobin Sodium Potassium Chloride Carbon Dioxide BUN Creatinine Glucose POC Glucose 477 H 465 H > 500 H Hemoglobin A1c Calcium Phosphorus Magnesium AST Total Creatine Kinase Total Protein Urine WBC (Auto) 07/23/20 07/23/20 07/23/20 02:26 02:26 02:26 WBC RBC Hgb Hct Plt Count Lymph % (Auto) Lymph # Baso # Seg Neutrophils % Seg Neuts % (Manual) Lymphocytes % (Manual) Seg Neutrophils # Seg Neutrophils # Man Lymphocytes # (Manual) PT INR ABG pH ABG Hemoglobin VBG pH Oxyhemoglobin Sodium 164 H* D Potassium 5.2 H D Chloride 120.6 H Carbon Dioxide 18 L D BUN 45 H Creatinine 1.5 H Glucose 497 H POC Glucose Hemoglobin A1c 11.7 H Calcium 10.3 H Phosphorus Magnesium 3.90 H AST Total Creatine Kinase Total Protein Urine WBC (Auto) 07/23/20 07/23/20 07/23/20 02:27 03:15 04:31 WBC RBC Hgb Hct Plt Count Lymph % (Auto) Lymph # Baso # Seg Neutrophils % Seg Neuts % (Manual) Lymphocytes % (Manual) Seg Neutrophils # Seg Neutrophils # Man Lymphocytes # (Manual) PT INR ABG pH ABG Hemoglobin VBG pH Oxyhemoglobin Sodium Potassium Chloride Carbon Dioxide BUN Creatinine Glucose POC Glucose 406 H 392 H 369 H Hemoglobin A1c Calcium Phosphorus Magnesium AST Total Creatine Kinase Total Protein Urine WBC (Auto) 07/23/20 07/23/20 07/23/20 05:21 05:34 06:14 WBC RBC Hgb Hct Plt Count Lymph % (Auto) Lymph # Baso # Seg Neutrophils % Seg Neuts % (Manual) Lymphocytes % (Manual) Seg Neutrophils # Seg Neutrophils # Man Lymphocytes # (Manual) PT INR ABG pH ABG Hemoglobin VBG pH Oxyhemoglobin Sodium 166 H* Potassium Chloride 129.4 H Carbon Dioxide BUN 40 H Creatinine 1.4 H Glucose 340 H POC Glucose 280 H 140 H Hemoglobin A1c Calcium Phosphorus Magnesium AST Total Creatine Kinase Total Protein Urine WBC (Auto) 07/23/20 07/23/20 07/23/20 06:37 08:02 09:16 WBC RBC Hgb Hct Plt Count Lymph % (Auto) Lymph # Baso # Seg Neutrophils % Seg Neuts % (Manual) Lymphocytes % (Manual) Seg Neutrophils # Seg Neutrophils # Man Lymphocytes # (Manual) PT INR ABG pH ABG Hemoglobin VBG pH Oxyhemoglobin Sodium Potassium Chloride Carbon Dioxide BUN Creatinine Glucose POC Glucose 290 H 285 H 258 H Hemoglobin A1c Calcium Phosphorus Magnesium AST Total Creatine Kinase Total Protein Urine WBC (Auto) 07/23/20 07/23/20 07/23/20 10:17 11:18 13:34 WBC RBC Hgb Hct Plt Count Lymph % (Auto) Lymph # Baso # Seg Neutrophils % Seg Neuts % (Manual) Lymphocytes % (Manual) Seg Neutrophils # Seg Neutrophils # Man Lymphocytes # (Manual) PT INR ABG pH ABG Hemoglobin VBG pH Oxyhemoglobin Sodium Potassium Chloride Carbon Dioxide BUN Creatinine Glucose POC Glucose 107 H 267 H 221 H Hemoglobin A1c Calcium Phosphorus Magnesium AST Total Creatine Kinase Total Protein Urine WBC (Auto) 07/23/20 07/23/20 07/23/20 14:17 14:40 15:08 WBC RBC Hgb Hct Plt Count Lymph % (Auto) Lymph # Baso # Seg Neutrophils % Seg Neuts % (Manual) Lymphocytes % (Manual) Seg Neutrophils # Seg Neutrophils # Man Lymphocytes # (Manual) PT INR ABG pH ABG Hemoglobin VBG pH Oxyhemoglobin Sodium 165 H* Potassium Chloride 131.2 H Carbon Dioxide 21 L BUN 32 H Creatinine Glucose 133 H POC Glucose 167 H 148 H Hemoglobin A1c Calcium Phosphorus Magnesium AST Total Creatine Kinase Total Protein Urine WBC (Auto) 07/23/20 07/23/20 07/23/20 15:15 20:14 21:09 WBC RBC Hgb Hct Plt Count Lymph % (Auto) Lymph # Baso # Seg Neutrophils % Seg Neuts % (Manual) Lymphocytes % (Manual) Seg Neutrophils # Seg Neutrophils # Man Lymphocytes # (Manual) PT INR ABG pH 7.451 H ABG Hemoglobin 18.8 H VBG pH Oxyhemoglobin 94.5 L Sodium Potassium Chloride Carbon Dioxide BUN Creatinine Glucose POC Glucose 159 H 154 H Hemoglobin A1c Calcium Phosphorus Magnesium AST Total Creatine Kinase Total Protein Urine WBC (Auto) 07/23/20 07/23/20 07/23/20 22:22 23:04 23:35 WBC RBC Hgb Hct Plt Count Lymph % (Auto) Lymph # Baso # Seg Neutrophils % Seg Neuts % (Manual) Lymphocytes % (Manual) Seg Neutrophils # Seg Neutrophils # Man Lymphocytes # (Manual) PT INR ABG pH ABG Hemoglobin VBG pH Oxyhemoglobin Sodium 163 H* Potassium 5.6 H Chloride 129.2 H Carbon Dioxide 21 L BUN 32 H Creatinine Glucose 175 H POC Glucose 145 H 176 H Hemoglobin A1c Calcium Phosphorus Magnesium AST Total Creatine Kinase Total Protein Urine WBC (Auto) 07/24/20 07/24/20 07/24/20 00:16 00:55 01:02 WBC RBC Hgb Hct Plt Count Lymph % (Auto) Lymph # Baso # Seg Neutrophils % Seg Neuts % (Manual) Lymphocytes % (Manual) Seg Neutrophils # Seg Neutrophils # Man Lymphocytes # (Manual) PT INR ABG pH ABG Hemoglobin VBG pH Oxyhemoglobin Sodium 166 H* Potassium Chloride 128.6 H Carbon Dioxide BUN 31 H Creatinine 1.4 H Glucose 216 H POC Glucose 157 H 207 H Hemoglobin A1c Calcium Phosphorus Magnesium AST Total Creatine Kinase Total Protein Urine WBC (Auto) 07/24/20 07/24/20 07/24/20 01:57 03:03 04:18 WBC RBC Hgb Hct Plt Count Lymph % (Auto) Lymph # Baso # Seg Neutrophils % Seg Neuts % (Manual) Lymphocytes % (Manual) Seg Neutrophils # Seg Neutrophils # Man Lymphocytes # (Manual) PT INR ABG pH ABG Hemoglobin VBG pH Oxyhemoglobin Sodium Potassium Chloride Carbon Dioxide BUN Creatinine Glucose POC Glucose 235 H 174 H 149 H Hemoglobin A1c Calcium Phosphorus Magnesium AST Total Creatine Kinase Total Protein Urine WBC (Auto) 07/24/20 07/24/20 07/24/20 04:43 04:43 04:43 WBC 13.0 H RBC 6.40 H Hgb 18.5 H Hct 54.2 H Plt Count Lymph % (Auto) 6.7 L Lymph # 0.9 L Baso # 0.2 H Seg Neutrophils % 87.0 H Seg Neuts % (Manual) Lymphocytes % (Manual) Seg Neutrophils # 11.3 H Seg Neutrophils # Man Lymphocytes # (Manual) PT 15.2 H INR 1.17 H ABG pH ABG Hemoglobin VBG pH Oxyhemoglobin Sodium 167 H* Potassium Chloride 127.0 H Carbon Dioxide BUN 29 H Creatinine Glucose 149 H POC Glucose Hemoglobin A1c Calcium Phosphorus Magnesium AST Total Creatine Kinase Total Protein Urine WBC (Auto) 07/24/20 07/24/20 07/24/20 05:23 06:25 07:28 WBC RBC Hgb Hct Plt Count Lymph % (Auto) Lymph # Baso # Seg Neutrophils % Seg Neuts % (Manual) Lymphocytes % (Manual) Seg Neutrophils # Seg Neutrophils # Man Lymphocytes # (Manual) PT INR ABG pH ABG Hemoglobin VBG pH Oxyhemoglobin Sodium 164 H* Potassium Chloride 126.0 H Carbon Dioxide BUN 27 H Creatinine Glucose 167 H POC Glucose 125 H 140 H Hemoglobin A1c Calcium Phosphorus Magnesium AST Total Creatine Kinase Total Protein Urine WBC (Auto) 07/24/20 07/24/20 07/24/20 07:30 08:29 09:33 WBC RBC Hgb Hct Plt Count Lymph % (Auto) Lymph # Baso # Seg Neutrophils % Seg Neuts % (Manual) Lymphocytes % (Manual) Seg Neutrophils # Seg Neutrophils # Man Lymphocytes # (Manual) PT INR ABG pH ABG Hemoglobin VBG pH Oxyhemoglobin Sodium Potassium Chloride Carbon Dioxide BUN Creatinine Glucose POC Glucose 140 H 146 H 161 H Hemoglobin A1c Calcium Phosphorus Magnesium AST Total Creatine Kinase Total Protein Urine WBC (Auto) 07/24/20 07/24/20 07/24/20 10:12 11:20 12:12 WBC RBC Hgb Hct Plt Count Lymph % (Auto) Lymph # Baso # Seg Neutrophils % Seg Neuts % (Manual) Lymphocytes % (Manual) Seg Neutrophils # Seg Neutrophils # Man Lymphocytes # (Manual) PT INR ABG pH ABG Hemoglobin VBG pH Oxyhemoglobin Sodium 165 H* Potassium Chloride 124.4 H Carbon Dioxide BUN 25 H Creatinine Glucose 107 H POC Glucose 151 H 131 H Hemoglobin A1c Calcium Phosphorus Magnesium AST Total Creatine Kinase Total Protein Urine WBC (Auto) 07/24/20 07/24/20 07/24/20 13:13 14:15 15:26 WBC RBC Hgb Hct Plt Count Lymph % (Auto) Lymph # Baso # Seg Neutrophils % Seg Neuts % (Manual) Lymphocytes % (Manual) Seg Neutrophils # Seg Neutrophils # Man Lymphocytes # (Manual) PT INR ABG pH ABG Hemoglobin VBG pH Oxyhemoglobin Sodium Potassium Chloride Carbon Dioxide BUN Creatinine Glucose POC Glucose 126 H 143 H 144 H Hemoglobin A1c Calcium Phosphorus Magnesium AST Total Creatine Kinase Total Protein Urine WBC (Auto) 07/24/20 07/24/20 07/24/20 16:10 17:03 17:27 WBC RBC Hgb Hct Plt Count Lymph % (Auto) Lymph # Baso # Seg Neutrophils % Seg Neuts % (Manual) Lymphocytes % (Manual) Seg Neutrophils # Seg Neutrophils # Man Lymphocytes # (Manual) PT INR ABG pH ABG Hemoglobin VBG pH Oxyhemoglobin Sodium Potassium Chloride Carbon Dioxide BUN Creatinine Glucose POC Glucose 136 H 121 H 151 H Hemoglobin A1c Calcium Phosphorus Magnesium AST Total Creatine Kinase Total Protein Urine WBC (Auto) 07/24/20 07/24/20 07/24/20 17:50 20:11 20:42 WBC RBC Hgb Hct Plt Count Lymph % (Auto) Lymph # Baso # Seg Neutrophils % Seg Neuts % (Manual) Lymphocytes % (Manual) Seg Neutrophils # Seg Neutrophils # Man Lymphocytes # (Manual) PT INR ABG pH ABG Hemoglobin VBG pH Oxyhemoglobin Sodium 160 H Potassium Chloride 121.2 H Carbon Dioxide BUN 21 H Creatinine Glucose 252 H POC Glucose 141 H 227 H Hemoglobin A1c Calcium Phosphorus Magnesium AST Total Creatine Kinase Total Protein Urine WBC (Auto) 07/25/20 07/25/20 07/25/20 00:52 02:13 05:48 WBC RBC Hgb Hct Plt Count Lymph % (Auto) Lymph # Baso # Seg Neutrophils % Seg Neuts % (Manual) Lymphocytes % (Manual) Seg Neutrophils # Seg Neutrophils # Man Lymphocytes # (Manual) PT INR ABG pH ABG Hemoglobin VBG pH Oxyhemoglobin Sodium 158 H 157 H Potassium Chloride 118.8 H 118.7 H Carbon Dioxide BUN 21 H Creatinine Glucose 296 H 286 H POC Glucose 318 H Hemoglobin A1c Calcium Phosphorus Magnesium AST Total Creatine Kinase Total Protein Urine WBC (Auto) 07/25/20 07/25/20 07/25/20 05:51 08:34 11:17 WBC RBC Hgb Hct Plt Count Lymph % (Auto) Lymph # Baso # Seg Neutrophils % Seg Neuts % (Manual) Lymphocytes % (Manual) Seg Neutrophils # Seg Neutrophils # Man Lymphocytes # (Manual) PT INR ABG pH ABG Hemoglobin VBG pH Oxyhemoglobin Sodium Potassium Chloride Carbon Dioxide BUN Creatinine Glucose POC Glucose 265 H 263 H 285 H Hemoglobin A1c Calcium Phosphorus Magnesium AST Total Creatine Kinase Total Protein Urine WBC (Auto) 07/25/20 07/25/20 07/25/20 13:33 17:52 21:10 WBC RBC Hgb Hct Plt Count Lymph % (Auto) Lymph # Baso # Seg Neutrophils % Seg Neuts % (Manual) Lymphocytes % (Manual) Seg Neutrophils # Seg Neutrophils # Man Lymphocytes # (Manual) PT INR ABG pH ABG Hemoglobin VBG pH Oxyhemoglobin Sodium Potassium Chloride Carbon Dioxide BUN Creatinine Glucose POC Glucose 229 H 308 H 328 H Hemoglobin A1c Calcium Phosphorus Magnesium AST Total Creatine Kinase Total Protein Urine WBC (Auto) 07/26/20 07/26/20 07/26/20 01:27 05:27 06:49 WBC RBC Hgb Hct Plt Count Lymph % (Auto) Lymph # Baso # Seg Neutrophils % Seg Neuts % (Manual) Lymphocytes % (Manual) Seg Neutrophils # Seg Neutrophils # Man Lymphocytes # (Manual) PT INR ABG pH ABG Hemoglobin VBG pH Oxyhemoglobin Sodium 151 H Potassium Chloride 110.7 H Carbon Dioxide BUN Creatinine Glucose 288 H POC Glucose 366 H 313 H Hemoglobin A1c Calcium Phosphorus Magnesium AST Total Creatine Kinase Total Protein Urine WBC (Auto) 07/26/20 07/26/20 07/26/20 06:49 08:58 11:53 WBC RBC 5.41 H Hgb 15.6 H Hct 46.3 H D Plt Count 91 L Lymph % (Auto) Lymph # 1.1 L Baso # Seg Neutrophils % 75.5 H Seg Neuts % (Manual) Lymphocytes % (Manual) Seg Neutrophils # Seg Neutrophils # Man Lymphocytes # (Manual) PT INR ABG pH ABG Hemoglobin VBG pH Oxyhemoglobin Sodium Potassium Chloride Carbon Dioxide BUN Creatinine Glucose POC Glucose 247 H 247 H Hemoglobin A1c Calcium Phosphorus Magnesium AST Total Creatine Kinase Total Protein Urine WBC (Auto) 07/26/20 07/26/20 07/27/20 16:47 20:45 01:23 WBC RBC Hgb Hct Plt Count Lymph % (Auto) Lymph # Baso # Seg Neutrophils % Seg Neuts % (Manual) Lymphocytes % (Manual) Seg Neutrophils # Seg Neutrophils # Man Lymphocytes # (Manual) PT INR ABG pH ABG Hemoglobin VBG pH Oxyhemoglobin Sodium Potassium Chloride Carbon Dioxide BUN Creatinine Glucose POC Glucose 274 H 395 H 195 H Hemoglobin A1c Calcium Phosphorus Magnesium AST Total Creatine Kinase Total Protein Urine WBC (Auto) 07/27/20 07/27/20 07/27/20 05:11 05:41 09:35 WBC RBC Hgb Hct Plt Count Lymph % (Auto) Lymph # Baso # Seg Neutrophils % Seg Neuts % (Manual) Lymphocytes % (Manual) Seg Neutrophils # Seg Neutrophils # Man Lymphocytes # (Manual) PT INR ABG pH ABG Hemoglobin VBG pH Oxyhemoglobin Sodium 150 H Potassium Chloride 110.3 H Carbon Dioxide BUN Creatinine Glucose 219 H POC Glucose 224 H 238 H Hemoglobin A1c Calcium Phosphorus Magnesium AST Total Creatine Kinase Total Protein Urine WBC (Auto) Allied health notes reviewed: nursing
[2020-07-27] MEDS: DEXTROSE 5% IN WATER 1,000 ML IV SCH ×2 (14:07→22:35)
--- NOTE | 2020-07-27 14:58 | Progress Note ---
Assessment and Plan --DKA (diabetic ketoacidoses) Blood glucose was 740 on admission Patient started on IV fluid and insulin drip. Anion gap close, patient started on long-acting insulin along with sliding scale, DC insulin drip Started on consistent carb diet --New onset diabetes mellitus likely type II -A1c 11.7 -Provide diabetic education -Continue consistent carb diet and continue to adjust insulin dose to better control blood glucose level --Acute metabolic encephalopathy, now resolved Likely from DKA and hyponatremia Continue to monitor clinically with frequent neuro exam --hypernatremia, improving Continue hypotonic fluid, monitor BMP consulted nephrology -- Hyperkalemia, resolved Patient has been given IV fluid, calcium chloride and Kayexalate. Will monitor potassium levels. --SHANICE, likely vasomotor nephropathy, resolved cont iv fluid and monitor BMP -- DVT prophylaxis patient on subcutaneous heparin. -- Full code status 07/23: Na 166 today, change iv fluid to d5w, monitor BMP, cont insulin drip. 07/24: Na level still 164- 165 today, cont hypotonic saline. called and updated 07/25: Mental status much improved, sodium level 157 today, continue hypotonic saline, start consistent carb diet, DC insulin drip and placed on long-acting insulin along with sliding scale. Continue to adjust insulin dose for better control blood glucose level. 07/26: Na 151 today, other electrolytes are stable. Continue consistent carb d iet. Continue to adjust long-acting insulin dose along with sliding scale. If sodium level continue to improves possible discharge tomorrow. Provide dietary and diabetic education 07/27: Na 150 today. Continue consistent carb diet. Continue to adjust long- acting insulin dose along with sliding scale. If sodium level <150 possible discharge tomorrow Subjective Date of service: 07/27/20 Principal diagnosis: DKA; Severe Hypernatremia; Acute metabolic encephalopathy; SHANICE Interval history: Patient seen and examined. Medical records and medication list reviewed. No acute event overnight noted by the RN. Patient denies any chest pain or difficulty breathing. Na level still elevated Discussed plan of care at bedside with patient's RN. Objective - Exam Narrative Exam: GENERAL: well-developed and well-nourished black male lying on bed appeared to be in no discomfort. HEENT: Normocephalic. Atraumatic. No conjunctival congestion or icterus. Patient has moist mucous membranes. NECK: Supple. Trachea midline. CHEST/LUNGS: Clear to auscultated bilaterally, breathing nonlabored. No wheezes crackles or rhonchi. HEART/CARDIOVASCULAR: Regular in rate and rhythm. S1 and S2 positive. ABDOMEN: Abdomen is soft, nontender. Patient has normal bowel sounds. SKIN: There is no rash. Warm and dry. NEURO: No focal motor deficit. Follows command. AAo x3 MUSCULOSKELETAL: No joint effusion or tenderness. EXTRIMITY: No edema, no cyanosis or clubbing. PSYCH: Cooperative. - Constitutional Vitals: Vital Signs - 12hr 07/27/20 07/27/20 07/27/20 03:29 04:00 08:31 Temperature 97.6 F 98.5 F Pulse Rate 92 H 92 H 90 Respiratory 16 18 Rate Blood Pressure 133/85 127/93 O2 Sat by Pulse 97 99 Oximetry 07/27/20 07/27/20 10:00 12:02 Temperature Pulse Rate 90 Respiratory 20 Rate Blood Pressure O2 Sat by Pulse 98 Oximetry - Labs CBC & Chem 7: 07/26/20 06:49 07/28/20 05:04 Labs: Abnormal lab results 07/26/20 07/26/20 07/27/20 Range/Units 16:47 20:45 01:23 Sodium (137-145) mmol/L Chloride (98-107) mmol/L Glucose (75-100) mg/dL POC Glucose 274 H 395 H 195 H (70-105) 07/27/20 07/27/20 07/27/20 Range/Units 05:11 05:41 09:35 Sodium 150 H (137-145) mmol/L Chloride 110.3 H (98-107) mmol/L Glucose 219 H (75-100) mg/dL POC Glucose 224 H 238 H (70-105) HEART Score - HEART Score Troponin: Troponin T 0.015 ng/mL (0.00-0.029) 07/22/20 21:21
[2020-07-28] MEDS: INSULIN LISPRO 100 UNIT/ML VIAL 3 mL SUB-Q SCH ×4 (01:30→13:18)
[2020-07-28] MEDS: DEXTROSE 5% IN WATER 1,000 ML IV SCH (05:48)
[2020-07-28] MEDS: HEPARIN 5,000 UNIT/1 ML VIAL SUB-Q SCH ×2 (05:49→13:20)
[2020-07-28 06:56] LABS: BUN/Creatinine Ratio 20; Blood Urea Nitrogen 16 mg/dL (9-20); Calcium 8.8 mg/dL (8.4-10.2); Hemolysis Index 2
[2020-07-28 06:59] LABS: Bilirubin,Urine NEG (Negative); Blood,Urine NEG (Negative); Color,Urine Yellow (Yellow); Protein,Urine <15 mg/dL mg/dL (Negative); RBC,Urine < 1.0 /HPF (0.0-6.0)
[2020-07-28] MEDS: INSULIN NPH/REGULAR 70/30 INJ SUB-Q SCH (08:59)
[2020-07-28] MEDS: FAMOTIDINE 20 MG TAB PO SCH (09:00)
[2020-07-28] MEDS ORDERED: metFORMIN 850 MG TAB PO SCH (11:00)
[2020-07-28 12:44] VITALS: BP 136/83
--- NOTE | 2020-07-28 14:06 | Progress Note ---
Assessment and Plan Patient awake. Resting on room air. O2 saturation 99%. No respiratory distress. Patient afebrile. No leukocytosis. Patient admitted for DKA. Last Blood sugur 218. Anion gap 14. Patient going home to day. Recommend to follow with his primary care doctor. - Patient Problems (1) DKA (diabetic ketoacidoses) Current Visit: Yes Status: Acute Qualifiers: Diabetes mellitus type: type 2 Diabetes mellitus complication detail: with coma Qualified Code(s): E11.11 - Type 2 diabetes mellitus with ketoacidosis with coma Plan to address problem: Anion gap improving 14. Management as per primary care. (2) Hyperkalemia Current Visit: Yes Status: Acute Plan to address problem: Improved. To days K+ 3.9. (3) Metabolic encephalopathy Current Visit: Yes Status: Acute Plan to address problem: Management as per Primary care. (4) Rhabdomyolysis Current Visit: Yes Status: Acute Qualifiers: Rhabdomyolysis type: non-traumatic Qualified Code(s): M62.82 - Rhabdomyolysis Plan to address problem: CPK 4,587. Patient is on I/V fluids. Continue monitor CPK levels. Subjective Date of service: 07/28/20 Principal diagnosis: DKA; Severe Hypernatremia; Acute metabolic encephalopathy; SHANICE Interval history: Patient awake. Resting on room air. O2 saturation 99%. No respiratory distress. Patient afebrile. No leukocytosis. Patient admitted for DKA. Last Blood sugur 218. Anion gap 14. Patient going home to day. Recommend to follow with his primary care doctor. Objective Vital Signs - 12hr 07/28/20 07/28/20 07/28/20 04:15 07:32 08:31 Temperature 97.3 F L 98.4 F Pulse Rate 95 H 89 Respiratory 20 20 20 Rate Blood Pressure 148/96 O2 Sat by Pulse 97 99 98 Oximetry 07/28/20 07/28/20 11:34 12:00 Temperature 98.3 F Pulse Rate 94 H 85 Respiratory 20 Rate Blood Pressure 136/83 O2 Sat by Pulse 99 Oximetry Constitutional: no acute distress, alert Eyes: non-icteric ENT: oropharynx moist Neck: supple, no lymphadenopathy, no JVD Effort: normal Ascultation: Bilateral: diminished breath sounds Percussion: Bilateral: not dull Cardiovascular: regular rate and rhythm, other (S1,S2) Gastrointestinal: normoactive bowel sounds, soft, non-tender, non-distended Integumentary: normal Extremities: no cyanosis, no edema, pink and warm, pulses normal Neurologic: normal mental status, non-focal exam (moves all extemities), pupils equal and round, CN II-XII normal, motor strength normal and Psychiatric: mood appropriate, affect normal CBC and BMP: 07/26/20 06:49 07/28/20 05:04 ABG, PT/INR, D-dimer: ABG ABG pH 7.451 pH Units (7.350-7.450) H 07/23/20 15:15 ABG pCO2 36.5 mm Hg 07/23/20 15:15 ABG pO2 84.1 mm Hg (80.0-90.0) 07/23/20 15:15 ABG O2 Saturation 96.8 % (95.0-99.0) 07/23/20 15:15 PT/INR, D-dimer PT 15.2 Sec. (12.2-14.9) H 07/24/20 04:43 INR 1.17 (0.87-1.13) H 07/24/20 04:43 Abnormal lab findings: Abnormal Labs 07/22/20 07/22/20 07/22/20 21:21 21:21 21:21 WBC 14.9 H RBC 6.80 H Hgb 19.6 H Hct 58.0 H Plt Count 138 L Lymph % (Auto) Lymph # Baso # Seg Neutrophils % Seg Neuts % (Manual) 90.0 H Lymphocytes % (Manual) 5.0 L Seg Neutrophils # Seg Neutrophils # Man 13.4 H Lymphocytes # (Manual) 0.7 L PT INR ABG pH ABG Hemoglobin VBG pH 7.269 L Oxyhemoglobin Sodium 156 H Potassium 5.6 H Chloride Carbon Dioxide 17 L BUN 47 H Creatinine 2.1 H Glucose 740 H* POC Glucose Hemoglobin A1c Calcium Phosphorus Magnesium 4.10 H AST 54 H Total Creatine Kinase 4587 H Total Protein 8.5 H Urine WBC (Auto) 07/22/20 07/22/20 07/22/20 21:31 22:37 22:37 WBC RBC Hgb Hct Plt Count Lymph % (Auto) Lymph # Baso # Seg Neutrophils % Seg Neuts % (Manual) Lymphocytes % (Manual) Seg Neutrophils # Seg Neutrophils # Man Lymphocytes # (Manual) PT INR ABG pH ABG Hemoglobin VBG pH Oxyhemoglobin Sodium 148 H D Potassium 7.2 H* D Chloride 108.5 H Carbon Dioxide 8 L* D BUN 47 H Creatinine 1.8 H Glucose 684 H* POC Glucose Hemoglobin A1c Calcium Phosphorus 6.30 H Magnesium 4.50 H AST Total Creatine Kinase Total Protein Urine WBC (Auto) 10.0 H 07/22/20 07/23/20 07/23/20 22:50 00:14 01:17 WBC RBC Hgb Hct Plt Count Lymph % (Auto) Lymph # Baso # Seg Neutrophils % Seg Neuts % (Manual) Lymphocytes % (Manual) Seg Neutrophils # Seg Neutrophils # Man Lymphocytes # (Manual) PT INR ABG pH ABG Hemoglobin VBG pH Oxyhemoglobin Sodium Potassium Chloride Carbon Dioxide BUN Creatinine Glucose POC Glucose 477 H 465 H > 500 H Hemoglobin A1c Calcium Phosphorus Magnesium AST Total Creatine Kinase Total Protein Urine WBC (Auto) 07/23/20 07/23/20 07/23/20 02:26 02:26 02:26 WBC RBC Hgb Hct Plt Count Lymph % (Auto) Lymph # Baso # Seg Neutrophils % Seg Neuts % (Manual) Lymphocytes % (Manual) Seg Neutrophils # Seg Neutrophils # Man Lymphocytes # (Manual) PT INR ABG pH ABG Hemoglobin VBG pH Oxyhemoglobin Sodium 164 H* D Potassium 5.2 H D Chloride 120.6 H Carbon Dioxide 18 L D BUN 45 H Creatinine 1.5 H Glucose 497 H POC Glucose Hemoglobin A1c 11.7 H Calcium 10.3 H Phosphorus Magnesium 3.90 H AST Total Creatine Kinase Total Protein Urine WBC (Auto) 07/23/20 07/23/20 07/23/20 02:27 03:15 04:31 WBC RBC Hgb Hct Plt Count Lymph % (Auto) Lymph # Baso # Seg Neutrophils % Seg Neuts % (Manual) Lymphocytes % (Manual) Seg Neutrophils # Seg Neutrophils # Man Lymphocytes # (Manual) PT INR ABG pH ABG Hemoglobin VBG pH Oxyhemoglobin Sodium Potassium Chloride Carbon Dioxide BUN Creatinine Glucose POC Glucose 406 H 392 H 369 H Hemoglobin A1c Calcium Phosphorus Magnesium AST Total Creatine Kinase Total Protein Urine WBC (Auto) 07/23/20 07/23/20 07/23/20 05:21 05:34 06:14 WBC RBC Hgb Hct Plt Count Lymph % (Auto) Lymph # Baso # Seg Neutrophils % Seg Neuts % (Manual) Lymphocytes % (Manual) Seg Neutrophils # Seg Neutrophils # Man Lymphocytes # (Manual) PT INR ABG pH ABG Hemoglobin VBG pH Oxyhemoglobin Sodium 166 H* Potassium Chloride 129.4 H Carbon Dioxide BUN 40 H Creatinine 1.4 H Glucose 340 H POC Glucose 280 H 140 H Hemoglobin A1c Calcium Phosphorus Magnesium AST Total Creatine Kinase Total Protein Urine WBC (Auto) 07/23/20 07/23/20 07/23/20 06:37 08:02 09:16 WBC RBC Hgb Hct Plt Count Lymph % (Auto) Lymph # Baso # Seg Neutrophils % Seg Neuts % (Manual) Lymphocytes % (Manual) Seg Neutrophils # Seg Neutrophils # Man Lymphocytes # (Manual) PT INR ABG pH ABG Hemoglobin VBG pH Oxyhemoglobin Sodium Potassium Chloride Carbon Dioxide BUN Creatinine Glucose POC Glucose 290 H 285 H 258 H Hemoglobin A1c Calcium Phosphorus Magnesium AST Total Creatine Kinase Total Protein Urine WBC (Auto) 07/23/20 07/23/20 07/23/20 10:17 11:18 13:34 WBC RBC Hgb Hct Plt Count Lymph % (Auto) Lymph # Baso # Seg Neutrophils % Seg Neuts % (Manual) Lymphocytes % (Manual) Seg Neutrophils # Seg Neutrophils # Man Lymphocytes # (Manual) PT INR ABG pH ABG Hemoglobin VBG pH Oxyhemoglobin Sodium Potassium Chloride Carbon Dioxide BUN Creatinine Glucose POC Glucose 107 H 267 H 221 H Hemoglobin A1c Calcium Phosphorus Magnesium AST Total Creatine Kinase Total Protein Urine WBC (Auto) 07/23/20 07/23/20 07/23/20 14:17 14:40 15:08 WBC RBC Hgb Hct Plt Count Lymph % (Auto) Lymph # Baso # Seg Neutrophils % Seg Neuts % (Manual) Lymphocytes % (Manual) Seg Neutrophils # Seg Neutrophils # Man Lymphocytes # (Manual) PT INR ABG pH ABG Hemoglobin VBG pH Oxyhemoglobin Sodium 165 H* Potassium Chloride 131.2 H Carbon Dioxide 21 L BUN 32 H Creatinine Glucose 133 H POC Glucose 167 H 148 H Hemoglobin A1c Calcium Phosphorus Magnesium AST Total Creatine Kinase Total Protein Urine WBC (Auto) 07/23/20 07/23/20 07/23/20 15:15 20:14 21:09 WBC RBC Hgb Hct Plt Count Lymph % (Auto) Lymph # Baso # Seg Neutrophils % Seg Neuts % (Manual) Lymphocytes % (Manual) Seg Neutrophils # Seg Neutrophils # Man Lymphocytes # (Manual) PT INR ABG pH 7.451 H ABG Hemoglobin 18.8 H VBG pH Oxyhemoglobin 94.5 L Sodium Potassium Chloride Carbon Dioxide BUN Creatinine Glucose POC Glucose 159 H 154 H Hemoglobin A1c Calcium Phosphorus Magnesium AST Total Creatine Kinase Total Protein Urine WBC (Auto) 07/23/20 07/23/20 07/23/20 22:22 23:04 23:35 WBC RBC Hgb Hct Plt Count Lymph % (Auto) Lymph # Baso # Seg Neutrophils % Seg Neuts % (Manual) Lymphocytes % (Manual) Seg Neutrophils # Seg Neutrophils # Man Lymphocytes # (Manual) PT INR ABG pH ABG Hemoglobin VBG pH Oxyhemoglobin Sodium 163 H* Potassium 5.6 H Chloride 129.2 H Carbon Dioxide 21 L BUN 32 H Creatinine Glucose 175 H POC Glucose 145 H 176 H Hemoglobin A1c Calcium Phosphorus Magnesium AST Total Creatine Kinase Total Protein Urine WBC (Auto) 07/24/20 07/24/20 07/24/20 00:16 00:55 01:02 WBC RBC Hgb Hct Plt Count Lymph % (Auto) Lymph # Baso # Seg Neutrophils % Seg Neuts % (Manual) Lymphocytes % (Manual) Seg Neutrophils # Seg Neutrophils # Man Lymphocytes # (Manual) PT INR ABG pH ABG Hemoglobin VBG pH Oxyhemoglobin Sodium 166 H* Potassium Chloride 128.6 H Carbon Dioxide BUN 31 H Creatinine 1.4 H Glucose 216 H POC Glucose 157 H 207 H Hemoglobin A1c Calcium Phosphorus Magnesium AST Total Creatine Kinase Total Protein Urine WBC (Auto) 07/24/20 07/24/20 07/24/20 01:57 03:03 04:18 WBC RBC Hgb Hct Plt Count Lymph % (Auto) Lymph # Baso # Seg Neutrophils % Seg Neuts % (Manual) Lymphocytes % (Manual) Seg Neutrophils # Seg Neutrophils # Man Lymphocytes # (Manual) PT INR ABG pH ABG Hemoglobin VBG pH Oxyhemoglobin Sodium Potassium Chloride Carbon Dioxide BUN Creatinine Glucose POC Glucose 235 H 174 H 149 H Hemoglobin A1c Calcium Phosphorus Magnesium AST Total Creatine Kinase Total Protein Urine WBC (Auto) 07/24/20 07/24/20 07/24/20 04:43 04:43 04:43 WBC 13.0 H RBC 6.40 H Hgb 18.5 H Hct 54.2 H Plt Count Lymph % (Auto) 6.7 L Lymph # 0.9 L Baso # 0.2 H Seg Neutrophils % 87.0 H Seg Neuts % (Manual) Lymphocytes % (Manual) Seg Neutrophils # 11.3 H Seg Neutrophils # Man Lymphocytes # (Manual) PT 15.2 H INR 1.17 H ABG pH ABG Hemoglobin VBG pH Oxyhemoglobin Sodium 167 H* Potassium Chloride 127.0 H Carbon Dioxide BUN 29 H Creatinine Glucose 149 H POC Glucose Hemoglobin A1c Calcium Phosphorus Magnesium AST Total Creatine Kinase Total Protein Urine WBC (Auto) 07/24/20 07/24/20 07/24/20 05:23 06:25 07:28 WBC RBC Hgb Hct Plt Count Lymph % (Auto) Lymph # Baso # Seg Neutrophils % Seg Neuts % (Manual) Lymphocytes % (Manual) Seg Neutrophils # Seg Neutrophils # Man Lymphocytes # (Manual) PT INR ABG pH ABG Hemoglobin VBG pH Oxyhemoglobin Sodium 164 H* Potassium Chloride 126.0 H Carbon Dioxide BUN 27 H Creatinine Glucose 167 H POC Glucose 125 H 140 H Hemoglobin A1c Calcium Phosphorus Magnesium AST Total Creatine Kinase Total Protein Urine WBC (Auto) 07/24/20 07/24/20 07/24/20 07:30 08:29 09:33 WBC RBC Hgb Hct Plt Count Lymph % (Auto) Lymph # Baso # Seg Neutrophils % Seg Neuts % (Manual) Lymphocytes % (Manual) Seg Neutrophils # Seg Neutrophils # Man Lymphocytes # (Manual) PT INR ABG pH ABG Hemoglobin VBG pH Oxyhemoglobin Sodium Potassium Chloride Carbon Dioxide BUN Creatinine Glucose POC Glucose 140 H 146 H 161 H Hemoglobin A1c Calcium Phosphorus Magnesium AST Total Creatine Kinase Total Protein Urine WBC (Auto) 07/24/20 07/24/20 07/24/20 10:12 11:20 12:12 WBC RBC Hgb Hct Plt Count Lymph % (Auto) Lymph # Baso # Seg Neutrophils % Seg Neuts % (Manual) Lymphocytes % (Manual) Seg Neutrophils # Seg Neutrophils # Man Lymphocytes # (Manual) PT INR ABG pH ABG Hemoglobin VBG pH Oxyhemoglobin Sodium 165 H* Potassium Chloride 124.4 H Carbon Dioxide BUN 25 H Creatinine Glucose 107 H POC Glucose 151 H 131 H Hemoglobin A1c Calcium Phosphorus Magnesium AST Total Creatine Kinase Total Protein Urine WBC (Auto) 07/24/20 07/24/20 07/24/20 13:13 14:15 15:26 WBC RBC Hgb Hct Plt Count Lymph % (Auto) Lymph # Baso # Seg Neutrophils % Seg Neuts % (Manual) Lymphocytes % (Manual) Seg Neutrophils # Seg Neutrophils # Man Lymphocytes # (Manual) PT INR ABG pH ABG Hemoglobin VBG pH Oxyhemoglobin Sodium Potassium Chloride Carbon Dioxide BUN Creatinine Glucose POC Glucose 126 H 143 H 144 H Hemoglobin A1c Calcium Phosphorus Magnesium AST Total Creatine Kinase Total Protein Urine WBC (Auto) 07/24/20 07/24/20 07/24/20 16:10 17:03 17:27 WBC RBC Hgb Hct Plt Count Lymph % (Auto) Lymph # Baso # Seg Neutrophils % Seg Neuts % (Manual) Lymphocytes % (Manual) Seg Neutrophils # Seg Neutrophils # Man Lymphocytes # (Manual) PT INR ABG pH ABG Hemoglobin VBG pH Oxyhemoglobin Sodium Potassium Chloride Carbon Dioxide BUN Creatinine Glucose POC Glucose 136 H 121 H 151 H Hemoglobin A1c Calcium Phosphorus Magnesium AST Total Creatine Kinase Total Protein Urine WBC (Auto) 07/24/20 07/24/20 07/24/20 17:50 20:11 20:42 WBC RBC Hgb Hct Plt Count Lymph % (Auto) Lymph # Baso # Seg Neutrophils % Seg Neuts % (Manual) Lymphocytes % (Manual) Seg Neutrophils # Seg Neutrophils # Man Lymphocytes # (Manual) PT INR ABG pH ABG Hemoglobin VBG pH Oxyhemoglobin Sodium 160 H Potassium Chloride 121.2 H Carbon Dioxide BUN 21 H Creatinine Glucose 252 H POC Glucose 141 H 227 H Hemoglobin A1c Calcium Phosphorus Magnesium AST Total Creatine Kinase Total Protein Urine WBC (Auto) 07/25/20 07/25/20 07/25/20 00:52 02:13 05:48 WBC RBC Hgb Hct Plt Count Lymph % (Auto) Lymph # Baso # Seg Neutrophils % Seg Neuts % (Manual) Lymphocytes % (Manual) Seg Neutrophils # Seg Neutrophils # Man Lymphocytes # (Manual) PT INR ABG pH ABG Hemoglobin VBG pH Oxyhemoglobin Sodium 158 H 157 H Potassium Chloride 118.8 H 118.7 H Carbon Dioxide BUN 21 H Creatinine Glucose 296 H 286 H POC Glucose 318 H Hemoglobin A1c Calcium Phosphorus Magnesium AST Total Creatine Kinase Total Protein Urine WBC (Auto) 07/25/20 07/25/20 07/25/20 05:51 08:34 11:17 WBC RBC Hgb Hct Plt Count Lymph % (Auto) Lymph # Baso # Seg Neutrophils % Seg Neuts % (Manual) Lymphocytes % (Manual) Seg Neutrophils # Seg Neutrophils # Man Lymphocytes # (Manual) PT INR ABG pH ABG Hemoglobin VBG pH Oxyhemoglobin Sodium Potassium Chloride Carbon Dioxide BUN Creatinine Glucose POC Glucose 265 H 263 H 285 H Hemoglobin A1c Calcium Phosphorus Magnesium AST Total Creatine Kinase Total Protein Urine WBC (Auto) 07/25/20 07/25/20 07/25/20 13:33 17:52 21:10 WBC RBC Hgb Hct Plt Count Lymph % (Auto) Lymph # Baso # Seg Neutrophils % Seg Neuts % (Manual) Lymphocytes % (Manual) Seg Neutrophils # Seg Neutrophils # Man Lymphocytes # (Manual) PT INR ABG pH ABG Hemoglobin VBG pH Oxyhemoglobin Sodium Potassium Chloride Carbon Dioxide BUN Creatinine Glucose POC Glucose 229 H 308 H 328 H Hemoglobin A1c Calcium Phosphorus Magnesium AST Total Creatine Kinase Total Protein Urine WBC (Auto) 07/26/20 07/26/20 07/26/20 01:27 05:27 06:49 WBC RBC Hgb Hct Plt Count Lymph % (Auto) Lymph # Baso # Seg Neutrophils % Seg Neuts % (Manual) Lymphocytes % (Manual) Seg Neutrophils # Seg Neutrophils # Man Lymphocytes # (Manual) PT INR ABG pH ABG Hemoglobin VBG pH Oxyhemoglobin Sodium 151 H Potassium Chloride 110.7 H Carbon Dioxide BUN Creatinine Glucose 288 H POC Glucose 366 H 313 H Hemoglobin A1c Calcium Phosphorus Magnesium AST Total Creatine Kinase Total Protein Urine WBC (Auto) 07/26/20 07/26/20 07/26/20 06:49 08:58 11:53 WBC RBC 5.41 H Hgb 15.6 H Hct 46.3 H D Plt Count 91 L Lymph % (Auto) Lymph # 1.1 L Baso # Seg Neutrophils % 75.5 H Seg Neuts % (Manual) Lymphocytes % (Manual) Seg Neutrophils # Seg Neutrophils # Man Lymphocytes # (Manual) PT INR ABG pH ABG Hemoglobin VBG pH Oxyhemoglobin Sodium Potassium Chloride Carbon Dioxide BUN Creatinine Glucose POC Glucose 247 H 247 H Hemoglobin A1c Calcium Phosphorus Magnesium AST Total Creatine Kinase Total Protein Urine WBC (Auto) 07/26/20 07/26/20 07/27/20 16:47 20:45 01:23 WBC RBC Hgb Hct Plt Count Lymph % (Auto) Lymph # Baso # Seg Neutrophils % Seg Neuts % (Manual) Lymphocytes % (Manual) Seg Neutrophils # Seg Neutrophils # Man Lymphocytes # (Manual) PT INR ABG pH ABG Hemoglobin VBG pH Oxyhemoglobin Sodium Potassium Chloride Carbon Dioxide BUN Creatinine Glucose POC Glucose 274 H 395 H 195 H Hemoglobin A1c Calcium Phosphorus Magnesium AST Total Creatine Kinase Total Protein Urine WBC (Auto) 07/27/20 07/27/20 07/27/20 05:11 05:41 09:35 WBC RBC Hgb Hct Plt Count Lymph % (Auto) Lymph # Baso # Seg Neutrophils % Seg Neuts % (Manual) Lymphocytes % (Manual) Seg Neutrophils # Seg Neutrophils # Man Lymphocytes # (Manual) PT INR ABG pH ABG Hemoglobin VBG pH Oxyhemoglobin Sodium 150 H Potassium Chloride 110.3 H Carbon Dioxide BUN Creatinine Glucose 219 H POC Glucose 224 H 238 H Hemoglobin A1c Calcium Phosphorus Magnesium AST Total Creatine Kinase Total Protein Urine WBC (Auto) 07/27/20 07/27/20 07/27/20 14:16 15:59 22:27 WBC RBC Hgb Hct Plt Count Lymph % (Auto) Lymph # Baso # Seg Neutrophils % Seg Neuts % (Manual) Lymphocytes % (Manual) Seg Neutrophils # Seg Neutrophils # Man Lymphocytes # (Manual) PT INR ABG pH ABG Hemoglobin VBG pH Oxyhemoglobin Sodium Potassium Chloride Carbon Dioxide BUN Creatinine Glucose POC Glucose 231 H 324 H 263 H Hemoglobin A1c Calcium Phosphorus Magnesium AST Total Creatine Kinase Total Protein Urine WBC (Auto) 07/28/20 07/28/20 07/28/20 01:45 05:04 05:53 WBC RBC Hgb Hct Plt Count Lymph % (Auto) Lymph # Baso # Seg Neutrophils % Seg Neuts % (Manual) Lymphocytes % (Manual) Seg Neutrophils # Seg Neutrophils # Man Lymphocytes # (Manual) PT INR ABG pH ABG Hemoglobin VBG pH Oxyhemoglobin Sodium Potassium Chloride Carbon Dioxide BUN Creatinine Glucose 247 H POC Glucose 246 H 218 H Hemoglobin A1c Calcium Phosphorus Magnesium AST Total Creatine Kinase Total Protein Urine WBC (Auto) 07/28/20 07/28/20 08:23 12:11 WBC RBC Hgb Hct Plt Count Lymph % (Auto) Lymph # Baso # Seg Neutrophils % Seg Neuts % (Manual) Lymphocytes % (Manual) Seg Neutrophils # Seg Neutrophils # Man Lymphocytes # (Manual) PT INR ABG pH ABG Hemoglobin VBG pH Oxyhemoglobin Sodium Potassium Chloride Carbon Dioxide BUN Creatinine Glucose POC Glucose 293 H 267 H Hemoglobin A1c Calcium Phosphorus Magnesium AST Total Creatine Kinase Total Protein Urine WBC (Auto) Allied health notes reviewed: nursing
--- NOTE | 2020-07-28 15:23 | Discharge Summary ---
Providers - Providers Date of Admission: 07/22/20 23:23 Date of discharge: 07/28/20 Attending physician: YANG EVANS 07/23/20 01:34 Consult to Dietitian/Nutrition [CONS] Routine Physician Instructions: Reason For Exam: Reason for Consult: Diet education Consult to Physician [CONS] Routine Comment: Consulting Provider: DENNYS RAMIREZ Physician Instructions: Reason For Exam: DKA 07/23/20 16:07 Consult to Physician [CONS] Routine Comment: Consulting Provider: RAY SKY Physician Instructions: Reason For Exam: hypernatremia Primary care physician: RN PROCEDURE Hospitalization Condition: Critical Pertinent studies: head CT CXR Hospital course: Patient is a 39-year-old -[place] male with no significant past medical history presented to ER with complaining of weakness and lethargy.. Patient states that he has just been tired and no energy. He has had increased urination for about 2 weeks and has also had nocturia for about 2 weeks. He has had increased thirst and hunger. Work-up in the emergency room reveals that patient is in DKA and he also had h yperkalemia. He has been started on IV fluid and insulin drip. Patient also had calcium chloride and Kayexalate in the emergency room for the hyperkalemia. He was admitted to the intensive care unit for further evaluation and management. Daily course: 07/23: Na 166 today, change iv fluid to d5w, monitor BMP, cont insulin drip. 07/24: Na level still 164- 165 today, cont hypotonic saline. called and updated 07/25: Mental status much improved, sodium level 157 today, continue hypotonic saline, start consistent carb diet, DC insulin drip and placed on long-acting insulin along with sliding scale. Continue to adjust insulin dose for better control blood glucose level. Transfer to telemetry. 07/26: Na 151 today, other electrolytes are stable. Continue consistent carb diet. Continue to adjust long-acting insulin dose along with sliding scale. If sodium level continue to improves possible discharge tomorrow. Provide dietary and diabetic education 07/27: Na 150 today. Continue consistent carb diet. Continue to adjust long- acting insulin dose along with sliding scale. If sodium level <150 possible discharge tomorrow 07/28: Na 145 today. d/c home with insulin regimen, metformin and HH. Recommended to check blood glucose at home QACHS, to keep blood glucose diary and to follow-up with primary care physician in 1 week. Discharge diagnosis: --DKA (diabetic ketoacidoses) Blood glucose was 740 on admission Patient started on IV fluid and insulin drip. Anion gap closed, patient then started on long-acting insulin along with sliding scale, discontinued insulin drip Started on consistent carb diet Adjusted insulin dose for better control blood glucose level --New onset diabetes mellitus likely type II -A1c 11.7 -Provide diabetic education -Continue consistent carb diet and continue long-acting and sliding scale insulin --Acute metabolic encephalopathy, now resolved Likely from DKA and hyponatremia --hypernatremia, improved with hypotonic fluid -- Hyperkalemia, resolved Patient has been given IV fluid, calcium chloride and Kayexalate. --SHANICE, likely vasomotor nephropathy, resolved with IV fluid -- DVT prophylaxis patient on subcutaneous heparin. -- Full code status Disposition: [id number] HOME UNDER HOME [facility] Time spent for discharge: 34 minutes Core Measure Documentation - Palliative Care Palliative Care/ Comfort Measures: Not Applicable - Core Measures Any of the following diagnoses?: none Exam - Physical Exam Narrative exam: GENERAL: well-developed and well-nourished black male lying on bed appeared to be in no discomfort. HEENT: Normocephalic. Atraumatic. No conjunctival congestion or icterus. Patient has moist mucous membranes. NECK: Supple. Trachea midline. CHEST/LUNGS: Clear to auscultated bilaterally, breathing nonlabored. No wheezes crackles or rhonchi. HEART/CARDIOVASCULAR: Regular in rate and rhythm. S1 and S2 positive. ABDOMEN: Abdomen is soft, nontender. Patient has normal bowel sounds. SKIN: There is no rash. Warm and dry. NEURO: No focal motor deficit. Follows command. AAo x3 MUSCULOSKELETAL: No joint effusion or tenderness. EXTRIMITY: No edema, no cyanosis or clubbing. PSYCH: Cooperative. - Constitutional Vitals: Temp Pulse Resp BP Pulse Ox 98.3 F 85 20 136/83 99 07/28/20 11:34 07/28/20 12:00 07/28/20 11:34 07/28/20 11:34 07/28/20 11:34 Plan Activity: advance as tolerated Weight Bearing Status: Weight Bear as Tolerated Diet: diabetic Special Instructions: record blood sugar diary Additional Instructions: Please check blood glucose pre-meal and at bedtime. Please keep blood glucose diary. Follow-up with primary care physician in 1 week. Call PCP if blood glucose persistently greater than 350. If symptoms worsen please come back to ER Follow up with: PRIMARY CARE, [Primary Care Provider] - 3-5 Days Prescriptions: Butalb/Acetamin/Caff 50-325-40 [Fioricet 50-325-40] 1 tab PO Q4H PRN #7 tablet PRN Reason: Headache metFORMIN [Glucophage] 850 mg PO BIDDIAB #60 tablet Insulin Lispro [Humalog] 0 unit SUB-Q ACHS 30 Days Insulin NPH/Regular [NovoLIN 70/30] 20 unit SUB-Q BIDDIAB 30 Days Other Discharge Orders: Glucometer (Amb) Location: None Selected Glucometer supplies[Amb] Location: None Selected
== END 2020-07-28 16:18 | disposition home or self-care (01) | DRG 637 ==
LOC: ED 21:13 → CC1 23:23 → 4A 07-25 13:00
PROVIDERS: ADMIT Internal Medicine Geriatric Medicine; ATTEND Internal Medicine
PROC: 4A033R1 Measurement of Arterial Saturation, Peripheral, Percutaneous Approach (ICD-10-PCS; principal; 2020-07-23)
DX: E11.11 Type 2 diabetes mellitus with ketoacidosis with coma (principal); N17.0 Acute kidney failure with tubular necrosis; G93.41 Metabolic encephalopathy; M62.82 Rhabdomyolysis; E87.0 Hyperosmolality and hypernatremia; E87.5 Hyperkalemia; E86.0 Dehydration
CPT/HCPCS: 36415; 70450; 71045; 80048; 80053; 81001; 82550; 82803; 82805; 82962; 83036; 83735; 83935; 84100; 84484; 85007; 85025; 85610; 87040; 87086; 93005; 96361; 96365; 96375; G0378; J0696; J1644; J1815; J2270; J7030; J7070; J7120